=== PATIENT | female | born 1935 | race Caucasian/White ===

== ENCOUNTER → 2017-08-29 | Outpatient (CLI) | payer MEDICARE, SELFPAY | PROVIDERS: Visit Provider Nurse Practitioner Family | DX: R10.11 Right upper quadrant pain (principal) | CPT/HCPCS: 76705 ==

== ENCOUNTER 2017-10-14 14:24 | Emergency (ER) | payer MEDICARE, SELFPAY ==
[2017-10-14 14:30] VITALS: BP 118/70; PULSE 105; RESP 20; TEMP 36.7; O2SAT 96; BMI 34.0
[2017-10-14 15:08] VITALS: BP 125/67; PULSE 66; RESP 20; TEMP 36.6; O2SAT 98; BMI 34.0
--- NOTE | 2017-10-14 15:22 | PC.NURSE ---
STARTED BACTRIM FOR UTI YESTERDAY
--- NOTE | 2017-10-14 15:44 | HMH.EDUTC ---
[facility] [place] Disposition Clinical Impression: UTI (urinary tract infection) Qualifiers: Urinary tract infection type: site unspecified Hematuria presence: without hematuria Qualified Code(s): N39.0 - Urinary tract infection, site not specified Disposition: Home, Self-Care Condition on Discharge: Good Instructions: Urinary Tract Infection, Nitrofurantoin Additional Instructions: COntinue taking medication prescribed by family doctor Return if needed FOllow up with Family doctor if symptoms continue or worsen If you become confused or high fever go straight to ER Referrals: Jean Wade MD [Primary Care Provider] - Time of Disposition: 16:18 Medical Decision Making - Medical Records Medical records reviewed: Yes: I reviewed the patient's medical records. Vital Signs: 10/14/17 14:30 10/14/17 15:08 Temperature 98.0 F 98 F Temperature Source Oral Temporal Artery Scan Pulse Rate [Right Radial] 105 H 66 Respiratory Rate 20 20 Blood Pressure [Left Arm] 125/67 Blood Pressure [Right Arm] 118/70 Blood Pressure Mean [Left Arm] 86 Blood Pressure Mean [Right Arm] 86 Blood Pressure Source [Left Arm] Automatic Cuff Blood Pressure Source [Right Arm] Automatic Cuff Blood Pressure Position [Left Arm] Sitting Blood Pressure Position [Right Arm] Sitting 02 Sat by Pulse Oximetry 96 98 Oxygen Delivery Method Room Air Room Air - Lab Data Lab Results 10/14/17 15:03: Urine Color Yellow, Urine Appearance Clear, Urine pH 6.5, Ur Specific [place] 1.015, Urine Protein 2+, Urine Glucose (UA) Negative, Urine Ketones 15, Urine Blood 1+, Urine Nitrate Negative, Urine Bilirubin Negative, Urine Urobilinogen 0.2, Ur Leukocyte Esterase 1+ A - Tunde Inquiry Pt receiving controlled substance: No Tunde was queried for this patient: No - Reevaluation(s) Time: 16:15 Reevaluation #1: Patient was seen and treated yesterday by family doctor for UTI and started on Macrobid was worried that she may have the flu because she began to have body aches and chills. Patient flu test negative, patient advised to continued taking Macrobid as prescribed and drink plenty of fluids and if symptoms continued or worsened to follow up with Dr Wade or ER [facility] [place] HPI - General Stated complaint: weak,urinating a lot and pain,chills Mode of Arrival: Ambulatory Source of Information: Patient Limitations: No Limitations Description of Symptoms (Recalled from Triage Doc. by RN): DYSURIA BEGAN FRIDAY HEENT Symptoms (Recalled from RN notes): No Resp Symptoms (Recalled from RN notes): No Skin Symptoms (Recalled from RN notes): No MS Symptoms (Recalled from RN notes): No Functional Status (Recalled from RN notes): N - History of Present Illness Provider Complaint: Patient state that she was diagnosed with UTI yesterday by family doctor and started on Macrobid State that she has taken 2 doses and state that she is still having chills and body aches State that she is not sure if those are coming from the UTI or if she may have caught the flu at the doctors office - Related Data Allergies Allergy/AdvReac Type Severity Reaction Status Date / Time Penicillins Allergy Intermediate I-HIVES/FLAQUITO Verified 10/14/17 15:12 H - Worker's Comp Is this a Worker's Comp case?: No H History I have reviewed the patient's past medical history: Yes Laterality Cases: Right: Total Hip Replacement - *Social History Alcohol Intake: never - Psychiatric History Expresses thoughts of harming self/others: None Suicide Plan Description: No Plan ROS Obtained: Yes All systems reviewed & no additional complaints - Constitutional Constitutional: Reports body ache, Reports chills Physical Exam - General General appearance: alert, in no apparent distress - Expanded ENT Exam External ear exam: Present: normal external inspection - Respiratory Respiratory exam: Present: normal lung sounds bilaterally. Absent: respiratory distress - Cardiovascular Car
[2017-10-14 15:52] LABS: Apearance,Urine Clear (Clear); Bilirubin,Urine Negative (Negative); Blood, Urine 1+ (Negative); Color,Urine Yellow (Yellow); Glucose,Urine (UA) Negative (Negative); Ketones,Urine 15 (Negative); PH,Urine 6.5 (5.0-8.5); Protein,Urine 2+ (Negative); Specific Gravity, Urine 1.015 (1.005-1.030)
[2017-10-14 15:53] LABS: UTC Leukocyte Esterase,Urine 1+ (Negative); UTC Nitrate,Urine Negative (Negative); Urobilinogen,Urine 0.2 EU/dl (0.2)
--- NOTE | 2017-10-14 15:53 | ED_ITS ---
[facility] [place] Disposition Clinical Impression: UTI (urinary tract infection) Qualifiers: Urinary tract infection type: site unspecified Hematuria presence: without hematuria Qualified Code(s): N39.0 - Urinary tract infection, site not specified Disposition: Home, Self-Care Condition on Discharge: Good Instructions: Urinary Tract Infection, Nitrofurantoin Additional Instructions: COntinue taking medication prescribed by family doctor Return if needed FOllow up with Family doctor if symptoms continue or worsen If you become confused or high fever go straight to ER Referrals: Jean Wade MD [Primary Care Provider] - Time of Disposition: 16:18 Medical Decision Making - Medical Records Medical records reviewed: Yes: I reviewed the patient's medical records. Vital Signs: 10/14/17 14:30 10/14/17 15:08 Temperature 98.0 F 98 F Temperature Source Oral Temporal Artery Scan Pulse Rate [Right Radial] 105 H 66 Respiratory Rate 20 20 Blood Pressure [Left Arm] 125/67 Blood Pressure [Right Arm] 118/70 Blood Pressure Mean [Left Arm] 86 Blood Pressure Mean [Right Arm] 86 Blood Pressure Source [Left Arm] Automatic Cuff Blood Pressure Source [Right Arm] Automatic Cuff Blood Pressure Position [Left Arm] Sitting Blood Pressure Position [Right Arm] Sitting 02 Sat by Pulse Oximetry 96 98 Oxygen Delivery Method Room Air Room Air - Lab Data Lab Results 10/14/17 15:03: Urine Color Yellow, Urine Appearance Clear, Urine pH 6.5, Ur Specific [place] 1.015, Urine Protein 2+, Urine Glucose (UA) Negative, Urine Ketones 15, Urine Blood 1+, Urine Nitrate Negative, Urine Bilirubin Negative, Urine Urobilinogen 0.2, Ur Leukocyte Esterase 1+ A - Tunde Inquiry Pt receiving controlled substance: No Tunde was queried for this patient: No - Reevaluation(s) Time: 16:15 Reevaluation #1: Patient was seen and treated yesterday by family doctor for UTI and started on Macrobid was worried that she may have the flu because she began to have body aches and chills. Patient flu test negative, patient advised to continued taking Macrobid as prescribed and drink plenty of fluids and if symptoms continued or worsened to follow up with Dr Wade or ER [facility] [place] HPI - General Stated complaint: weak,urinating a lot and pain,chills Mode of Arrival: Ambulatory Source of Information: Patient Limitations: No Limitations Description of Symptoms (Recalled from Triage Doc. by RN): DYSURIA BEGAN FRIDAY HEENT Symptoms (Recalled from RN notes): No Resp Symptoms (Recalled from RN notes): No Skin Symptoms (Recalled from RN notes): No MS Symptoms (Recalled from RN notes): No Functional Status (Recalled from RN notes): N - History of Present Illness Provider Complaint: Patient state that she was diagnosed with UTI yesterday by family doctor and started on Macrobid State that she has taken 2 doses and state that she is still having chills and body aches State that she is not sure if those are coming from the UTI or if she may have caught the flu at the doctors office - Related Data Allergies Allergy/AdvReac Type Severity Reaction Status Date / Time Penicillins Allergy Intermediate I-HIVES/FLAQUITO Verified 10/14/17 15:12 H - Worker's Comp Is this a Worker's Comp case?: No [facility] History I have reviewed the patient's past medical history: Yes Laterality Cases: Right: Total Hip Replacement
[2017-10-14 16:27] VITALS: BP 125/67; PULSE 66; RESP 18; TEMP 36.6
[2017-10-14 16:27] LABS: UTC Influenza A Antigen Negative (Negative); UTC Influenza B Antigen Negative (Negative)
== END 2017-10-14 16:27 | disposition home or self-care (01) ==
LOC: ER 14:37 → UTC 14:43
PROVIDERS: Emergency Provider Nurse Practitioner; Family Provider Family Medicine; PCP Family Medicine
DX: N39.0 Urinary tract infection, site not specified (principal)
CPT/HCPCS: 81003; 87804; 99201

== ENCOUNTER 2017-10-18 14:10 | Observation (INO) | payer MEDICARE, SELFPAY ==
[2017-10-18] VITALS (7 sets, daily range): BP systolic 119–125; BP diastolic 65–73; PULSE 79–97; RESP 16–20; TEMP 36.6–36.9; O2SAT 94–97; BMI 33.5; BMI 32.8; BMI 34.4
--- NOTE | 2017-10-18 14:38 | HMH.EDUTC ---
[facility] [place] Disposition Clinical Impression: Pneumonia Qualifiers: Pneumonia type: due to unspecified organism Laterality: left Lung location: unspecified part of lung Qualified Code(s): J18.9 - Pneumonia, unspecified organism Disposition: Admitted As Inpatient Condition on Discharge: Fair Time of Disposition: 17:44 Medical Decision Making - Medical Records Medical records reviewed: Yes: I reviewed the patient's medical records. Vital Signs: 10/18/17 14:13 10/18/17 14:33 Temperature 98.0 F 98 F Temperature Source Oral Temporal Artery Scan Pulse Rate [Left Brachial] 97 H 97 H Respiratory Rate 20 20 Blood Pressure [Left Arm] 122/67 122/65 Blood Pressure Mean [Left Arm] 85 84 Blood Pressure Source [Left Arm] Automatic Cuff Automatic Cuff Blood Pressure Position [Left Arm] Sitting Sitting 02 Sat by Pulse Oximetry 96 Oxygen Delivery Method Room Air - Lab Data Lab results reviewed: Yes: I reviewed the patient's lab results. Lab Results 10/18/17 15:25: WBC 18.7 H, RBC 3.76 L, Hgb 11.1 L, Hct 34.7 L, MCV 92.5, MCH 29.7, MCHC 32.1, RDW 12.1, Plt Count 273, MPV 7.9, Neut % (Auto) 90.1 H, Lymph % (Auto) 5.0 L, [place] % (Auto) 3.9, Eos % (Auto) 0.8, Baso % (Auto) 0.2, Neut # (Auto) 16.9 H, Lymph # (Auto) 0.9, [place] # (Auto) 0.7, Eos # (Auto) 0.2, Baso # (Auto) 0.1, Total Counted 100, Neutrophils % (Manual) 87 H, Band Neutrophils % 1.0, Lymphocytes % (Manual) 5 L, Monocytes % (Manual) 5, Eosinophils % (Manual) 2, Platelet Estimate Normal, RBC Morphology Normal 10/18/17 15:25: Sodium 138, Potassium 4.7, Chloride 102, Carbon Dioxide 24, Anion Gap 16.7 H, BUN 23 H, Creatinine 1.11 H, Estimated Creat Clear 54, Estimated GFR 47 L, Est GFR ( Amer) 57 L, Glucose 131 H, Calcium 9.1, Total Bilirubin 0.4, AST 21, ALT 29, Alkaline Phosphatase 107, Total Protein 7.4, Albumin 3.0 L, Globulin 4.4 H, Albumin/Globulin Ratio 0.7 L 10/18/17 15:25: Hemoglobin A1c 6.5 Result diagrams: 10/18/17 15:25 10/18/17 15:25 Orders (Tests/Meds): ED MEDICATIONS Generic Name Dose Route Start Last Admin Trade Name Freq PRN Reason Stop Dose Admin Acetaminophen 650 mg 10/18/17 16:39 Acetaminophen 325mg Tab PO 11/17/17 16:38 Q4HP PRN As Needed for Fever or Pain Hydrocodone Bitart/Acetaminophen tab 10/18/17 16:39 [place] 5/325mg Tablet PO 11/17/17 16:38 Q4HP PRN Moderate Pain Albuterol Sulfate 2.5 mg 10/18/17 16:46 Albuterol 0.083% 2.5mg/3ml Neb IH 11/17/17 16:45 Q4HP PRN Wheezing Sodium Chloride 1,000 mls @ 50 mls/hr 10/18/17 16:45 Sod Chlor 0.9% 1000ml Bag IV 11/17/17 16:44 .Q20H GENESIS Levofloxacin/Dextrose 500 mg in 100 mls @ 100 mls/hr 10/18/17 16:45 Levaquin 500mg/100ml Premix IV 11/01/17 16:44 Q24H GENESIS Protocol Azithromycin 500 mg/ Sodium 250 mls @ 250 mls/hr 10/18/17 16:45 Chloride IV 11/01/17 16:44 Q24H GENESIS Protocol Methylprednisolone Sodium Succinate 125 mg 10/18/17 16:47 Solu-Medrol 125mg/2ml Vial IV 10/18/17 16:48 ONCE ONE Pantoprazole Sodium 40 mg 10/19/17 09:00 Protonix 40mg Tablet PO 11/18/17 08:59 DAILY GENESIS ORDERS Category Date Time Status Lactic Acid Stat Lab 10/18/17 16:44 Ordered Urine Culture Stat Micro 10/18/17 15:39 Received - Radiology Data #1 Image(s): Chest Image Reviewed: Yes I reviewed the patient's radiology image w/the ED provider Preliminary Findings: Abnormal (left perihilar infiltrate) - Tunde Inquiry Pt receiving controlled substance: No [facility] [place] HPI - General Stated complaint: cough Time Seen by Provider: 10/18/17 14:38 Mode of Arrival: Ambulatory Source of Information: Patient Limitations: No Limitations Description of Symptoms (Recalled from Triage Doc. by RN): PT ADVISES SHE WAS RECENTLY DX WITH A UTI. PT HAS SINCE DEVELOPED A COUGH AND FEVER HEENT Symptoms (Recalled from RN notes): No Resp Symptoms (Recalled from RN notes): Yes (COUGH)
--- NOTE | 2017-10-18 14:43 | ED_ITS ---
[facility] [place] Clinical Impression: Pneumonia Qualifiers: Pneumonia type: due to unspecified organism Laterality: left Lung location: unspecified part of lung Qualified Code(s): J18.9 - Pneumonia, unspecified organism Disposition: Admitted As Inpatient Condition on Discharge: Fair Time of Disposition: 17:44 Medical Decision Making - Medical Records Medical records reviewed: Yes: I reviewed the patient's medical records. Vital Signs: 10/18/17 14:13 10/18/17 14:33 Temperature 98.0 F 98 F Temperature Source Oral Temporal Artery Scan Pulse Rate [Left Brachial] 97 H 97 H Respiratory Rate 20 20 Blood Pressure [Left Arm] 122/67 122/65 Blood Pressure Mean [Left Arm] 85 84 Blood Pressure Source [Left Arm] Automatic Cuff Automatic Cuff Blood Pressure Position [Left Arm] Sitting Sitting 02 Sat by Pulse Oximetry 96 Oxygen Delivery Method Room Air - Lab Data Lab results reviewed: Yes: I reviewed the patient's lab results. Lab Results 10/18/17 15:25: WBC 18.7 H, RBC 3.76 L, Hgb 11.1 L, Hct 34.7 L, MCV 92.5, MCH 29.7, MCHC 32.1, RDW 12.1, Plt Count 273, MPV 7.9, Neut % (Auto) 90.1 H, Lymph % (Auto) 5.0 L, [place] % (Auto) 3.9, Eos % (Auto) 0.8, Baso % (Auto) 0.2, Neut # ( Auto) 16.9 H, Lymph # (Auto) 0.9, [place] # (Auto) 0.7, Eos # (Auto) 0.2, Baso # ( Auto) 0.1, Total Counted 100, Neutrophils % (Manual) 87 H, Band Neutrophils % 1.0, Lymphocytes % (Manual) 5 L, Monocytes % (Manual) 5, Eosinophils % (Manual) 2, Platelet Estimate Normal, RBC Morphology Normal 10/18/17 15:25: Sodium 138, Potassium 4.7, Chloride 102, Carbon Dioxide 24, Anion Gap 16.7 H, BUN 23 H, Creatinine 1.11 H, Estimated Creat Clear 54, Estimated GFR 47 L, Est GFR ( Amer) 57 L, Glucose 131 H, Calcium 9.1, Total Bilirubin 0.4, AST 21, ALT 29, Alkaline Phosphatase 107, Total Protein 7.4 , Albumin 3.0 L, Globulin 4.4 H, Albumin/Globulin Ratio 0.7 L 10/18/17 15:25: Hemoglobin A1c 6.5 Result diagrams: 10/18/17 15:25 10/18/17 15:25 Orders (Tests/Meds): ED MEDICATIONS Generic Name Dose Route Start Last Admin Trade Name Freq PRN Reason Stop Dose Admin Acetaminophen 650 mg 10/18/17 16:39 Acetaminophen 325mg Tab PO 11/17/17 16:38 Q4HP PRN As Needed for Fever or Pain Hydrocodone Bitart/Acetaminophen tab 10/18/17 16:39 [place] 5/325mg Tablet PO 11/17/17 16:38 Q4HP PRN Moderate Pain Albuterol Sulfate 2.5 mg 10/18/17 16:46 Albuterol 0.083% 2.5mg/3ml Neb IH 11/17/17 16:45 Q4HP PRN Wheezing Sodium Chloride 1,000 mls @ 50 mls/hr 10/18/17 16:45 Sod Chlor 0.9% 1000ml Bag IV 11/17/17 16:44 .Q20H GENESIS Levofloxacin/Dextrose 500 mg in 100 mls @ 100 mls/hr 10/18/17 16:45 Levaquin 500mg/100ml Premix IV 11/01/17 16:44 Q24H GENESIS Protocol Azithromycin 500 mg/ Sodium 250 mls @ 250 mls/hr 10/18/17 16:45 Chloride IV 11/01/17 16:44 Q24H GENESIS Protocol Methylprednisolone Sodium Succinate 125 mg 10/18/17 16:47 Solu-Medrol 125mg/2ml Vial IV 10/18/17 16:48 ONCE ONE Pantoprazole Sodium 40 mg 10/19/17 09:00 Protonix 40mg Tablet PO 11/18/17 08:59 DAILY GENESIS ORDERS Category Date Time Status Lactic Acid Stat Lab 10/18/17 16:44 Ordered Urine Cul
--- NOTE | 2017-10-18 15:16 | XR_ITS ---
XR chest 2V HISTORY: ITS.REASON: COUGH ORDERING PHYSICIAN: JAYCE Sr PATIENT AGE: 82 years COMPARISON: 07/17/2016 FINDINGS: The cardiomediastinal silhouette and pulmonary vascularity are within normal limits. Patchy density is present in the left midlung and left lower lobe with small left effusion.. Degenerative changes thoracic spine with mild kyphosis. IMPRESSION: Left lower lobe pneumonia with small effusion
[2017-10-18 15:36] LABS: Basophils # 0.1 K/mm3 (0-0.2); Basophils % 0.2 % (0.1-2.0); Eosinophils # 0.2 K/mm3 (0.0-0.4); Eosinophils % 0.8 % (0.1-12.0); Hematocrit 34.7 % (37.0-47.0); Hemoglobin 11.1 g/dL (12.2-16.2); Lymphocytes # 0.9 K/mm3 (0.7-4.5); Mean Corpuscular HGB Conc 32.1 g/dL (31.8-35.4); Mean Corpuscular Hemoglobin 29.7 pg (27.0-31.2); Mean Corpuscular Volume 92.5 fl (81-99); Mean Platelet Volume 7.9 fl (7.4-10.4); Monocytes # 0.7 K/mm3 (0.1-1.0); Monocytes % 3.9 % (1.7-9.3); Neutrophils # 16.9 K/mm3 (1.8-7.8); Neutrophils % 90.1 % (37.0-80.0); Platelet Count 273 K/mm3 (142-424); Red Blood Count 3.76 M/mm3 (4.20-5.40); Red Cell Distribution Width 12.1 % (11.5-17.5); White Blood Count 18.7 K/mm3 (4.8-10.8)
[2017-10-18 15:39] LABS: MANUAL DIFFERENTIAL MANUAL DIFFERENTIAL (MANUAL DIFF)
[2017-10-18 15:48] LABS: Alanine Aminotransferase 29 U/L (12-78); Albumin/Globulin Ratio 0.7 (1.1-1.8); Alkaline Phosphatase 107 U/L (46-116); Anion Gap 16.7 mEq/L (5-15); Aspartate Amino Transferase 21 U/L (15-37); Bilirubin,Total 0.4 mg/dL (0.2-1.0); Blood Urea Nitrogen 23 mg/dL (7-18); Calcium 9.1 mg/dL (8.5-10.1); Carbon Dioxide 24 mmol/L (21.0-32.0); Chloride 102 mmol/L (98-107); Creatinine Clearance Estimated 54 mL/min (0-300); Creatinine,Serum 1.11 mg/dL (0.55-1.02); Estimated Glomerular Filt Rate 47 ml/min (>60); GFR (African American) 57 ML/MIN (>60); Globulin 4.4 gm/dl (1.3-3.2); Glucose 131 mg/dL (74-106); Potassium 4.7 mmoL/L (3.5-5.1); Sodium 138 mmol/L (136-145); Total Protein,Serum 7.4 gm/dL (6.4-8.2)
[2017-10-18 15:53] LABS: Hemoglobin A1C 6.5 % (0.0-7.0)
[2017-10-18 16:07] LABS: Eosinophils % 2 % (0-3); Lymphocytes % 5 % (10-50); Monocytes % 5 % (2-9); Neutrophils % 87 % (42-76); Platelet Estimate Normal; RBC Morphology Normal; Total Cells Counted 100
--- NOTE | 2017-10-18 17:14 | PC.NURSE ---
PT TO BE ADMITTED TO DR CAT' SERVICE. PT GOING TO ROOM 211
--- NOTE | 2017-10-18 18:41 | HMH.HP ---
*Admission Date: 10/18/17 *Chief complaint: Shortness of breath *History of present illness: Patient states that she called her PCP on 10/14/17 with complains of dysuria. They called her in Macrobid for UTI. Later that day, she developed fever and cough. Was seen at [facility] and tested negative for the flu. Has continued to take Macrobid for UTI but has also continued to feel worse. Fever has persisted. She then developed pain in her left low back and shortness of air with exertion. Cough is sometimes productive. Denies ear pain. Denies sore throat, but states that mouth is sore since taking Macrobid. Has some nausea. No vomiting or diarrhea. No appetite. Denies history of cardiac problems. No history of breathing problems until this event. Says urinary urgency and dysuria are improving. [facility] History I have reviewed the patient's past medical history: Yes Medical History: Denies:: Coronary Artery Disease, Diabetes Mellitus Type 1, Diabetes Mellitus Type 2, Heart Murmur Laterality Cases: Right: Total Hip Replacement - *Social History Smoking Status: Never smoker Alcohol Intake: never - Psychiatric History Expresses thoughts of harming self/others: None Suicide Plan Description: No Plan Review of Systems - Review of Systems Review of systems:: pertinent systems reviewed and negative unless documented below - Constitutional Reports body ache(s), Reports chills, Reports fever(s), Reports headache(s), Reports lack of energy, Reports malaise, Reports weakness - ENT Reports headache(s), Reports other (mouth soreness), Denies ear pain, Denies sinus pressure, Denies sore throat - *Cardiovascular Reports shortness of breath, Denies chest pain - *Respiratory Reports chest congestion, Reports shortness of breath - *Gastrointestinal Reports nausea, Denies loose stools, Denies vomiting - *Genitourinary Reports painful urination, Reports urinary urgency - *Musculoskeletal Reports back pain - *Neurologic Reports weakness, Denies dizziness Meds Allergies Allergy/AdvReac Type Severity Reaction Status Date / Time Penicillins Allergy Intermediate I-HIVES/FLAQUITO Verified 10/14/17 15:12 H Exam Vital signs and Labs for Last 24 Hours: Temp Pulse Resp BP Pulse Ox 98.0 F 79 20 119/70 97 10/18/17 17:56 10/18/17 17:56 10/18/17 17:56 10/18/17 17:56 10/18/17 17:56 - Constitutional no acute distress - *Routine HEENT Exam Head: Present: normocephalic, atraumatic Eye: Present: EOMI, PERRL. Absent: scleral injection ENT: Present: mucous membranes moist - *Routine Neck Exam Present: supple, full ROM. Absent: lymphadenopathy - Routine Chest/Breast/Axilla Exam Chest wall: Absent: tenderness - *Routine Respiratory Exam Present: decreased breath sounds, rhonchi, diminished air movement. Absent: accessory muscle use, respiratory distress Comments: left lob - *Routine Cardiovascular Exam Present: RRR. Absent: murmur - *Routine Abdominal Exam Present: soft - *Routine Extremities Exam Absent: cyanosis, clubbing, edema - Routine Back/Spine/Pelvis Exam Back/Spine: Present: CVA tenderness (mild bilaterally) - *Routine Skin Exam Present: intact, dry. Absent: cyanosis, erythema - *Routine Neurological Exam Present: alert, oriented X3 - Routine Psychiatric Exam Present: normal affect, normal thought process H&P: Result - Labs Labs: WBC 18.7. - Imaging and Cardiology Chest x-ray Additional comments: Left perihilar infiltrate Assessment and Plan (1) Pneumonia Start date: 10/18/17 Current visit: Yes Status: Acute Qualifiers: Pneumonia type: due to unspecified organism Laterality: left Lung location: unspecified part of lung Qualified Code(s): J18.9 - Pneumonia, unspecified organism Category: Medical Code(s): J18.9 - Pneumonia, unspecified organism (2) UTI (urinary tract infection) Start date: 10/14/17 Current visit: No S
--- NOTE | 2017-10-18 18:44 | P.HP_ITS ---
*Admission Date: 10/18/17 *Chief complaint: Shortness of breath *History of present illness: Patient states that she called her PCP on 10/14/17 with complains of dysuria. They called her in Macrobid for UTI. Later that day, she developed fever and cough. Was seen at [facility] and tested negative for the flu. Has continued to take Macrobid for UTI but has also continued to feel worse. Fever has persisted. She then developed pain in her left low back and shortness of air with exertion. Cough is sometimes productive. Denies ear pain. Denies sore throat, but states that mouth is sore since taking Macrobid. Has some nausea. No vomiting or diarrhea. No appetite. Denies history of cardiac problems. No history of breathing problems until this event. Says urinary urgency and dysuria are improving. [facility] History I have reviewed the patient's past medical history: Yes Medical History: Denies:: Coronary Artery Disease, Diabetes Mellitus Type 1, Diabetes Mellitus Type 2, Heart Murmur Laterality Cases: Right: Total Hip Replacement - *Social History Smoking Status: Never smoker Alcohol Intake: never - Psychiatric History Expresses thoughts of harming self/others: None Suicide Plan Description: No Plan Review of Systems - Review of Systems Review of systems:: pertinent systems reviewed and negative unless documented below - Constitutional Reports body ache(s), Reports chills, Reports fever(s), Reports headache(s), Reports lack of energy, Reports malaise, Reports weakness - ENT Reports headache(s), Reports other (mouth soreness), Denies ear pain, Denies sinus pressure, Denies sore throat - *Cardiovascular Reports shortness of breath, Denies chest pain - *Respiratory Reports chest congestion, Reports shortness of breath - *Gastrointestinal Reports nausea, Denies loose stools, Denies vomiting - *Genitourinary Reports painful urination, Reports urinary urgency - *Musculoskeletal Reports back pain - *Neurologic Reports weakness, Denies dizziness Meds Allergies Allergy/AdvReac Type Severity Reaction Status Date / Time Penicillins Allergy Intermediate I-HIVES/FLAQUITO Verified 10/14/17 15:12 H Exam Vital signs and Labs for Last 24 Hours: Temp Pulse Resp BP Pulse Ox 98.0 F 79 20 119/70 97 10/18/17 17:56 10/18/17 17:56 10/18/17 17:56 10/18/17 17:56 10/18/17 17:56 - Constitutional no acute distress - *Routine HEENT Exam Head: Present: normocephalic, atraumatic Eye: Present: EOMI, PERRL. Absent: scleral injection ENT: Present: mucous membranes moist - *Routine Neck Exam Present: supple, full ROM. Absent: lymphadenopathy - Routine Chest/Breast/Axilla Exam Chest wall: Absent: tenderness - *Routine Respiratory Exam Present: decreased breath sounds, rhonchi, diminished air movement. Absent: accessory muscle use, respiratory distress Comments: left lob - *Routine Cardiovascular Exam Present: RRR. Absent: murmur - *Routine Abdominal Exam Present: soft - *Routine Extremities Exam Absent: cyanosis, clubbing, edema - Routine Back/Spine/Pelvis Exam Back/Spine: Present: CVA tenderness (mild bilaterally) - *Routine Skin Exam Present: intact, dry. Absent: cyanosis, erythema - *Routine Neurological Exam Present: alert, oriented X3 - Routine Psychiatric Exam Present: normal affect, normal thought process H&P: Result - Labs
[2017-10-18 19:42] LABS: Lactic Acid 0.9 mmol/L (0.4-2.0)
[2017-10-19] VITALS (7 sets, daily range): BP systolic 113–165; BP diastolic 71–81; PULSE 73–95; RESP 18–20; TEMP 36.7–36.9; O2SAT 93–95
--- NOTE | 2017-10-19 03:17 | PC.NURSE ---
PT HAS RESTED BRIEF PERIODS THIS SHIFT. DENIES PAIN AND SOA. BOWEL SOUNDS ARE ACTIVE IN ALL 4 QUADS. PT MAINTAINING O2 SATS IN THE 90'S ON RA. BREATH SOUNDS WERE CLEAR ON AUSCULTATION. PT AMBULATED TO AND FROM BR INDEPENDENTLY, TOLERATES WELL. VSS. CALL LIGHT WITHIN REACH. NO ACUTE DISTRESS AT THIS TIME. WILL CONT. TO MONITOR.
--- NOTE | 2017-10-19 08:06 | HMH.ACPN2 ---
Internal Medicine - PN: Subj *Date: 10/19/17 *Time: 08:06 Interval history: Patient reports in improvement in left-sided back discomfort associated with her pneumonia. She denies shortness of breath this morning. She still feels weak and has not been out of bed yet Exam Vital signs and Labs for Last 24 Hours: Temp Pulse Resp BP Pulse Ox 98.5 F 86 20 113/71 95 10/19/17 07:18 10/19/17 07:18 10/19/17 07:18 10/19/17 07:18 10/19/17 07:18 Laboratory Results - last 24 hr 10/18/17 19:00: Lactic Acid 0.9 I & O for Last 24 hours: Intake & Output 10/16/17 10/17/17 10/18/17 10/19/17 11:59 11:59 11:59 11:59 Intake Total 329 / 329 Balance 329 / 329 Weight 190 lb 3 oz Narrative: She is in no distress and looks well. Lungs have rales at the left lung base. Heart has a regular rate and rhythm. Assessment and Plan (1) Pneumonia Start date: 10/18/17 Current visit: Yes Status: Acute Qualifiers: Pneumonia type: due to unspecified organism Laterality: left Lung location: unspecified part of lung Qualified Code(s): J18.9 - Pneumonia, unspecified organism Category: Medical Code(s): J18.9 - Pneumonia, unspecified organism (2) UTI (urinary tract infection) Start date: 10/14/17 Current visit: No Status: Acute Qualifiers: Urinary tract infection type: acute cystitis Hematuria presence: without hematuria Qualified Code(s): N30.00 - Acute cystitis without hematuria Category: Medical Code(s): N39.0 - Urinary tract infection, site not specified (3) Anemia Current visit: Yes Status: Chronic Category: Medical Code(s): D64.9 - Anemia, unspecified - Assessment and plan all Dx Assessment and Plan for all problems:: Continue antibiotics. Change to Rocephin and azithromycin. Patient does have a penicillin allergy but I believe her Rocephin will be safe to give. Anticipate short stay
--- NOTE | 2017-10-19 09:42 | P.CONPHA_ITS ---
[facility] Pharmacy VTE Monitoring - Patient Demographics Admission date: 10/19/17 Report Date: 10/19/17 Time: 09:42 Allergies/Adverse Reactions: Patient Allergies Penicillins Allergy (Intermediate, Verified 10/14/17 15:12) I-HIVES/RASH Height: 1.57 m Weight: 86.268 kg Patient Problems: Current Active Problems Pneumonia (Acute) Anemia (Chronic) - VTE Risk Labs: VTE Related Lab Results Hgb 11.1 g/dL (12.2-16.2) L 10/18/17 15:25 Hct 34.7 % (37.0-47.0) L 10/18/17 15:25 Plt Count 273 K/mm3 (142-424) 10/18/17 15:25 BUN 23 mg/dL (7-18) H 10/18/17 15:25 Creatinine 1.11 mg/dL (0.55-1.02) H 10/18/17 15:25 Estimated Creat Clear 54 mL/min (0-300) 10/18/17 15:25 Was VTE Risk Assessment Performed: Yes VTE Score: 1 VTE Risk Level: Low Risk - VTE Diagnosis Confirmed Comment: LEIA FLETCHER
[2017-10-20] VITALS: BP 107/55; PULSE 76; RESP 18; TEMP 36.5; O2SAT 95
[2017-10-20 04:00] VITALS: BP 117/55; PULSE 74; RESP 20; TEMP 36.4; O2SAT 96
--- NOTE | 2017-10-20 04:03 | PC.NURSE ---
no changes from previous assessment, pt has rested well this shift, pt did state she has been feeling flushed and itchy throughout the day, pt denies pain, states she is SOA on exertion, breath sounds are slightly diminished but otherwise clear on auscultation, pt is maintaining O2 sats at or above 90 on room air, bowel sounds are active, no acute distress noted at this time, will continue to monitor.
--- NOTE | 2017-10-20 07:25 | HMH.DCSUM ---
General - General Admission date: 10/18/17 Discharge date: 10/20/17 HPI HPI: Patient states that she called her PCP on 10/14/17 with complains of dysuria. They called her in Macrobid for UTI. Later that day, she developed fever and cough. Was seen at [facility] and tested negative for the flu. Has continued to take Macrobid for UTI but has also continued to feel worse. Fever has persisted. She then developed pain in her left low back and shortness of air with exertion. Cough is sometimes productive. Denies ear pain. Denies sore throat, but states that mouth is sore since taking Macrobid. Has some nausea. No vomiting or diarrhea. No appetite. Denies history of cardiac problems. No history of breathing problems until this event. Says urinary urgency and dysuria are improving. Objective Vital signs: Temp Pulse Resp BP Pulse Ox 97.5 F L 74 20 117/55 96 10/20/17 04:00 10/20/17 04:00 10/20/17 04:00 10/20/17 04:00 10/20/17 04:00 Narrative: On exam patient had rales in the left lung base that improved each day during hospitalization. Hospital Course Hospital Course: Was admitted for observation of worsening symptoms as well as developing oxygen requirement. She never required supplemental oxygen. Physical exam improved each day in regards to left lower lobe rales. Energy level and appetite improved. She is continued on Rocephin and azithromycin while hospitalized in the discharge was discharged home on azithromycin only. Results Labs on day of discharge: Preliminary micro results at discharge 10/18/17 19:16 Blood Culture - Preliminary Blood NO GROWTH AFTER 24 HOURS 10/18/17 19:00 Blood Culture - Preliminary Blood NO GROWTH AFTER 24 HOURS DS: Diagnosis - Discharge Diagnosis (1) Pneumonia Status: Acute (2) UTI (urinary tract infection) Status: Acute (3) Anemia Status: Chronic Meds Home Medications Medication Instructions Recorded Confirmed Type Aspirin [Aspirin 81mg EC Tab] 81 mg PO DAILY 10/19/17 10/19/17 History Celecoxib [Celecoxib] 200 mg PO BID 10/19/17 10/19/17 History Cranberry Conc/C/Bacill Coag [Azo 2 each PO DAILY 10/19/17 10/19/17 History Cranberry Tablet] Ezetimibe [Zetia] 10 mg PO HS 10/19/17 10/19/17 History Meclizine HCl [Meclizine 25mg Tab] 25 mg PO TIDP PRN 10/19/17 10/19/17 History Simvastatin [Zocor] 40 mg PO HS 10/19/17 10/19/17 History Allergies Allergy/AdvReac Type Severity Reaction Status Date / Time Penicillins Allergy Intermediate I-HIVES/FLAQUITO Verified 10/14/17 15:12 H Discharge Plan - Patient Discharge Instructions ACTIVITY: Continue current activity DIET: continue same diet - Follow up Plan Disposition: Home, Self-Long-Term Medications: Home Medications Medication Instructions Recorded Confirmed Type Aspirin [Aspirin 81mg EC Tab] 81 mg PO DAILY 10/19/17 10/19/17 History Celecoxib [Celecoxib] 200 mg PO BID 10/19/17 10/19/17 History Cranberry Conc/C/Bacill Coag [Azo 2 each PO DAILY 10/19/17 10/19/17 History Cranberry Tablet] Ezetimibe [Zetia] 10 mg PO HS 10/19/17 10/19/17 History Meclizine HCl [Meclizine 25mg Tab] 25 mg PO TIDP PRN 10/19/17 10/19/17 History Simvastatin [Zocor] 40 mg PO HS 10/19/17 10/19/17 History Prescriptions/Medication Reconciliation: New Azithromycin [Z-Jw 250mg Tab] 250 mg PO UD DOSE PK #6 tab Continue Ezetimibe [Zetia] 10 mg PO HS Aspirin [Aspirin 81mg EC Tab] 81 mg PO DAILY Simvastatin [Zocor] 40 mg PO HS Meclizine HCl [Meclizine 25mg Tab] 25 mg PO TIDP PRN PRN Reason: Vertigo Cranberry Conc/C/Bacill Coag [Azo Cranberry Tablet] 2 each PO DAILY Celecoxib [Celecoxib] 200 mg PO BID
--- NOTE | 2017-10-20 07:28 | P.DS_ITS ---
General - General Admission date: 10/18/17 Discharge date: 10/20/17 HPI HPI: Patient states that she called her PCP on 10/14/17 with complains of dysuria. They called her in Macrobid for UTI. Later that day, she developed fever and cough. Was seen at [facility] and tested negative for the flu. Has continued to take Macrobid for UTI but has also continued to feel worse. Fever has persisted. She then developed pain in her left low back and shortness of air with exertion. Cough is sometimes productive. Denies ear pain. Denies sore throat, but states that mouth is sore since taking Macrobid. Has some nausea. No vomiting or diarrhea. No appetite. Denies history of cardiac problems. No history of breathing problems until this event. Says urinary urgency and dysuria are improving. Objective Vital signs: Temp Pulse Resp BP Pulse Ox 97.5 F L 74 20 117/55 96 10/20/17 04:00 10/20/17 04:00 10/20/17 04:00 10/20/17 04:00 10/20/17 04:00 Narrative: On exam patient had rales in the left lung base that improved each day during hospitalization. Hospital Course Hospital Course: Was admitted for observation of worsening symptoms as well as developing oxygen requirement. She never required supplemental oxygen. Physical exam improved each day in regards to left lower lobe rales. Energy level and appetite improved. She is continued on Rocephin and azithromycin while hospitalized in the discharge was discharged home on azithromycin only. Results Labs on day of discharge: Preliminary micro results at discharge 10/18/17 19:16 Blood Culture - Preliminary Blood NO GROWTH AFTER 24 HOURS 10/18/17 19:00 Blood Culture - Preliminary Blood NO GROWTH AFTER 24 HOURS DS: Diagnosis - Discharge Diagnosis (1) Pneumonia Status: Acute (2) UTI (urinary tract infection) Status: Acute (3) Anemia Status: Chronic Meds Home Medications Medication Instructions Recorded Confirmed Type Aspirin [Aspirin 81mg EC Tab] 81 mg PO DAILY 10/19/17 10/19/17 History Celecoxib [Celecoxib] 200 mg PO BID 10/19/17 10/19/17 History Cranberry Conc/C/Bacill Coag [Azo 2 each PO DAILY 10/19/17 10/19/17 History Cranberry Tablet] Ezetimibe [Zetia] 10 mg PO HS 10/19/17 10/19/17 History Meclizine HCl [Meclizine 25mg Tab] 25 mg PO TIDP PRN 10/19/17 10/19/17 History Simvastatin [Zocor] 40 mg PO HS 10/19/17 10/19/17 History Allergies Allergy/AdvReac Type Severity Reaction Status Date / Time Penicillins Allergy Intermediate I-HIVES/FLAQUITO Verified 10/14/17 15:12 H Discharge Plan - Patient Discharge Instructions ACTIVITY: Continue current activity DIET: continue same diet - Follow up Plan Disposition: Home, Self-Skilled Nursing Medications: Home Medications Medication Instructions Recorded Confirmed Type Aspirin [Aspirin 81mg EC Tab] 81 mg PO DAILY 10/19/17 10/19/17 History Celecoxib [Celecoxib] 200 mg PO BID 10/19/17 10/19/17 History Cranberry Conc/C/Bacill Coag [Azo 2 each PO DAILY 10/19/17 10/19/17 History Cranberry Tablet] Ezetimibe [Zetia] 10 mg PO HS 10/19/17 10/19/17 History Meclizine HCl [Meclizine 25mg Tab] 25 mg PO TIDP PRN 10/19/17 10/19/17 History Simvastatin [Zocor] 40 mg PO HS 10/19/17 10/19/17 History Pres
--- NOTE | 2017-10-20 07:31 | PC.NURSE ---
Report received from Valeria Keys RN
--- NOTE | 2017-10-20 08:38 | PC.NURSE ---
Pt A&Ox3 in NAD. VSS. Afebrile. Instructed pt on Discharge Instructions and follow up appointment /c Dr Wade on 10/27/17 @ 1000. Pt verbalizes understanding of all instructions. Pt waiting on family for transportation home.
[2017-10-21 13:10] LABS: Apearance,Urine Clear (Clear); Color,Urine Yellow (Yellow); PH,Urine 5.5 (5.0-8.5)
[2017-10-21 13:11] LABS: Bilirubin,Urine Negative (Negative); Blood, Urine Trace (Negative); Glucose,Urine (UA) Negative (Negative); Ketones,Urine Negative (Negative); Protein,Urine Negative (Negative); Specific Gravity, Urine 1.015 (1.005-1.030); UTC Leukocyte Esterase,Urine Trace (Negative); UTC Nitrate,Urine Negative (Negative); Urobilinogen,Urine 0.2 EU/dl (0.2)
== END 2017-10-20 08:50 | disposition home or self-care (01) ==
LOC: ER 14:25 → UTC 14:25 → 2ND 16:52
PROVIDERS: Admitting Provider Family Medicine; Emergency Provider Physician Assistant; Family Provider Family Medicine; PCP Family Medicine; Visit Provider Family Medicine
DX: J18.9 Pneumonia, unspecified organism (principal); N30.00 Acute cystitis without hematuria; D64.9 Anemia, unspecified; Z96.641 Presence of right artificial hip joint; Z88.0 Allergy status to penicillin
CPT/HCPCS: 36415; 71046; 80053; 81003; 83036; 83605; 85007; 85025; 87040; 87086; 99203; G0378; J0456; J1956

== ENCOUNTER → 2018-01-01 15:37 | Outpatient (CLI) | payer MEDICARE, SELFPAY ==
--- NOTE | 2018-01-01 15:46 | XR_ITS ---
EXAM: XR lumbar spine min 4V HISTORY: ITS.REASON: RT SIDED LOW BACK PAIN ORDERING PHYSICIAN: Evelyn Ly PATIENT AGE: 82 years COMPARISON: 01/29/2008 FINDINGS: There are severe degenerative changes of the lumbar spine with reversal of the thoracolumbar lordosis. Severe degenerative disc disease is present in the lower thoracic spine and throughout the lumbar spine at every level. Prominent bony hypertrophic changes are present on the right and anteriorly at L1-L2. Spurring is also noted at multiple other levels from L1 to S1. There is thoracic lumbar curvature convex left and lower lumbar curvature convex right. No acute fracture or dislocation evident. No obvious lytic or blastic change. Right hip total prosthesis is noted. IMPRESSION: Severe thoracic and lumbar spondylosis with scoliosis and bony spurring. These findings are progressed when compared to the previous exam
== END ==
PROVIDERS: PCP Nurse Practitioner Family; Visit Provider Nurse Practitioner Family
DX: M54.41 Lumbago with sciatica, right side (principal)
CPT/HCPCS: 72110

== ENCOUNTER → 2018-01-15 14:26 | Outpatient (CLI) | payer MEDICARE, SELFPAY ==
--- NOTE | 2018-01-15 14:29 | MR_ITS ---
MR lumbar spine wo con, MR 3-d myelogram/MRCP HISTORY: Mid and low back pain LBP worse on RT. Symptoms xyrs but worse [id number]. No trauma ITS.REASON: OTHER IDIOPATHIC SCOLIOSIS, THORACOLUMBAR ORDERING PHYSICIAN: Evelyn Ly PATIENT AGE: 82 years COMPARISON: X-RAY 01-01-18 TECHNIQUE: Standard multiplanar multiecho sequences are performed without contrast. 3-D MIP and myelographic images are also rendered and reviewed FINDINGS: Severe spondylosis of the lumbar spine is noted with multilevel degenerative disc disease along with facet ligamentum flavum hypertrophy and endplate osteophytes. The spinal cord ends at the T12-L1 level. T12-L1: There is fusion of the disc space anteriorly. Mild right facet and ligamentum flavum hypertrophy with mild right lateral recess narrowing. L1-L2: Degenerative disc disease with bulging disc along with facet and ligamentum flavum hypertrophy with moderate to severe right-sided foraminal narrowing. There is a dominant anterolateral osteophyte on the right. L2-L3: Severe degenerative disc disease with bulging disc along with endplate hypertrophic change and facet and ligamentum flavum hypertrophy with severe left-sided foraminal narrowing and mild right foraminal narrowing. There is transverse narrowing of the canal at 12 mm. L3-L4: Degenerative disc disease with bulging disc and facet and ligamentum flavum hypertrophy more severe on the left with severe left sided foraminal narrowing. L4-5: Degenerative disc disease with endplate and facet and ligamentum flavum hypertrophy. There is transverse canal stenosis along with severe bilateral lateral recess and foraminal narrowing secondary to the osteophytes. L5-S1: Mild anterolisthesis of L5 on S1 of 4 mm with bulging disc and there is facet and ligamentum flavum hypertrophy with moderate bilateral foraminal narrowing. There is severe right lateral recess narrowing from underlying hypertrophic changes of the facet and ligamentum flavum. No acute fracture or history herniated disc evident. IMPRESSION: Abnormal MRI of the lumbar spine with severe multilevel lumbar spondylosis comprised of degenerative disc disease, bulging disc, facet and ligamentum flavum hypertrophy with canal stenosis, lateral recess narrowing, and foraminal narrowing. Please see above for detailed descriptions at each level. No extruded herniated disc or acute fracture
--- NOTE | 2018-01-15 14:29 | MR_ITS ---
MR thoracic spine wo con HISTORY: Mid back pain worse on RT. Symptoms Xyrs but worse [id number]. No trauma ITS.REASON: OTHER IDIOPATHIC SCOLIOSIS, THORACOLUMBAR ORDERING PHYSICIAN: Evelyn Ly PATIENT AGE: 82 years COMPARISON: X-RAY 01-29-08 TECHNIQUE: Standard multiplanar multiecho sequences are performed without contrast. 3-D MIP and myelographic images are also rendered and reviewed FINDINGS: There is normal alignment. There is multilevel degenerative disc disease from T1 to T12 T1-T2: Bilateral dural ectasia more prominent on the right with degenerative disc disease T2-T3: Degenerative disc disease with bulging disc. Left-sided dural ectasia T3-T4 degenerative disc disease with mild right foraminal narrowing from hypertrophic changes at the costovertebral joint. T4-T5: Degenerative disc disease T5-T6: Degenerative disc disease. T6-T7: Degenerative disc disease with mild bulging disc T7-T8: Degenerative disc disease with type I endplate changes anteriorly with minimal bulging disc and mild bilateral neural ectasia. There is mild left-sided foraminal narrowing and minimal left paracentral disc protrusion. T8-T9 degenerative disc disease with minimal bulging disc and small left paracentral disc protrusion/disc osteophyte complex causing mild left lateral recess narrowing. T9-T10: There is fusion of the disc space at this level. There is left-sided neural ectasia and there is severe bilateral foraminal narrowing from underlying facet hypertrophic change. There is borderline canal stenosis at 12 millimeters. T10-T11: Degenerative disc disease with mild bulging disc along with facet and ligamentum hypertrophy with bilateral lateral recess narrowing and mild left-sided neural ectasia. T11-12: Degenerative disc disease with bulging disc along with moderate to severe facet and ligamentum flavum hypertrophy causing bilateral lateral recess and foraminal narrowing right greater than left and canal stenosis. No acute fracture. IMPRESSION: Abnormal MRI of the thoracic spine with multilevel thoracic spondylosis comprised of degenerative disc disease, bulging disc, and facet and ligamentum flavum hypertrophy with resultant lateral recess and foraminal narrowing and borderline canal stenosis. Please see above for detail description at each level Multilevel areas of dural ectasia. No acute fracture
== END ==
PROVIDERS: Family Provider Family Medicine; PCP Nurse Practitioner Family; Visit Provider Nurse Practitioner Family
DX: M41.25 Other idiopathic scoliosis, thoracolumbar region (principal)
CPT/HCPCS: 72146; 72148; 76376

== ENCOUNTER → 2018-02-26 08:54 | Outpatient (CLI) | payer MEDICARE, SELFPAY ==
--- NOTE | 2018-02-26 08:56 | XR_ITS ---
XR knee RT 4V Comparison: Right knee 4/5 view 07/04/2016 History: Long-standing right knee pain osteoarthritis Technique: Weightbearing AP, lateral and Nino views were performed as well as oblique. Findings: Severe arthritic changes at the right knee have progressed here at the medial compartment and compared to June 2016. Lateral compartment with [id number] appearance. Suggestion subtle diffuse erosive changes, diffuse subchondral cyst formation most evident along lateral femoral condyle.,-reflecting progressive arthritic changes here.. Additional sclerotic changes and cystic changes both sides the joint at the lateral compartment as well. Prominent marginal osteophytes tricompartmental but statistically evident at lateral compartment. Chondrocalcinosis at medial compartment. The 12 mm osseous density at the anterior aspect of the joint again noted. Although could reflect a intra-articular loose body of there is stable position of this area. Patellofemoral relationships appear stable. IMPRESSION. Advanced Arthritic changes left knee Specifically note Progressive of very severe degenerative changes at the lateral compartment left knee
== END ==
PROVIDERS: PCP Family Medicine; Visit Provider Orthopaedic Surgery
DX: M25.561 Pain in right knee (principal)
CPT/HCPCS: 73564

== ENCOUNTER → 2018-05-05 09:51 | Outpatient (CLI) | payer MEDICARE, SELFPAY ==
--- NOTE | 2018-05-05 09:53 | NM_ITS ---
NM gastric emptying study CLINICAL INDICATION: ITS.REASON: abdominal pain ORDERING PHYSICIAN: Rio French MD PATIENT AGE: 82 years Comparison: None DOSE: 0.53 mCi technetium sulfur colloid in radio labeled meal FINDINGS: The one half emptying time is 77 minutes which is within normal limits of 60 +/- 30 minutes. 38% of the gastric contents had emptied at 60 minutes. Images submitted show some activity in the area of the distal esophagus which may be related to reflux. IMPRESSION: 1. Normal gastric emptying time. 2. Possible gastroesophageal reflux
--- NOTE | 2018-05-05 10:18 | HMH.ITSHM ---
MULTIVITAMIN METHENAMINE LASOPRAZOLE MELATONIN LACTOBACILLUS GLUCOSAMINE ESTROGENS CALCIUM SIMVASTATIN MECLIZINE ZETIA CELECOXIB ASA
== END ==
PROVIDERS: Family Provider Family Medicine; PCP Family Medicine; Visit Provider Surgery
DX: R10.13 Epigastric pain (principal)
CPT/HCPCS: 78264; A9541

== ENCOUNTER → 2018-05-07 09:47 | Outpatient (CLI) | payer MEDICARE, SELFPAY ==
--- NOTE | 2018-05-07 09:49 | FL_ITS ---
FL upper GI small bowel HISTORY: Stomach pain, full feeling ITS.REASON: abdominal pain ORDERING PHYSICIAN: Rio French MD PATIENT AGE: 82 years Comparison: None FINDINGS: [employer] exam shows a mild amount retained colonic feces along with degenerative changes in the lumbar spine. There is a small hiatal hernia. There was some reflux noted during the exam along with some mild esophageal spasm. No ulcer or mass is evident. There is a small diverticulum projecting off the superior aspect of the transverse portion of the duodenum. Small bowel has an unremarkable appearance. There is normal transit time area no small bowel mass obstruction or mucosal abnormality is evident. FLUOROSCOPY TIME : 3 minutes and 32 seconds. IMPRESSION: 1. Small hiatal hernia with reflux and esophageal dysmotility 2. Otherwise negative upper GI and small bowel follow-through
== END ==
PROVIDERS: Family Provider Family Medicine; PCP Family Medicine; Visit Provider Surgery
DX: R10.13 Epigastric pain (principal)
CPT/HCPCS: 74245

== ENCOUNTER 2018-05-21 10:00 | Outpatient (RCR) | payer MEDICARE, SELFPAY | END 2018-05-21 10:01 | disposition home or self-care (01) | LOC: PT 10:00 | PROVIDERS: Family Provider Family Medicine; PCP Family Medicine; Visit Provider Orthopaedic Surgery | DX: M51.36 Other intervertebral disc degeneration, lumbar region | CPT/HCPCS: 97010; 97014; 97033; 97110; 97140; 97163; 97760; G0283 ==

== ENCOUNTER 2018-05-24 13:53 | Observation (INO) ==
--- NOTE | 2018-05-24 13:58 | Emergency Department Note ---
ED Disposition Clinical Impression: Precordial chest pain Disposition: Still a Patient Condition on Discharge: Good Referrals: Jean Wade MD [Primary Care Provider] - - Critical Care Critical Care Time: No Attestation: On , the high probability of a clinically significant, sudden or life threateni ng deterioration of the following system(s) required my full and direct attention, intervention and personal management. The time I documented below is in addition to time spent performing reported procedures but includes the following listed in this critical care notation. Medical Decision Making - [place] Inquiry Pt receiving controlled substance: No Vital Signs: 05/24/18 13:54 05/24/18 14:24 05/24/18 15:00 Temperature 97.9 F Temperature Source Oral Pulse Rate [Apical] 86 85 78 Respiratory Rate 18 18 Blood Pressure [Right Arm] 183/95 131/75 143/85 Blood Pressure Mean [Right Arm] 124 93 104 Blood Pressure Source [Right Arm] Automatic Cuff Automatic Cuff Automatic Cuff Blood Pressure Position [Right Arm] Sitting Sitting Supine 02 Sat by Pulse Oximetry 98 96 99 Oxygen Delivery Method Room Air Room Air Room Air 05/24/18 15:30 05/24/18 16:00 Temperature Temperature Source Pulse Rate [Apical] 74 78 Respiratory Rate 18 16 Blood Pressure [Right Arm] 133/74 126/75 Blood Pressure Mean [Right Arm] 93 92 Blood Pressure Source [Right Arm] Automatic Cuff Automatic Cuff Blood Pressure Position [Right Arm] Sitting Sitting 02 Sat by Pulse Oximetry 98 98 Oxygen Delivery Method Room Air Room Air - Lab Data Lab Results 05/24/18 14:10: WBC 7.7, RBC 3.79 L, Hgb 12.6, Hct 35.7 L, MCV 94.2, MCH 33.2 H, MCHC 35.2, RDW 12.3, Plt Count 189, MPV 7.5, Neut % (Auto) 73.5, Lymph % (Auto) 15.4, [place] % (Auto) 5.5, Eos % (Auto) 4.5, Baso % (Auto) 1.2, Neut # (Auto) 5.7, Lymph # (Auto) 1.2, [place] # (Auto) 0.4, Eos # (Auto) 0.4, Baso # (Auto) 0.1 05/24/18 14:10: Sodium 143, Potassium 4.2, Chloride 108 H, Carbon Dioxide 24, Anion Gap 15.2 H, BUN 33 H, Creatinine 1.31 H, Estimated Creat Clear 46, Estimated GFR 39 L, Est GFR ( Amer) 47 L, Glucose 143 H, Calcium 9.7, Troponin I < 0.02 Result diagrams: 05/24/18 14:10 05/24/18 14:10 Orders (Tests/Meds): ED MEDICATIONS Discontinued Medications Generic Name Dose Route Start Last Admin Trade Name Freq PRN Reason Stop Dose Admin Aspirin 243 mg 05/24/18 14:08 05/24/18 14:11 Aspirin 81mg Chewable Tablet PO 05/24/18 14:09 243 mg ONCE ONE Administration - Radiology Data #1 Image(s): Chest Image Reviewed: Yes I have reviewed radiologist's interpretation Possible mild cardiomegaly. Nothing acute. - ECG Data Tracing #1 EKG interpreted by Danilo Campos MD: Rhythm: sinus Rate: 90 [place]: normal Ectopy: Single PVC Conduction: normal ST Segment Changes: none T Wave Changes: none Q Waves: none Low voltage QRS Poor R-wave progression No signs of acute injury, ischemia, or infarction - Physician Consults Physician Consulted: Mauro Time: 15:30 Reason -: Admission Comment/Response: Agrees to admit the patient to the hospital. We discussed the patient's clinical information, including history, exam, laboratory and radiology results and ED course. Per hospital procedure, I will write temporary bridge inpatient orders on the patient. Specific orders requested by the admitting physician: Serial cardiac enzymes - Reevaluation(s) Time: 16:30 Reevaluation #1: Feels better, chest discomfort resolved spontaneously in the emergency department. Agreeable with admission. General Adult HPI - General Stated complaint: chest pain Time Seen by Provider: 05/24/18 14:09 - History of Present Illness HPI narrative: Complains of tightness in the chest off and on for 3-4 weeks. Current episode has been there all day long. Also had a sharp pain in the left anterior chest that woke her up from sleep during the night. States she is starting to have some heaviness of her left arm. States she is always short of breath, no recent change. No nausea or diaphoresis. She does not have any heart problems, hypertension, or diabetes. She is not a smoker. She is treated for hyperlipidemia. No history of coronary artery disease or myocardial infarction in her family. She has not had a stress test in several years. - Related Data Home Medications Medication Instructions Recorded Confirmed Aspirin [Aspirin 81mg EC Tab] 81 mg PO DAILY 10/19/17 05/24/18 Celecoxib 200 mg PO BID 10/19/17 05/24/18 Cranberry Conc/C/Bacill Coag [Azo 2 each PO DAILY 10/19/17 05/24/18 Cranberry Tablet] Ezetimibe [Zetia] 10 mg PO HS 10/19/17 05/24/18 Meclizine HCl [Meclizine 25mg Tab] 25 mg PO TIDP PRN 10/19/17 05/24/18 Simvastatin [Zocor] 40 mg PO HS 10/19/17 05/24/18 acetaminophen ER 650 mg 650 mg PO BID tab 02/26/18 05/24/18 tablet,extended release calcium carbonate-vitamin D3 600 1 cap PO DAILY 02/26/18 05/24/18 mg calcium-200 unit capsule conjugated estrogens 0.625 mg/gram 1 applic TOPICAL DIRECTED 02/26/18 05/24/18 vaginal cream glucosamine-chondroitin 250 mg-200 2 tab PO ONCE tab 02/26/18 05/24/18 mg tablet lactobacillus combination no.9 4 4,000 mmu cells PO ONCE 02/26/18 05/24/18 billion cell capsule lansoprazole 30 mg capsule,delayed 30 mg PO ONCE cap 02/26/18 05/24/18 release melatonin 5 mg capsule 5 mg PO .bedtime cap 02/26/18 05/24/18 methenamine hippurate 1 gram tablet 0.5 tab PO BID tab 02/26/18 05/24/18 multivitamin,xt-mchm-gkegoara 1 tab PO ONCE 02/26/18 05/24/18 tablet Allergies Allergy/AdvReac Type Severity Reaction Status Date / Time Penicillins Allergy Intermediate I-HIVES/FLAQUITO Verified 05/24/18 14:01 H [facility] History I have reviewed the patient's past medical history: Yes Medical History: Reports:: Hyperlipidemia Denies:: Cancer, Coronary Artery Disease, Diabetes Mellitus Type 1, Diabetes Mellitus Type 2, Heart Murmur, MRSA Laterality Cases: Right: Total Hip Replacement Other Surgeries: Yes: Colonoscopy Amputation: No Fractures: No - Social History Smoking Status: Never smoker Alcohol Intake: never Occupational Status: retired Housing: house Family Hx:: Cancer, Heart Attack, Hypertension ROS Obtained: Yes All systems reviewed & no additional complaints - Constitutional Constitutional: Denies fever(s) - Cardiovascular Cardiovascular: Reports chest pain, Denies diaphoresis - Respiratory Respiratory: Yes dyspnea (Chronic) - Gastrointestinal Gastrointestingal: Denies: nausea, vomiting - Musculoskeletal Musculoskeletal: Reports back pain (Chronic) Physical Exam - General General appearance: alert, in no apparent distress - Head Head exam: atraumatic, normocephalic, normal inspection - Eye Eye exam: Present: normal appearance, PERRL, EOMI - ENT ENT exam: Present: mucous membranes moist - Neck Neck exam: Present: normal inspection, full ROM, trachea midline. Absent: meningismus, lymphadenopathy - Chest Chest inspection: Present: normal inspection, symmetric chest wall rise. Absent: tenderness - Respiratory Respiratory exam: Present: normal lung sounds bilaterally. Absent: respiratory distress - Cardiovascular Cardiovascular exam: Present: regular rate, normal rhythm. Absent: JVD - Abdominal Exam Abdominal exam: Present: soft, normal bowel sounds. Absent: distention, tenderness, guarding - Extremities Exam Extremities exam: Present: normal inspection, full ROM, normal capillary refill. Absent: calf tenderness - Neurological Exam Neurological exam: Present: alert, oriented X3 - Psychiatric Psychiatric exam: Present: normal affect, normal mood - Skin Skin exam: Present: warm, dry, intact, normal color
[2018-05-24 14:31] LABS: Basophils # 0.1 K/mm3 (0-0.2); Basophils % 1.2 % (0.1-2.0); Eosinophils # 0.4 K/mm3 (0.0-0.4); Eosinophils % 4.5 % (0.1-12.0); Hematocrit 35.7 % (37.0-47.0); Hemoglobin 12.6 g/dL (12.2-16.2); Lymphocytes # 1.2 K/mm3 (0.7-4.5); Lymphocytes % 15.4 K/mm3 (10-50); Mean Corpuscular HGB Conc 35.2 g/dL (31.8-35.4); Mean Corpuscular Hemoglobin 33.2 pg (27.0-31.2); Mean Corpuscular Volume 94.2 fl (81-99); Mean Platelet Volume 7.5 fl (7.4-10.4); Monocytes # 0.4 K/mm3 (0.1-1.0); Monocytes % 5.5 % (1.7-9.3); Neutrophils # 5.7 K/mm3 (1.8-7.8); Neutrophils % 73.5 % (37.0-80.0); Platelet Count 189 K/mm3 (142-424); Red Blood Count 3.79 M/mm3 (4.20-5.40); Red Cell Distribution Width 12.3 % (11.5-17.5); White Blood Count 7.7 K/mm3 (4.8-10.8)
[2018-05-24 14:36] LABS: Anion Gap 15.2 mEq/L (5-15); Blood Urea Nitrogen 33 mg/dL (7-18); Calcium 9.7 mg/dL (8.5-10.1); Carbon Dioxide 24 mmol/L (21.0-32.0); Chloride 108 mmol/L (98-107); Glucose 143 mg/dL (74-106); Potassium 4.2 mmoL/L (3.5-5.1); Sodium 143 mmol/L (136-145)
--- NOTE | 2018-05-25 07:24 | History & Physical Report ---
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 Pressure would come and go and would last for 5-10 minutes at a time. Pressure was nonradiating but she did admit to a "funny feeling in my left neck". She has chronic dyspnea which was unchanged. She denies diaphoresis. She has no history of coronary disease. When symptoms continued throughout the day she sought treatment at the emergency department. In the emergency department she underwent evaluation which included a normal EKG and set of ca rdiac enzymes. She was not given any nitroglycerin. She was admitted for observation and serial troponins. She ruled out for CT overnight. This evening he denies chest pressure. She is scheduled for Lexiscan stress test this morning [facility] History I have reviewed the patient's past medical history: Yes Medical History: Reports:: Hyperlipidemia Denies:: Cancer, Coronary Artery Disease, Diabetes Mellitus Type 1, Diabetes Mellitus Type 2, Heart Murmur, MRSA Other Medical History: Reports: Arthritis, Cataracts, Sinus Problems Laterality Cases: Right: Total Hip Replacement Other Surgeries: Yes: Colonoscopy, Tubal Ligation Amputation: No Fractures: No - *Social History Educational Level: Completed College Smoking Status: Never smoker Alcohol Intake: never Occupational Status: retired Housing: house - Psychiatric History Expresses thoughts of harming self/others: None Suicide Plan Description: No Plan *Family Hx:: Cancer, Heart Attack, Hypertension Review of Systems - Review of Systems Review of systems:: pertinent systems reviewed and negative unless documented below Meds Home Medications Medication Instructions Recorded Confirmed Type Aspirin [Aspirin 81mg EC Tab] 81 mg PO DAILY 10/19/17 05/24/18 History Celecoxib 200 mg PO BID 10/19/17 05/24/18 History Cranberry Conc/C/Bacill Coag [Azo 2 each PO DAILY 10/19/17 05/24/18 History Cranberry Tablet] Ezetimibe [Zetia] 10 mg PO HS 10/19/17 05/24/18 History Meclizine HCl [Meclizine 25mg Tab] 25 mg PO TIDP PRN 10/19/17 05/24/18 History Simvastatin [Zocor] 40 mg PO HS 10/19/17 05/24/18 History acetaminophen ER 650 mg 650 mg PO BID tab 02/26/18 05/24/18 History tablet,extended release calcium carbonate-vitamin D3 600 1 cap PO DAILY 02/26/18 05/24/18 History mg calcium-200 unit capsule conjugated estrogens 0.625 mg/gram 1 applic TOPICAL DIRECTED 02/26/18 History vaginal cream glucosamine-chondroitin 250 mg-200 2 tab PO ONCE tab 02/26/18 05/24/18 History mg tablet lactobacillus combination no.9 4 4,000 mmu cells PO ONCE 02/26/18 05/24/18 History billion cell capsule lansoprazole 30 mg capsule,delayed 30 mg PO ONCE cap 02/26/18 05/24/18 History release melatonin 5 mg capsule 5 mg PO .bedtime cap 02/26/18 05/24/18 History methenamine hippurate 1 gram tablet 0.5 tab PO BID tab 02/26/18 05/24/18 History multivitamin,mv-nelp-gsbsrduc 1 tab PO ONCE 02/26/18 05/24/18 History tablet Allergies Allergy/AdvReac Type Severity Reaction Status Date / Time Penicillins Allergy Intermediate I-HIVES/FLAQUITO Verified 05/24/18 14:01 H Exam Vital signs and Labs for Last 24 Hours: Temp Pulse Resp BP Pulse Ox 97.8 F 80 16 131/81 96 05/25/18 03:43 05/25/18 04:00 05/25/18 03:43 05/25/18 03:43 05/25/18 03:43 Laboratory Results - last 24 hr 05/24/18 14:10: WBC 7.7, RBC 3.79 L, Hgb 12.6, Hct 35.7 L, MCV 94.2, MCH 33.2 H, MCHC 35.2, RDW 12.3, Plt Count 189, MPV 7.5, Neut % (Auto) 73.5, Lymph % (Auto) 15.4, [place] % (Auto) 5.5, Eos % (Auto) 4.5, Baso % (Auto) 1.2, Neut # (Auto) 5.7, Lymph # (Auto) 1.2, [place] # (Auto) 0.4, Eos # (Auto) 0.4, Baso # (Auto) 0.1 05/24/18 14:10: Sodium 143, Potassium 4.2, Chloride 108 H, Carbon Dioxide 24, Anion Gap 15.2 H, BUN 33 H, Creatinine 1.31 H, Estimated Creat Clear 46, Estimated GFR 39 L, Est GFR ( Amer) 47 L, Glucose 143 H, Calcium 9.7, Troponin I < 0.02 05/24/18 16:50: Troponin I < 0.02 05/24/18 20:15: Troponin I < 0.02 I & O for Last 24 hours: Intake & Output 05/22/18 05/23/18 05/24/18 05/25/18 11:59 11:59 11:59 11:59 Intake Total Balance Weight 193 lb Narrative: Patient is awake and alert in bed. She is oriented to person place and time. Oropharynx is moist. Neck is without carotid bruits. Lungs are clear to palpation. Heart has regular rate and rhythm. Abdomen is soft and nontender. She has no neurologic deficits. Assessment and Plan (1) Precordial chest pain Current visit: Yes Status: Acute Category: Medical Code(s): R07.2 - Precordial pain - Assessment and plan all Dx Assessment and Plan for all problems:: 1. Lexiscan stress test today. If negative she will be discharged home with positive cardiology will be consulted
--- NOTE | 2018-05-25 07:25 | Discharge Summary ---
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 Pressure would come and go and would last for 5-10 minutes at a time. Pressure was nonradiating but she did admit to a "funny feeling in my left neck". She has chronic dyspnea which was unchanged. She denies diaphoresis. She has no history of coronary disease. When symptoms continued throughout the day she sought treatment at the emergency department. In the emergency department she underwent evaluation which included a normal EKG and set of cardiac enzymes. She was not given any nitroglycerin. She was admitted for observation and serial troponins. She ruled out for [place] overnight. This evening he denies chest pressure. She is scheduled for Lexiscan stress test this morning Hospital Course Hospital Course: Patient ruled out for [place] with serial enzymes. She underwent Lexiscan stress test on the morning of the which was negative for ischemia. She was discharged home and will follow-up in the office in 3 days Objective Vital signs: Temp Pulse Resp BP Pulse Ox 97.8 F 80 16 131/81 96 05/25/18 03:43 05/25/18 04:00 05/25/18 03:43 05/25/18 03:43 05/25/18 03:43 Results Labs on day of discharge: Labs from last 24 hours 05/24/18 05/24/18 05/24/18 20:15 16:50 14:10 WBC RBC Hgb Hct MCV MCH MCHC RDW Plt Count MPV Neut % (Auto) Lymph % (Auto) [place] % (Auto) Eos % (Auto) Baso % (Auto) Neut # (Auto) Lymph # (Auto) [place] # (Auto) Eos # (Auto) Baso # (Auto) Sodium 143 Potassium 4.2 Chloride 108 H Carbon Dioxide 24 Anion Gap 15.2 H BUN 33 H Creatinine 1.31 H Estimated Creat Clear 46 Estimated GFR 39 L Est GFR ( Amer) 47 L Glucose 143 H Calcium 9.7 Troponin I < 0.02 < 0.02 < 0.02 05/24/18 14:10 WBC 7.7 RBC 3.79 L Hgb 12.6 Hct 35.7 L MCV 94.2 MCH 33.2 H MCHC 35.2 RDW 12.3 Plt Count 189 MPV 7.5 Neut % (Auto) 73.5 Lymph % (Auto) 15.4 [place] % (Auto) 5.5 Eos % (Auto) 4.5 Baso % (Auto) 1.2 Neut # (Auto) 5.7 Lymph # (Auto) 1.2 [place] # (Auto) 0.4 Eos # (Auto) 0.4 Baso # (Auto) 0.1 Sodium Potassium Chloride Carbon Dioxide Anion Gap BUN Creatinine Estimated Creat Clear Estimated GFR Est GFR ( Amer) Glucose Calcium Troponin I DS: Diagnosis - Discharge Diagnosis (1) Precordial chest pain Status: Acute Discharge Plan - Patient Discharge Instructions ACTIVITY: Continue current activity DIET: continue same diet Patient Instructions: DI for Chest Pain - Follow up Plan Follow up with: Jean Wade MD [Primary Care Provider] - 05/29/18 11:00 am Disposition: Home, Self-Half-Way Medications: Home Medications Medication Instructions Recorded Confirmed Type RX: Aspirin [Aspirin 81mg EC 81 mg PO DAILY 10/19/17 05/24/18 History Tab] RX: Celecoxib 200 mg PO BID 10/19/17 05/24/18 History RX: Cranberry Conc/C/Bacill Coag 2 each PO DAILY 10/19/17 05/24/18 History [Azo Cranberry Tablet] RX: Ezetimibe [Zetia] 10 mg PO HS 10/19/17 05/24/18 History RX: Meclizine HCl [Meclizine 25mg 25 mg PO TIDP PRN 10/19/17 05/24/18 History Tab] RX: Simvastatin [Zocor] 40 mg PO HS 10/19/17 05/24/18 History acetaminophen ER 650 mg 650 mg PO BID tab 02/26/18 05/24/18 History tablet,extended release calcium carbonate-vitamin D3 600 1 cap PO DAILY 02/26/18 05/24/18 History mg calcium-200 unit capsule conjugated estrogens 0.625 mg/gram 1 applic TOPICAL DIRECTED 02/26/18 8 History vaginal cream glucosamine-chondroitin 250 mg-200 2 tab PO ONCE tab 02/26/18 05/24/18 History mg tablet lactobacillus combination no.9 4 4,000 mmu cells PO ONCE 02/26/18 05/24/18 History billion cell capsule lansoprazole 30 mg capsule,delayed 30 mg PO ONCE cap 02/26/18 05/24/18 History release melatonin 5 mg capsule 5 mg PO .bedtime cap 02/26/18 05/24/18 History methenamine hippurate 1 gram tablet 0.5 tab PO BID tab 02/26/18 05/24/18 History multivitamin,ez-guis-ptvsfrdy 1 tab PO ONCE 02/26/18 05/24/18 History tablet Prescriptions/Medication Reconciliation: Continue lansoprazole 30 mg capsule,delayed release 30 mg PO ONCE cap acetaminophen ER 650 mg tablet,extended release 650 mg PO BID tab multivitamin,yl-rqgp-fgmdfkgi tablet 1 tab PO ONCE lactobacillus combination no.9 4 billion cell capsule 4,000 mmu cells PO ONCE melatonin 5 mg capsule 5 mg PO .bedtime cap glucosamine-chondroitin 250 mg-200 mg tablet 2 tab PO ONCE tab methenamine hippurate 1 gram tablet 0.5 tab PO BID tab conjugated estrogens 0.625 mg/gram vaginal cream 1 applic TOPICAL DIRECTED calcium carbonate-vitamin D3 600 mg calcium-200 unit capsule 1 cap PO DAILY RX: Ezetimibe [Zetia] 10 mg PO HS RX: Aspirin [Aspirin 81mg EC Tab] 81 mg PO DAILY RX: Simvastatin [Zocor] 40 mg PO HS RX: Meclizine HCl [Meclizine 25mg Tab] 25 mg PO TIDP PRN PRN Reason: Vertigo RX: Cranberry Conc/C/Bacill Coag [Azo Cranberry Tablet] 2 each PO DAILY RX: Celecoxib 200 mg PO BID
--- NOTE | 2018-05-25 08:42 | Pharmacy Consult Notes ---
[facility] Pharmacy VTE Monitoring - Patient Demographics Admission date: 05/24/18 Report Date: 05/25/18 Time: 08:42 Allergies/Adverse Reactions: Patient Allergies Penicillins Allergy (Intermediate, Verified 05/24/18 14:01) I-HIVES/RASH Height: 1.57 m Weight: 87.543 kg Patient Problems: Current Active Problems Precordial chest pain (Acute) - VTE Risk Labs: VTE Related Lab Results Hgb 12.6 g/dL (12.2-16.2) 05/24/18 14:10 Hct 35.7 % (37.0-47.0) L 05/24/18 14:10 Plt Count 189 K/mm3 (142-424) 05/24/18 14:10 BUN 33 mg/dL (7-18) H 05/24/18 14:10 Creatinine 1.31 mg/dL (0.55-1.02) H 05/24/18 14:10 Estimated Creat Clear 46 mL/min (0-300) 05/24/18 14:10 Was VTE Risk Assessment Performed: Yes VTE Score: 4 VTE Risk Level: Low Risk - Prophylaxis VTE Prophylaxis Ordered?: Yes Types of VTE Prophylaxis: TEDS Knee High Location of Applied Device: Bilateral Lower Extremeties - VTE Diagnosis Confirmed Treatment or plan recommended: Continue Current Treatment
== END 2018-05-25 12:45 | disposition home or self-care (01) ==
LOC: ER 13:53 → 2ND 13:53
PROVIDERS: ADMIT Family Medicine; ATTEND Family Medicine

== ENCOUNTER → 2018-12-29 13:54 | Outpatient (POV) | payer MEDICARE, SELFPAY | PROVIDERS: Visit Provider Dermatology | DX: Z00.00 Encounter for general adult medical examination without abnormal findings (principal) ==

== ENCOUNTER → 2020-02-18 14:13 | Outpatient (CLI) | payer MEDICARE, SELFPAY ==
--- NOTE | 2020-02-18 14:44 | XR_ITS ---
PROCEDURE: XR HIP LT 2-3V W/PELVIS CLINICAL INDICATION: BURSITIS OF LT HIP Left hip pain COMPARISON: [id number] HIP RT 2-3V W/PELVIS IF PERFOR from 07/23/2017 FINDINGS: Moderate osteoarthritic changes are present involving the left hip. No acute fracture or dislocation. Bony hypertrophy is present at the greater trochanter. There has been a prior total right hip replacement. IMPRESSION: Moderate osteoarthritis of the left hip Dictated by: Masoud Woody MD 02/18/2020 15:00 Electronically signed by Masoud Woody MD in [place] 02/18/2020 15:00
== END ==
PROVIDERS: PCP Family Medicine; Visit Provider Nurse Practitioner Family
DX: M70.62 Trochanteric bursitis, left hip (principal); S76.012D Strain of muscle, fascia and tendon of left hip, subsequent encounter
CPT/HCPCS: 73502

== ENCOUNTER 2020-03-30 09:00 | Outpatient (RCR) | payer MEDICARE, SELFPAY | END 2020-03-30 09:05 | disposition home or self-care (01) | LOC: PT 09:00 | PROVIDERS: PCP Family Medicine; Visit Provider Nurse Practitioner Family | DX: M70.62 Trochanteric bursitis, left hip (principal) | CPT/HCPCS: 97010; 97014; 97033; 97035; 97110; 97140; 97163; G0283 ==

== ENCOUNTER → 2020-07-17 10:09 | Outpatient (CLI) | payer MEDICARE, SELFPAY ==
[2020-07-17 12:04] LABS: Coronavirus 19 IgG Antibody Negative (Negative); Coronavirus 19 IgM Antibody Negative (Negative)
== END ==
PROVIDERS: Visit Provider Ophthalmology
DX: Z01.818 Encounter for other preprocedural examination (principal)
CPT/HCPCS: 36415; 86328

== ENCOUNTER 2020-07-18 08:34 | Day surgery (SDC) | payer MEDICARE, SELFPAY ==
[2020-07-12 10:01] VITALS: BMI 32.7
[2020-07-18 09:34] VITALS: BP 122/76; PULSE 82; RESP 20; TEMP 36.2; O2SAT 99
[2020-07-18 11:15] VITALS: BP 125/65; PULSE 72; RESP 18; TEMP 36.2; O2SAT 97
== END 2020-07-18 11:20 | disposition home or self-care (01) ==
LOC: OUTP 08:36
PROVIDERS: PCP Family Medicine; Visit Provider Ophthalmology
PROC: (CPT 66821; principal; 2020-07-18 09:30)
DX: H26.491 Other secondary cataract, right eye (principal); E78.5 Hyperlipidemia, unspecified; I10 Essential (primary) hypertension; Z88.0 Allergy status to penicillin; Z79.82 Long term (current) use of aspirin; Z79.899 Other long term (current) drug therapy
CPT/HCPCS: 66821

== ENCOUNTER → 2020-07-20 16:18 | Outpatient (CLI) | payer MEDICARE, SELFPAY | PROVIDERS: Visit Provider Nurse Practitioner Obstetrics & Gynecology | DX: N39.0 Urinary tract infection, site not specified (principal) | CPT/HCPCS: 87086; 87088; 87186 ==

== ENCOUNTER → 2020-10-04 09:57 | Outpatient (CLI) | payer MEDICARE, SELFPAY ==
--- NOTE | 2020-10-04 10:01 | XR_ITS ---
PROCEDURE: XR HIP LT 2-3V W/PELVIS XR HIP RT 2-3V W/PELVIS Referring Doctor: Jorge Parker Patient Age:85Y CLINICAL INDICATION: left hip pain Left hip pain since February 2020 no injury right hip prosthesis COMPARISON: CR [id number] HIP RT 2-3V W/PELVIS IF PERFOR from 07/23/2017 CR XR HIP LT 2-3V W/PELVIS from 02/18/2020 CR XR HIP LT 2-3V W/PELVIS from 10/04/2020 Right hip FINDINGS: Right hip.: AP and cross-table lateral view Right total hip arthroplasty. No fracture nor dislocation evident. The prosthetic components appear to be stable and well seated. No evidence of fracture or loosening at the medullary stem. The acetabular cup component is secured by for screws. Left hip: AP and frog-leg view Progressively severe arthritic changes left hip with progression evident even since February 2020. Additional sclerosis and narrowing at the superior joint space. Progressive subchondral cystic changes including a large 2 cm vague degenerative/subchondral cyst I believe now has become apparent at the superior femoral head. Of there is also suggestion of minor mild contour irregularity at the superior base of femoral head related progressive degenerative changes on today's frog-leg view. AP pelvis. Remainder osseous pelvis appears stable and otherwise unchanged. Iliac bone, pubic symphysis, sacrum SI joints stable and satisfactory. Degenerative changes lower L-spine noted IMPRESSION: 1.. Left hip-progressively severe arthritic changes at the left hip;, progression evident since February 2020 2.. Right hip-stable right hip LUIS. No fracture or loosening. 3. Remainder of osseous pelvis stable Dictated by: Tashi Bentley MD 10/09/2020 09:29 Tashi Bentley MD in [place] 10/09/2020 09:50
== END ==
PROVIDERS: PCP Family Medicine; Visit Provider Orthopaedic Surgery
DX: M25.552 Pain in left hip (principal); M25.551 Pain in right hip
CPT/HCPCS: 73502

== ENCOUNTER → 2021-04-04 09:02 | Outpatient (CLI) | payer MEDICARE, SELFPAY ==
--- NOTE | 2021-04-04 09:09 | XR_ITS ---
PROCEDURE: XR HIP LT 2-3V W/PELVIS CLINICAL INDICATION: left hip pain COMPARISON: CR XR HIP LT 2-3V W/PELVIS from 10/04/2020 FINDINGS: There has been interval collapse of the left femoral head superiorly with associated severe osteoarthritic changes the hip joint. There is fracture of the lateral aspect of the acetabulum which mostly represents a prominent spur. There is widening of the left hip joint space inferiorly and minimal subluxation of the femoral head laterally. The acetabular roof rests upon the compressed aspect of the femoral head superiorly. Subchondral cystic changes are present involving the femoral head. Total right hip prosthesis is in place. There are severe degenerative changes in the lumbar spine. IMPRESSION: Concave deformity involves the superior aspect of the left femoral head consistent with cortical collapse with associated acetabular lip fracture and severe osteoarthritis of the left hip with mild lateral subluxation of the femoral head and prominent subchondral cystic changes of the femoral head Dictated by: Masoud Woody MD 04/04/2021 11:53 Masoud Woody MD in [place] 04/04/2021 11:53
== END ==
PROVIDERS: PCP Family Medicine; Visit Provider Orthopaedic Surgery
DX: M16.12 Unilateral primary osteoarthritis, left hip (principal)
CPT/HCPCS: 73502

== ENCOUNTER → 2021-04-06 12:30 | Outpatient (CLI) | payer MEDICARE, SELFPAY ==
--- NOTE | 2021-04-06 12:37 | XR_ITS ---
PROCEDURE: XR CHEST 2V CLINICAL HISTORY: PRE-OP Hypertension COMPARISON: CR CXR CHEST(2 VIEWS-NOT PORTABLE) from 07/17/2016 CR CXR2V XR chest 2V from 10/18/2017 CR CXR1VP XR chest portable from 05/24/2018 FINDINGS: The cardiomediastinal silhouette and pulmonary vascularity are within normal limits. The lungs are clear without infiltrates, suspicious nodules, or pleural effusions. There is scattered small bilateral nodular opacities which may be due to granulomas. No lobar consolidation or collapse. There are degenerative changes in the thoracic with apparent fusion T9 and T10 IMPRESSION: No change with no acute finding Dictated by: Masoud Woody MD 04/06/2021 13:36 Masoud Woody MD in [place] 04/06/2021 13:36
== END ==
PROVIDERS: PCP Family Medicine; Visit Provider Family Medicine
DX: Z01.818 Encounter for other preprocedural examination (principal)
CPT/HCPCS: 71046

== ENCOUNTER → 2021-04-18 11:39 | Outpatient (CLI) | payer MEDICARE, SELFPAY ==
--- NOTE | 2021-04-18 11:40 | CT_ITS ---
PROCEDURE: CT HIP LT WO CON CLINICAL HISTORY: left hip pain; preop for LUIS COMPARISON: CR XR HIP LT 2-3V W/PELVIS from 02/18/2020 CR XR HIP LT 2-3V W/PELVIS from 04/04/2021 TECHNIQUE: Axial images obtained with sagittal and coronal reformats. All CT scans at the facility use one or more dose reduction, viz: automated exposure control, ma/kV adjustment per patient size (including targeted exams where dose is matched to indication, i.e. head), or iterative reconstruction technique. FINDINGS: There is loss of joint space of the left hip with prominent subchondral cystic changes and flattening of the left femoral head. The subchondral cystic changes involve both the acetabulum and the femoral head. There is an area of discontinuity along the anterior aspect of the acetabulum suggesting a nondisplaced fracture as seen on series 3, image 35 and series 601, image 26. The superior wall of the acetabulum is thinned at this region. No femoral neck fracture apparent. There is a medium-sized tib joint effusion. Along the superior aspect of the acetabulum laterally there is a small separate bony fragment triangular-shaped in nature measuring 9 mm consistent with fracture of a lateral acetabular osteophyte with mild separation of the fracture fragment laterally by proximally 6 mm. The femur is subluxed laterally by approximately 7 mm. There is faint ossification along the inferior aspect of the hip joint. There is a faint area of calcification measuring 2.7 by 1.4 cm lying along the junction of the femur neck and proximal femur medially and anteriorly and may represent a loose body versus periarticular ossification. 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 There does appear to be a nondisplaced fracture of the acetabular roof medially and anteriorly Faint calcification within the hip joint inferiorly with a more defined area of calcification along the inferior aspect of the femoral neck and proximal femur which may be due to a loose body Dictated by: Masoud Woody MD 04/18/2021 12:40 Masoud Woody MD in [place] 04/18/2021 12:40
[2021-04-18 14:34] LABS: Microscopic, Urine URINE MICROSCOPIC (MICROSCOPIC)
[2021-04-18 14:59] LABS: Appearance,Urine SL CLOUDY (Clear); Bilirubin,Urine Negative (Negative); Blood, Urine Negative (Negative); Color,Urine YELLOW (Yellow); Glucose,Urine (UA) Negative (Negative); Ketones,Urine Negative (Negative); Leukocyte Esterase,Urine Negative (Negative); Nitrate,Urine Negative (Negative); PH,Urine 5.5 (5.0-8.5); Protein,Urine Negative (Negative); Urobilinogen,Urine 0.2 EU/dl (0.2)
[2021-04-18 15:20] LABS: Bacteria,Urine Trace /lpf
== END ==
PROVIDERS: PCP Family Medicine; Visit Provider Orthopaedic Surgery
DX: M16.12 Unilateral primary osteoarthritis, left hip (principal)
CPT/HCPCS: 73700; 81001

== ENCOUNTER → 2021-04-18 14:31 | Outpatient (CLI) | payer MEDICARE, SELFPAY | PROVIDERS: Visit Provider Orthopaedic Surgery | DX: N39.0 Urinary tract infection, site not specified (principal) | CPT/HCPCS: 81001 ==

== ENCOUNTER → 2021-04-20 13:26 | Outpatient (CLI) | payer MEDICARE, SELFPAY | PROVIDERS: Visit Provider Orthopaedic Surgery | DX: Z01.818 Encounter for other preprocedural examination (principal); Z20.822 Contact with and (suspected) exposure to COVID-19 | CPT/HCPCS: 36415; 86850; U0003 ==

== ENCOUNTER 2021-04-23 06:24 | Observation (INO) | payer MEDICARE, SELFPAY ==
--- NOTE | 2021-04-19 13:26 | SW/DCPLANNER ---
Addendum entered by [facility] 04/25/21 11:14: Jenny with [facility] has stated they can accept this patient and precert has been started. Addendum entered by [facility] 04/25/21 10:03: Kimberlee walker/ [facility] informed me this AM that the precert has been cancelled and they can no longer accept this patient to their facility due to bed availability at facility. I spoke with this patient regarding situation and she is agreeable to fax patient information to [facility]. Jenny with [facility] stated that they do have beds available and are in network with patient insurance. I will follow up with: patient, MD and [facility]. Addendum entered by [facility] 04/24/21 13:05: Patient is agreeable to [facility] at time of discharge and understands no visitors are allowed at this time. Currently waiting to hear back from pre-cert. Kimberlee has stated that additional COVID swab is needed prior to discharge. Addendum entered by [facility] 04/24/21 12:06: Kimberlee with [facility] stated that precert has been started for this patient: I will inform MD and patient of this plan. Addendum entered by [facility] 04/24/21 10:17: Updated patient information has been faxed to Kimberlee at [facility]. Addendum entered by [facility] 04/23/21 13:57: Marybel with [facility] has stated that they will have one bed open tomorrow. I will speak with patient and fax information once surgery is complete. Discharge date is unknown at this time. Original Note: CALLED PATIENT TODAY TO SPEAK WITH HER ABOUT HER UPCOMING SURGERY THAT IS SCHEDULED FOR 04/[address] BARRON.. PATIENT STATED SHE HAD HER OTHER HIP DONE A FEW YEARS AGO AND WENT TO [facility] FOR REHAB SERVICES.. SHE WISHES TO GO THERE AGAIN, I EXPLAINED TO HER WE CAN CERTAINLY EXPLORE THAT FOR HER BUT IF THEY DON'T HAVE A BED WE WILL NEED A 2ND CHOICE TO LOOK INTO FOR HER.. I ASSURED HER SOMEONE WILL BE AVAILABLE TO TALK WITH HER ABOUT BED AVAILABILITY WHEN SHE IS ADMITTED HERE.. I WILL MENTION TO TAY ABOUT HER AND SEE IF SHE THINKS SHE WILL HAVE SOMETHING NEXT WEEK FOR THIS PATIENT.. I DID MENTION TO FLOR ABOUT THE [facility] THAT IS OWNED BY THE SAME COMPANY [employer] AND SHE SAID SHE REALLY DIDN'T WANT TO GO TO [place]..
[2021-04-20 08:05] VITALS: BMI 29.7
[2021-04-23] VITALS (22 sets, daily range): BP systolic 87–147; BP diastolic 45–86; PULSE 80–96; RESP 16–20; TEMP 36.6–43; O2SAT 95–100; BMI 29.5
--- NOTE | 2021-04-23 13:00 | XR_ITS ---
PROCEDURE: XR HIP LT 2-3V W/PELVIS CLINICAL INDICATION: surgery Postop COMPARISON: CR XR HIP LT 2-3V W/PELVIS from 04/04/2021 FINDINGS: Status post total left hip replacement with good alignment. Postsurgical gas, drains, and antibiotic beads present. No acute fracture or dislocation IMPRESSION: Good alignment status post total left hip replacement Dictated by: Masoud Woody MD 04/23/2021 14:22 Masoud Woody MD in [place] 04/23/2021 14:22
[2021-04-23 13:42] LABS: Microscopic,Cath URINE MICROSCOPIC (MICROSCOPIC)
[2021-04-23 13:49] LABS: Appearance,Urine/Cath CLEAR (Clear); Bilirubin,Cath Negative (Negative); Blood, Urine/Cath Negative (Negative); Color,Urine/Cath YELLOW (Yellow); Glucose,Urine/Cath (UA) Negative (Negative); Ketones,Urine/Cath Negative (Negative); Leukocyte Esterase,Cath Negative (Negative); Nitrate,Cath Negative (Negative); Protein,Urine/Cath Negative (Negative); Urobilinogen,Cath 0.2 EU/dl (0.2)
[2021-04-23 14:17] LABS: Bacteria,Urine/Cath TRACE /lpf; WBC,Urine/Cath Occasional #/hpf (0-3)
--- NOTE | 2021-04-23 14:45 | HMH.ANESCL ---
[facility] Anesthesia Checklist - Patient Identification Patient Identification: Arm Band, Verbal (Name & ) - Structural Data Admitted From: Home Planned Operative Procedure/s: left aditya Consent for Planned Operative Procedure(s) Verified: Yes Verified Documents: Surgical Consent, History and Physical - NPO Status Verified Time NPO: 00:00 - Chart Verification Results Verified: CBC, BMP - Additional verifications Patient : No Anesthesia Reactions: No Hx Blood Transfusions: No Blood Transfusion Reaction: No - Cardiovascular Assessment Heart Sounds: S1 & S2 Pulse Strength: Baseline Pulse Rhythm: Regular - Airway Assessment C-Spine Mobility Assessed: Yes TMJ Mobility Assessed: Yes Dentition: Good Dentition - Neurological Assessment Level of Consciousness: Awake, Alert, Appropriate Hx Seizures: No Numbness or tingling in extremities: No - Anesthesia Plan Anesthesia Risk discussed: Yes Anesthesia Plan: Verified ASA Class: II Anesthesia Type: General [facility] History I have reviewed the patient's past medical history: Yes Medical History: Reports:: Hyperlipidemia, Hypertension Denies:: Cancer, Coronary Artery Disease, Diabetes Mellitus Type 1, Diabetes Mellitus Type 2, Heart Murmur, Internal Pacemaker, MRSA, Seizures *Have you ever received a pneumonia vaccine?: No *Have you received a flu vaccine this season?: No Other Medical History: Reports: Arthritis, Cataracts, Sinus Problems. Denies: Blood Transfusion Reaction Anesthesia experience/problems:: none Laterality Cases: Right: Total Hip Replacement Other Surgeries: Yes: Colonoscopy, Tubal Ligation. No: Pacemaker Amputation: No Fractures: No - *Social History Last grade of school completed: Advanced degree Smoking Status: Never smoker Alcohol Intake: never Alcohol Intake Frequency:: other Substance Use Type: denies use *Occupational Status:: retired Housing: house Household Members: none *Travel in the last 8 weeks: None Family Hx:: Cancer, Heart Attack, Hypertension
--- NOTE | 2021-04-23 14:46 | P.PN_ITS ---
[facility] Anesthesia Record Part I Intake, IV Amount: 1,200 Estimated blood loss (mL): 300 Urine output (mL): 250 Blood Products used (#): none Blood Pressure: 112/65 SaO2: 99 Pulse Rate: 80 Respiratory Rate: 16 Temperature: 97.8 F Patient is:: Drowsy Stable to PACU at:: 12:53
--- NOTE | 2021-04-23 14:47 | HMH.ANESII ---
[facility] Anesthesia Record Part II Discharge Time: 13:03 Destination: Medical Surgical Department PACU nurse assessment reviewed?: Yes Patient Condition:: Good Anesthesia Complications:: None Swallowing reflex intact?: Yes Cyanosis?: No Blood Pressure: 115/70 Pulse Rate: 85 Temperature: 98 F Mental Status: Alert & Oriented Pain level:: 0 Nausea and/or vomitting:: None Intake, IV Amount: 30
--- NOTE | 2021-04-23 15:07 | HMH.PHACONS ---
- Pharmacy Consult Date: 04/23/21 Time: 15:07 Referring provider: DR. BARRON Reason for Consult:: VANCOMYCIN DOSING Allergies and ADEs:: Allergies Allergy/AdvReac Type Severity Reaction Status Date / Time Penicillins Allergy Intermediate I-HIVES/FLAQUITO Verified 04/18/21 13:32 H morphine AdvReac Mild Unknown Verified 04/20/21 08:10 allergy reaction Home Medications:: Home Medications Medication Instructions Recorded Confirmed Type Aspirin [Aspirin 81mg EC Tab] 81 mg PO DAILY 10/19/17 04/20/21 History Cranberry Conc/C/Bacill Coag [Azo 2 each PO DAILY 10/19/17 04/20/21 History Cranberry Tablet] Ezetimibe [Zetia] 10 mg PO HS 10/19/17 04/20/21 History Meclizine HCl [Meclizine 25mg Tab] 25 mg PO TIDP PRN 10/19/17 04/20/21 History Simvastatin [Zocor 40mg] 40 mg PO HS 10/19/17 04/20/21 History acetaminophen 650 mg 1,300 mg PO BID tab 02/26/18 04/23/21 History tablet,extended release calcium carbonate-vitamin D3 600 1 cap PO DAILY 02/26/18 04/20/21 History mg calcium-200 unit capsule conjugated estrogens 0.625 mg/gram 1 applic TP DIRECTED 02/26/18 04/23/21 History vaginal cream glucosamine-chondroitin 250 mg-200 2 tab PO DAILY tab 02/26/18 04/23/21 History mg tablet lansoprazole 30 mg capsule,delayed 30 mg PO DAILY cap 02/26/18 04/23/21 History release melatonin 5 mg capsule 5 mg PO HS cap 02/26/18 04/23/21 History methenamine hippurate 1 gram tablet 0.5 tab PO BID tab 02/26/18 04/20/21 History multivitamin,ob-fziw-alwobolx 1 tab PO DAILY 02/26/18 04/23/21 History celecoxib 200 mg capsule 200 mg PO DAILY cap 07/20/20 04/20/21 History Tramadol HCl [Tramadol 50mg 50 mg PO Q6HP PRN 04/20/21 04/23/21 History Tab] Height: 1.6 m Weight: 76.204 kg Laboratory Results:: Laboratory Results - last 24 hr 08/16/21 06:32: Blood Type AB Negative, Antibody Screen Negative 04/23/21 08:10: Urine Color Yellow, Urine Appearance Clear, Urine pH 6.0, Ur Specific Niles 1.020, Urine Protein Negative, Urine Glucose (UA) Negative, Urine Ketones Negative, Urine Blood Negative, Urine Nitrate Negative, Urine Bilirubin Negative, Urine Urobilinogen 0.2, Ur Leukocyte Esterase Negative, Urine RBC None, Urine WBC Occasional, Ur Squamous Epith Cells None, Urine Bacteria Trace Medical History: Reports:: Hyperlipidemia, Hypertension Denies:: Cancer, Coronary Artery Disease, Diabetes Mellitus Type 1, Diabetes Mellitus Type 2, Heart Murmur, Internal Pacemaker, MRSA, Seizures Assessment and Plan - Assessment and plan all Dx Assessment and Plan for all problems:: Age: 85 yo Serum creatinine: 1.5 mg/dL Height: 63.0 Inches Weight (kg): 76 Assessment: IBW (kg): 52.40 Dosing wt(kg): 76 Estimated Creatinine clearance (ml/min): 23.5 CRCL method: Cockcroft and Gault using ibw(default). Drug selected: Vancomycin Loading dose (mg): 0 Vd (liters): 60.8 (factor used: 0.8 L/kg) Feng (hr-1): 0.024 Half life (hrs): 28.88 Recommended dose: 1250 mg Interval: 36 hrs Infusion time (hrs): 2.0 Predicted peak (mcg/mL): 34.7 Predicted trough (mcg/mL): 15.34 Total body weight is being used for vancomycin dosing. Recommendations: Give Vancomycin 1250 mg q 36 hrs with an expected Cpeak of 34.7 mcg/ml and an expected Ctrough of 15.34 mcg/ml ----Vanco only - ignore for aminoglycosides----- CLvanco= 1.46 L/hr AUC 0-24 /NELLY Data: NELLY 0.5 mcg/mL: AUC/NELLY: 1141.6 NELLY 1.0 mcg/mL: AUC/NELLY: 570.8 --------- NELLY 1.5 mcg/mL: AUC/NELLY: 380.5 NELLY 2.0 mcg/mL: AUC/NELLY: 285.4 Thank you for the consult, will continue to follow.
--- NOTE | 2021-04-23 16:01 | HMH.PHAVTE ---
[facility] Pharmacy VTE Monitoring - Patient Demographics Admission date: 04/23/21 Report Date: 04/23/21 Time: 16:01 Allergies/Adverse Reactions: Patient Allergies Penicillins Allergy (Intermediate, Verified 04/18/21 13:32) I-HIVES/RASH morphine Adverse Reaction (Mild, Verified 04/20/21 08:10) Unknown allergy reaction Height: 1.6 m Weight: 75.75 kg - VTE Risk VTE Score: 3 VTE Risk Level: Low Risk - Prophylaxis VTE Prophylaxis Ordered?: Yes Types of VTE Prophylaxis: IPCS Thigh High, Pharmacological Location of Applied Device: Bilateral Lower Extremeties Pharmacologic Type: Other (XARELTO)
--- NOTE | 2021-04-23 18:32 | HMH.ORTHHP ---
*Admission Date: 04/23/21 *Reason for consult:: S/p total hip arthroplasty, left *History of present illness: Patient is an 85-year-old female with advanced degenerative arthritis of her left hip unresponsive to conservative management. She is admitted to hospital following a difficult but uncomplicated primary left total hip arthroplasty today. She has had left hip pain for over a year which is gradually gotten worse with more rapid deterioration over the last few months. She localizes the pain to anterior and lateral aspect of the left hip with radiation into the thigh and left knee. She previously had a successful right total hip arthroplasty about 4 and half years ago. Her walking distance has progressively decreased and she is more or less dependent on a walker. She states walking, twisting, turning and standing for long periods aggravate his pain. She reports night pain and sleep disturbance. She reports difficulty with activities of daily living. She also reports the left side giving out frequently and is at risk of falls and injuring herself. She says she can barely walk a few feet without discomfort. No history of any previous left hip surgery. No history of any neurological deficits distally. A left total hip arthroplasty is indicated to reduce the risk of falls, improve the pain, mobility and quality of life. The surgical and nonsurgical alternatives were discussed in detail with the patient as well as the risks and benefits of the surgery. Her medical history includes hypertension, hyperlipidemia and arthirits. She lives by herself. Please refer to my office note for full details. [facility] History I have reviewed the patient's past medical history: Yes Medical History: Reports:: Hyperlipidemia, Hypertension Denies:: Cancer, Coronary Artery Disease, Diabetes Mellitus Type 1, Diabetes Mellitus Type 2, Heart Murmur, Internal Pacemaker, MRSA, Seizures *Have you ever received a pneumonia vaccine?: Yes *Have you received a flu vaccine this season?: Yes Other Medical History: Reports: Arthritis, Cataracts, Sinus Problems. Denies: Blood Transfusion Reaction Anesthesia experience/problems:: none Laterality Cases: Right: Total Hip Replacement Other Surgeries: Yes: Colonoscopy, Tubal Ligation. No: Pacemaker Amputation: No Fractures: No - *Social History Last grade of school completed: Advanced degree Smoking Status: Never smoker Alcohol Intake: never Alcohol Intake Frequency:: other Substance Use Type: denies use *Occupational Status:: retired Housing: house Household Members: none *Travel in the last 8 weeks: None Family Hx:: Cancer, Heart Attack, Hypertension Review of Systems - Review of Systems Review of systems:: pertinent systems reviewed and negative unless documented below - Constitutional Denies chills, Denies fever(s) - Eyes Denies change in vision - ENT Denies abnormal hearing, Denies change in voice - *Cardiovascular Denies chest pain, Denies shortness of breath - *Respiratory Denies chest congestion, Denies cough, Denies shortness of breath - *Gastrointestinal Denies abdominal pain, Denies change in bowel habits - *Musculoskeletal Reports abnormal walking, Reports joint pain, Reports limited joint movement - *Neurologic Reports abnormal walking, Denies seizure-like activity, Denies tingling/numbness/burning sensations - Endocrine Denies cold intolerance, Denies heat intolerance - Hematologic/Lymphatic Denies easy bleeding, Denies easy bruising Meds Home Medications Medication Instructions Recorded Confirmed Type RX: Aspirin [Aspirin 81mg EC 81 mg PO DAILY 10/19/17 04/20/21 History Tab] RX: Cranberry Conc/C/Bacill Coag 2 each PO DAILY 10/19/17 04/20/21 History [Azo Cranberry Tablet] RX: Ezetimibe [Zetia] 10 mg PO HS 10/19/17 04/20/21 History RX: Meclizine HCl [Meclizine 25mg 25 mg PO TIDP PRN 10/19/17 04/20/21 History Tab] RX: Simvastatin [Zocor 40mg] 40 mg PO HS
--- NOTE | 2021-04-23 18:48 | HMH.OPNOTE ---
Date of procedure: 04/23/21 Pre-op Diagnosis:: Advanced degenerative arthritis, left hip Post-op Diagnosis:: Same Procedure performed:: Uncemented total hip arthroplasty, left Surgeon:: Jorge Parker MD Tobacco Educator(s):: Jenny Major WAGE ANALYST:: Other (Jean Sheffield) Anesthesia: GETA Estimated blood loss (mL): 300 Clinical Note:: Patient is an 85-year-old female with end-stage osteoarthritis of the LEFT hip unresponsive to conservative management. The arthritis is causing severe pain and significant disability and has not responded well to conservative management. Her mobility and quality of life is severely impacted. The pain is also affecting her lifestyle, activities of daily living and significantly impacting her sleep. Also she is at a high risk of falls from the arthritis. Therefore a total hip arthroplasty is indicated to relieve pain and to reduce the disability and risk of falls. Please refer to my office note for full details. Operative findings:: Preoperative examination and x-ray findings were consistent with the above diagnosis. Intraoperatively, end-stage osteoarthritis of the hip joint is noted. The femoral head was grossly arthritic and misshapen and osteophytes were noted on both the acetabular and the femoral side. The anterior acetabular wall was thin but intact. The capsule/soft tissues are contracted and very tight. The capsule was thickened and range of motion was markedly decreased. The bone quality is good. Overall it was a difficult procedure given the degree of arthritis and stiffness of the hip joint. Operative note:: On the day of the procedure the patient was met in the preoperative area and the patient was positively identified. A physical examination was performed and documented. The operative site was appropriately marked and initialed by me. I again reviewed the diagnosis, natural history and management options in detail including both nonsurgical and surgical. We discussed the proposed surgery, risks and benefits and alternatives in detail. The complications discussed include but are not limited to infection, bleeding, injury to nerves, blood vessels and tendons, DVT and PE, fracture, limb length inequality, dislocation, implant malpositioning, implant failure, squeaking, loosening, acetabular wear, osteolysis, periprosthetic femur fracture, heterotopic ossification, abductor weakness and limp, incomplete relief of pain, incomplete recovery of function, chronic pain, likely need for further surgery in future including revision, anesthetic complications including heart attack, stroke and even . We also discussed the postoperative recovery and rehabilitation. Patient verbalized a good understanding and wished to proceed with the proposed surgery. Patient understood the risks, agreed to proceed with surgery, signed the consent form and no guarantees or assurances were given or implied. The patient was brought to the operating room and a spinal anesthesia was administered by the social work supervisor. The patient was then positioned in the RIGHT lateral decubitus position with the LEFT hip facing up. We used Wixon hip positioner for this. All the bony prominences were appropriately padded. The LEFT hip was then prepped with isopropyl alcohol followed by chlorhexidine and draped in the usual sterile fashion. The entire operative team wore isolation suits and the Operating Room traffic was controlled. The skin incision was marked for a posterior approach to the hip joint. The perineum and the operative site were sealed off with Ioban drape. A preprocedure timeout was performed as per hospital protocol identifying the patient, correct surgery and correct site. Administration of prophylactic antibiotics (IV Ancef and vancomycin) was confirmed with the social work supervisor. Before completion of the procedure 1 more gram of IV Ancef was administered as the operating time was over 2 hours. We have also administered IV tranexamic acid just before the incisio
--- NOTE | 2021-04-23 21:40 | PC.NURSE ---
1944- Gave report to maggy, OB at this time
[2021-04-24] VITALS (9 sets, daily range): BP systolic 104–128; BP diastolic 58–74; PULSE 65–101; RESP 17–18; TEMP 36.6–38.6; O2SAT 95–99
--- NOTE | 2021-04-24 01:18 | PC.NURSE ---
LATE ENTRY: 2044 INCENTIVE SPIROMETER GIVEN AND EXPLAINED TO PT. PT V/U AND DEMONSTRATED PROPER USE.
--- NOTE | 2021-04-24 01:20 | PC.NURSE ---
ICE PACK REFILLED AND REPLACED TO LEFT HIP. XEROFORM DRESSING REMAINS IN PLACE AND CDI. AYLA DRAIN DRAINING MINIMAL AMOUNT OF SEROSANGINOUS FLUID. PT MEDICATED PER EMAR FOR HEADACHE AND BACK PAIN 01/15. WILL REASSESS.
--- NOTE | 2021-04-24 04:31 | PC.NURSE ---
PT IS SLEEPING WITH NO DISTRESS NOTED. F/C DRAINING CLEAR YELLOW URINE TO BEDSIDE. PT HAS TOLERATED WEDGE WELL THIS SHIFT. XEROFORM DRESSING REMAINS IN PLACE AND IS CDI. ICE PACK REMAINS IN PLACE ORDERED WELL SCUDD TO RLE. VS REMAIN STABLE. WILL CONTINUE TO MONITOR.
[2021-04-24 06:14] LABS: Basophils % 0.2 % (0.1-2.0); Hematocrit 26.4 % (37.0-47.0); Hemoglobin 8.5 g/dL (12.2-16.2); Mean Corpuscular HGB Conc 32.2 g/dL (31.8-35.4); Mean Corpuscular Hemoglobin 30.7 pg (27.0-31.2); Mean Corpuscular Volume 95.2 fl (81-99); Mean Platelet Volume 8.2 fl (7.4-10.4); Monocytes # 0.7 K/mm3 (0.1-1.0); Monocytes % 5.9 % (1.7-9.3); Neutrophils # 9.7 K/mm3 (1.8-7.8); Neutrophils % 84.9 % (37.0-80.0); Platelet Count 212 K/mm3 (142-424); Red Blood Count 2.77 M/mm3 (4.20-5.40); Red Cell Distribution Width 13.1 % (11.5-17.5); White Blood Count 11.4 K/mm3 (4.8-10.8)
[2021-04-24 06:27] LABS: Chloride 104 mmol/L (98-107); Potassium 4.7 mmoL/L (3.5-5.1); Sodium 132 mmol/L (136-145)
[2021-04-24 06:30] LABS: Anion Gap 10.7 mEq/L (5-15); Blood Urea Nitrogen 32 mg/dl (7-17); Carbon Dioxide 22 mmol/L (22.0-30.0); Creatinine Clearance Estimated 51 mL/min (50-200); Estimated Glomerular Filt Rate 53 ml/min (>60); GFR (African American) 64 ML/MIN (>60)
[2021-04-24 06:31] LABS: Calcium 8.3 mg/dl (8.4-10.2); Glucose 124 mg/dl (74-100)
--- NOTE | 2021-04-24 07:08 | HMH.CONS ---
*Admission Date: 04/23/21 *Reason for consult:: Continuity of care *History of present illness: Patient is an 85-year-old female with advanced degenerative arthritis of her left hip underwent left hip replacement yesterday by Dr. Parker. I have been consulted as her primary care physician. Patient has medical history of hypertension and hyperlipidemia [facility] History I have reviewed the patient's past medical history: Yes Medical History: Reports:: Hyperlipidemia, Hypertension Denies:: Cancer, Coronary Artery Disease, Diabetes Mellitus Type 1, Diabetes Mellitus Type 2, Heart Murmur, Internal Pacemaker, MRSA, Seizures *Have you ever received a pneumonia vaccine?: Yes *Have you received a flu vaccine this season?: Yes Other Medical History: Reports: Arthritis, Cataracts, Sinus Problems. Denies: Blood Transfusion Reaction Anesthesia experience/problems:: none Laterality Cases: Right: Total Hip Replacement Other Surgeries: Yes: Colonoscopy, Tubal Ligation. No: Pacemaker Amputation: No Fractures: No - *Social History Last grade of school completed: Advanced degree Smoking Status: Never smoker Alcohol Intake: never Alcohol Intake Frequency:: other Substance Use Type: denies use *Occupational Status:: retired Housing: house Household Members: none *Travel in the last 8 weeks: None Family Hx:: Cancer, Heart Attack, Hypertension Review of Systems - Constitutional Denies anorexia, Denies body ache(s), Denies lack of energy - Eyes Denies blurry vision - ENT Denies bleeding gums, Denies ear discharge, Denies lip swelling, Denies sore throat - *Cardiovascular Denies chest pain at rest, Denies shortness of breath with activity - *Respiratory Denies change in phlegm color, Denies chest congestion - *Gastrointestinal Denies abdominal pain, Denies belching, Denies bloating - *Genitourinary Denies abnormal vaginal bleeding, Denies painful urination - *Musculoskeletal Denies abnormal walking, Denies joint pain - Integumentary/Breasts Denies bleeding lesions - *Neurologic Reports abnormal walking, Denies abnormal hearing, Denies seizure-like activity, Denies tingling/numbness/burning sensations - Psychiatric Denies lack of enjoyment Meds Home Medications Medication Instructions Recorded Confirmed Type Aspirin [Aspirin 81mg EC Tab] 81 mg PO DAILY 10/19/17 04/20/21 History Cranberry Conc/C/Bacill Coag [Azo 2 each PO DAILY 10/19/17 04/20/21 History Cranberry Tablet] Ezetimibe [Zetia] 10 mg PO HS 10/19/17 04/20/21 History Meclizine HCl [Meclizine 25mg Tab] 25 mg PO TIDP PRN 10/19/17 04/20/21 History Simvastatin [Zocor 40mg] 40 mg PO HS 10/19/17 04/20/21 History acetaminophen 650 mg 1,300 mg PO BID tab 02/26/18 04/23/21 History tablet,extended release calcium carbonate-vitamin D3 600 1 cap PO DAILY 02/26/18 04/20/21 History mg calcium-200 unit capsule conjugated estrogens 0.625 mg/gram 1 applic TP DIRECTED 02/26/18 04/23/21 History vaginal cream glucosamine-chondroitin 250 mg-200 2 tab PO DAILY tab 02/26/18 04/23/21 History mg tablet lansoprazole 30 mg capsule,delayed 30 mg PO DAILY cap 02/26/18 04/23/21 History release melatonin 5 mg capsule 5 mg PO HS cap 02/26/18 04/23/21 History methenamine hippurate 1 gram tablet 0.5 tab PO BID tab 02/26/18 04/20/21 History multivitamin,yl-uhxk-jcbgjudm 1 tab PO DAILY 02/26/18 04/23/21 History celecoxib 200 mg capsule 200 mg PO DAILY cap 07/20/20 04/20/21 History Tramadol HCl [Tramadol 50mg 50 mg PO Q6HP PRN 04/20/21 04/23/21 History Tab] Allergies Allergy/AdvReac Type Severity Reaction Status Date / Time Penicillins Allergy Intermediate I-HIVES/FLAQUITO Verified 04/18/21 13:32 H morphine AdvReac Mild Unknown Verified 04/20/21 08:10 allergy reaction Exam Vital signs and Labs for Last 24 Hours: Temp Pulse Resp BP Pulse Ox 97.8 F 84 18 108/74 L 98 04/24/21 04:30 04/24/21 04:30 04/24/21 04:30 04/24/21
--- NOTE | 2021-04-24 08:55 | PC.NURSE ---
Pt's daughter is bringing her home meds for her to take.
--- NOTE | 2021-04-24 09:10 | PC.NURSE ---
Lortab 5/325 po given for left hip pain.
--- NOTE | 2021-04-24 09:15 | PC.NURSE ---
PT/OT at bs to see pt.
--- NOTE | 2021-04-24 10:05 | HMH.PTEV ---
Physical Therapy Evaluation Rehab PT IP Evaluation Start: 04/23/21 13:43 Freq: ONCE Status: Active Protocol: Document 04/24/21 09:54 DASH (Rec: 04/24/21 10:05 DASH [id number]) Subjective/History History History Pt is 85 year old female s/p left LUIS. Subjective Subjective Pt reported pain 2/10 this morning. Pt reported she lives alone in one level home and was using a rolling walker prior to surgery. Pt stated she would like to get out of bed to sit in a chair. Rehab PT IP Eval Objective Appearance Patient Behavior Appropriate,Cooperative Patient Orientation Name,Birthday Difficulty following instructions none Speech Pattern Clear,Appropriate,Coherent Ambulation Patient Able to Ambulate Yes Ambulation Observation IP General Gait Pattern Observation Wide Based Gait,Shuffling Step Ambulation Distance (feet) 10 Ambulation Assistive Device Rolling Walker Ambulation Ability Contact Guard/Hand Hold Balance Ability to Arise Able, uses arms to help Sitting Balance Steady, safe Standing Balance Steady, wide stance Dynamic Sitting Balance Ability Good Dynamic Standing Balance Ability Good Transfers Bed Transfer Ability Minimal x 1 (25% assist) Chair Transfer Ability Contact Guard/Hand Hold Sit to Stand Bed Transfer Ability Contact Guard/Hand Hold Sit to Stand Chair Transfer Ability Contact Guard/Hand Hold Pain Left Hip Pain Intensity 2 MMT All Extremities PT MMT WFL Rehab PT IP prob,goals,plan Problems Date of Evaluation: 04/24/21 PT IP Problems Bed Mobility,Transfers,Gait, Balance,Safety Rehab Potential Rehab Potential Good Equipment Needs Assistive Devices Rolling / Wheeled Walker Plan PT Intervention Plan Bed Mobility,Transfers,Gait, Balance,Safety,Therapeutic Exercise PT Plan Frequency BID Duration LOS Discharge Goals Bed Transfer Ability Contact Guard/Hand Hold Sit to Stand Chair Transfer Ability Contact Guard/Hand Hold Ambulation Assistive Device Rolling Walker Ambulation Distance (feet) 25 Discharge Plan PT Discharge Plan Due to pt living alone, pt would benefit from skilled therapy in short term stay at SNF to improve mobility and
--- NOTE | 2021-04-24 10:20 | PC.NURSE ---
Pt remains in recliner chair. Daughter at bs visiting. Pt denies any pain or needs at this time. Bed linens changed and room straightened.
--- NOTE | 2021-04-24 10:26 | HMH.PHAINT ---
MEDICATION RECONCILIATION COMPLETED USING LIST PROVIDED BY PATIENT AND RX BOTTLES.
--- NOTE | 2021-04-24 10:48 | HMH.OTEV ---
OT Inpatient Evaluation Rehab OT IP Evaluation Start: 04/23/21 13:43 Freq: ONCE Status: Complete Protocol: Document 04/24/21 09:56 [facility] (Rec: 04/24/21 10:48 [facility] [id number]) Rehab OT IP Assessment Subjective History Pt oriented x 3 on arrival. Pt agreeable to engage in therapy evaluation. Pt admitted to hospital after having a left total hip arthroplasy on 04/23/21. Pt has a past medical history of Hyperlipidemia, Hypertension. Pt reports prior to surgery she lived at home by herself. She lives in the [facility] where everything is one level and handicap accessible. She does use a walker during ambulation. Pt claims she was independently with all ADLs and IADLs. Subjective I will do my best. Objective Patient Orientation Person,Place,Birthday Upper Extremity Gross ROM WFL Bed Mobility bed mobility-scooting,bed mobility - supine/sit,bed mobility - rolling Assist Level Minimal x 1 (25% assist) Transfer Training Sit/Stand Transfer Assist Level Contact Guard/Hand Hold Chair Transfer Ability Contact Guard/Hand Hold Chair Transfer Technique Sit to/from Ambulatory Chair Transfer Assistive Devices Rolling Walker Rehab OT IP prob,goals,plan Problems Date of Evaluation: 04/24/21 OT IP Problems Bed Mobility,Transfers,Gait, Balance,Self care,Safety Rehab Potential Rehab Potential Good Equipment Needs Assistive Devices Rolling / Wheeled Walker Plan OT intervention Plan Bed Mobility,Transfers,Gait, Balance,Self care,Safety, Therapeutic Exercise OT Plan Frequency BID Duration LOS Discharge Goals Bed Mobility Ability Assistance x1 Sit to Stand Chair Transfer Ability Supervision/Stand by Chair Transfer Ability Supervision/Stand by Chair Transfer Technique Sit to/from Ambulatory Chair Transfer Assistive Devices Rolling Walker Feeding Ability Assist with Tray Set Up Lower Body Dressing Ability Assistance X1 Upper Body Dressing Ability Standby Assistance Bathing Ability Assistance x1 Per
--- NOTE | 2021-04-24 13:29 | PC.NURSE ---
PT/OT here to work with pt again. Pt was able to ambulate across room x1 and is now resting back in bed. Pt's daughter no longer at bs visiting.
--- NOTE | 2021-04-24 16:40 | PC.NURSE ---
No changes to report from previous assessment. Will be d/c'ing Cruz Cath after pt eats dinner. IV will also be saline locked. Pt tolerated regular diet well. Pt is very compliant and tolerant of wedge and having to lie on her back while in bed. Pulses palpable bilat/pedal. No edema noted. Lungs clear, continues to use I/S and is spitting up a minute amt of sputum intermettently. +BS x 4quads. Daughter remains at bs visiting.
--- NOTE | 2021-04-24 20:31 | HMH.ORTHPN ---
Subjective Date: 04/24/21 Time: 16:30 Principal diagnosis: S/p total hip arthroplasty, left Interval history: Patient is status post LEFT total hip arthroplasty post op day #1. Patient is lying down on the bed and says she is doing well. Patient has minimal pain and says it's well-controlled with medication. No history of any nausea or vomiting. No history of any cough, chest pain, shortness of breath or palpitations. Patient says she is eating and drinking well. No history of any distal tingling or numbness. PN: Obj Ex Vital signs: Temp Pulse Resp BP Pulse Ox 97.9 F 101 H 17 125/59 L 95 04/24/21 15:00 04/24/21 15:00 04/24/21 15:00 04/24/21 15:00 04/24/21 15:00 Narrative: Laboratory Results - last 24 hr 04/24/21 05:24: WBC 11.4 H, RBC 2.77 L, Hgb 8.5 L, Hct 26.4 L, MCV 95.2, MCH 30.7, MCHC 32.2, RDW 13.1, Plt Count 212, MPV 8.2, Neut % (Auto) 84.9 H, Lymph % (Auto) 9.0 L, Sharkey % (Auto) 5.9, Eos % (Auto) 0.0 L, Baso % (Auto) 0.2, Neut # (Auto) 9.7 H, Lymph # (Auto) 1.0, Sharkey # (Auto) 0.7, Eos # (Auto) 0.0, Baso # (Auto) 0.0 04/24/21 05:24: Sodium 132 L, Potassium 4.7, Chloride 104, Carbon Dioxide 22, Anion Gap 10.7, BUN 32 H, Creatinine 1.00, Estimated Creat Clear 51, Estimated GFR 53 L, Est GFR ( Amer) 64, Glucose 124 H, Calcium 8.3 L Intake & Output 04/22/21 04/23/21 04/24/21 04/25/21 11:59 11:59 11:59 11:59 Intake Total 2813 / 2813 1200 / 1200 Output Total 515 / 515 1630 / 1630 Balance 2298 / 2298 -430 / -430 Weight 167 lb Exam: General appearance: alert, active, awake, no acute distress Cardiovascular: regular rate & rhythm, normal peripheral pulses Respiratory: No respiratory distress noted, speaks in full sentences ABD: soft and non tender Neuro: alert, awake, oriented x 3 Psych: Appropriate mood and affect Genitourinary: Catheter in situ. On examination of the lower extremities the limb lengths are equal. Thigh and calf are soft and nontender. On examination of the LEFT hip the dressings are clean, dry and intact. The surgical drain is in place and total drainage is about 60 cc since surgery yesterday. Distal pulses are 1+. Distal sensation is intact to light touch throughout. No motor deficits noted distally. - Urinary Catheter Management Cruz Cath placed during this visit: no Progress Note: A&P (1) Primary osteoarthritis of left hip Status: Acute (2) S/P total hip arthroplasty Status: Acute (3) Anemia Status: Chronic Assessment and Plan for All Diagnoses:: I have reviewed the clinical findings and progress with the patient and her daughter. Patient is doing well and reports no problems. Patient is mobilizing well weightbearing as tolerated on the LEFT side with the walker and to continue the same. Continue DVT prophylaxis-recommend DVT prophylaxis for 6 weeks postop. Continue abduction pillow when in bed and continue standard precautions for the posterior approach hip replacement. Discontinue IV fluids and the urinary catheter. Case management looking into discharge planning. Continue medical management as per Dr. Wade.
--- NOTE | 2021-04-24 22:00 | PC.NURSE ---
2144 Dr Jones notified of new onset urinary incontinence, temp of 101.5, and pt requesting melatonin (pts own med). Orders for melatonin 10mg po qhs, send u/a. Tylenol already given per emar.
[2021-04-24 22:13] LABS: Microscopic, Urine URINE MICROSCOPIC (MICROSCOPIC)
[2021-04-24 22:17] LABS: Appearance,Urine CLEAR (Clear); Bilirubin,Urine Negative (Negative); Blood, Urine 2+ (Negative); Color,Urine YELLOW (Yellow); Glucose,Urine (UA) Negative (Negative); Ketones,Urine Negative (Negative); Leukocyte Esterase,Urine Negative (Negative); Nitrate,Urine Negative (Negative); PH,Urine 5.5 (5.0-8.5); Protein,Urine Negative (Negative); Urobilinogen,Urine 0.2 EU/dl (0.2)
[2021-04-24 22:32] LABS: Bacteria,Urine 1+ /lpf; Mucus,Urine 1+ /lpf; WBC,Urine Occasional #/hpf (0-3)
--- NOTE | 2021-04-24 23:15 | PC.NURSE ---
2015: LATE ENTRY: PT ASSISTED TO BSC. LINENS CHANGED. PT STATES SHE DOESN'T KNOW WHAT'S WRONG, ITS JUST POURING OUT OF ME . PT TYPICALLY IS CONTINENT OF URINE AND BOWELS. PT TOLERATED ACTIVITY WELL.
--- NOTE | 2021-04-24 23:17 | PC.NURSE ---
21:15 PURE WICK PLACED FOR PT COMFORT. PT V/U
--- NOTE | 2021-04-25 03:48 | PC.NURSE ---
PT HAS RESTED INTERMITTENTLY THROUGHOUT SHIFT WITH NO C/O PAIN. VS REMAIN STABLE CHARTED. NO ACUTE CHANGES IN ASSESSMENT. XEROFORM DRESSING TO LEFT HIP REMAINS CDI WITH ICE PACK IN PLACE ORDERED. PUREWICK REMAINS IN PLACE. URINE CULTURE PENDING. WILL CONTINUE TO MONITOR.
[2021-04-25 04:20] VITALS: BP 105/62; PULSE 100; RESP 18; TEMP 37.6; O2SAT 96
[2021-04-25 06:00] VITALS: TEMP 36.8
--- NOTE | 2021-04-25 07:04 | P.PN_ITS ---
Internal Medicine - PN: Subj *Date: 04/25/21 *Time: 07:04 Interval history: Patient had a fever of 101.5 yesterday evening along with urinary incontinence after removal of her Cruz catheter. A pure wick was placed on the patient which is helped control any incontinence. Patient reports discomfort over the bladder. Fevers have resolved. Patient participated with PT and OT yesterday Exam Vital signs and Labs for Last 24 Hours: Temp Pulse Resp BP Pulse Ox 99.7 F H 100 H 18 105/62 L 96 04/25/21 04:20 04/25/21 04:20 04/25/21 04:20 04/25/21 04:20 04/25/21 04:20 Laboratory Results - last 24 hr 04/24/21 21:45: Urine Color Yellow, Urine Appearance Clear, Urine pH 5.5, Ur Specific [place] 1.010, Urine Protein Negative, Urine Glucose (UA) Negative, Urine Ketones Negative, Urine Blood 2+, Urine Nitrate Negative, Urine Bilirubin Negative, Urine Urobilinogen 0.2, Ur Leukocyte Esterase Negative, Urine RBC 3-5, Urine WBC Occasional, Ur Squamous Epith Cells 3-5, Urine Bacteria 1+, Urine Mucus 1+ I & O for Last 24 hours: Intake & Output 04/22/21 04/23/21 04/24/21 04/25/21 11:59 11:59 11:59 11:59 Intake Total 2813 / 2813 1200 / 1200 Output Total 515 / 515 2220 / 2220 Balance 2298 / 2298 -1020 / -1020 Weight 167 lb - Constitutional no acute distress - *Routine Respiratory Exam Present: CTA bilaterally - *Routine Cardiovascular Exam Present: RRR - *Routine Abdominal Exam Present: soft, normoactive bowel sounds. Absent: tenderness Assessment and Plan (1) Primary osteoarthritis of left hip Status: Acute Category: Medical Code(s): M16.12 - Unilateral primary osteoarthritis, left hip (2) S/P total hip arthroplasty Status: Acute Category: Surgical Code(s): Z96.649 - Presence of unspecified artificial hip joint (3) Anemia Status: Chronic Qualifiers: Other causes of anemia: acute posthemorrhagic Category: Medical Code(s): D64.9 - Anemia, unspecified - Assessment and plan all Dx Assessment and Plan for all problems:: 1. Await morning CBC to monitor patient's postop anemia 2. Patient will begin ceftriaxone 1 g IV daily after she has completed her course of cefazolin
[2021-04-25 07:18] LABS: Chloride 104 mmol/L (98-107); Potassium 4.1 mmoL/L (3.5-5.1); Sodium 133 mmol/L (136-145)
[2021-04-25 07:21] LABS: Anion Gap 10.1 mEq/L (5-15); Blood Urea Nitrogen 23 mg/dl (7-17); Calcium 8.7 mg/dl (8.4-10.2); Carbon Dioxide 23 mmol/L (22.0-30.0); Creatinine Clearance Estimated 51 mL/min (50-200); Estimated Glomerular Filt Rate 60 ml/min (>60); GFR (African American) 72 ML/MIN (>60); Glucose 117 mg/dl (74-100)
[2021-04-25 07:30] LABS: Basophils % 0.4 % (0.1-2.0); Eosinophils # 0.1 K/mm3 (0.0-0.4); Eosinophils % 0.9 % (0.1-12.0); Hematocrit 22.9 % (37.0-47.0); Hemoglobin 7.7 g/dL (12.2-16.2); Lymphocytes # 0.8 K/mm3 (0.7-4.5); Lymphocytes % 9.5 % (10-50); Mean Corpuscular HGB Conc 33.5 g/dL (31.8-35.4); Mean Corpuscular Hemoglobin 30.7 pg (27.0-31.2); Mean Corpuscular Volume 91.8 fl (81-99); Mean Platelet Volume 8.4 fl (7.4-10.4); Monocytes # 0.6 K/mm3 (0.1-1.0); Monocytes % 7.1 % (1.7-9.3); Neutrophils # 7.3 K/mm3 (1.8-7.8); Neutrophils % 82.1 % (37.0-80.0); Platelet Count 178 K/mm3 (142-424); Red Cell Distribution Width 12.6 % (11.5-17.5); White Blood Count 8.9 K/mm3 (4.8-10.8)
[2021-04-25 08:00] VITALS: BP 108/54; PULSE 97; RESP 19; TEMP 36.9; O2SAT 98
--- NOTE | 2021-04-25 08:52 | PC.NURSE ---
Morning assessment complete. Left leg edema noted this a.m. (+1 pitting). Pulses strong and easy to palpate. Pedal pulses palpated. Pt reports doing leg/feet ROM exercises occasionally. Surgical dressing remains CDI. will change dressing today. AYLA drain remains in place at this time.
[2021-04-25 13:48] VITALS: O2SAT 94
--- NOTE | 2021-04-25 15:01 | PC.NURSE ---
Pt assisted up to bsc to use the restroom before going back to bed.
--- NOTE | 2021-04-25 15:25 | HMH.ORTHPN ---
Subjective Date: 04/25/21 Time: 13:00 Principal diagnosis: S/p total hip arthroplasty, left Interval history: Patient is status post LEFT total hip arthroplasty post op day #2. Patient is sitting out in the chair and says she is doing well. Patient has minimal pain and says it's well-controlled with medication. No history of any nausea or vomiting. No history of any cough, chest pain, shortness of breath or palpitations. No history of any distal tingling or numbness. PN: Obj Ex Vital signs: Temp Pulse Resp BP Pulse Ox 98.4 F 97 H 19 108/54 L 94 L 04/25/21 08:00 04/25/21 08:00 04/25/21 08:00 04/25/21 08:00 04/25/21 13:48 Narrative: Laboratory Results - last 24 hr 04/24/21 21:45: Urine Color Yellow, Urine Appearance Clear, Urine pH 5.5, Ur Specific [place] 1.010, Urine Protein Negative, Urine Glucose (UA) Negative, Urine Ketones Negative, Urine Blood 2+, Urine Nitrate Negative, Urine Bilirubin Negative, Urine Urobilinogen 0.2, Ur Leukocyte Esterase Negative, Urine RBC 3-5, Urine WBC Occasional, Ur Squamous Epith Cells 3-5, Urine Bacteria 1+, Urine Mucus 1+ 04/25/21 06:06: WBC 8.9, RBC 2.50 L, Hgb 7.7 L, Hct 22.9 L, MCV 91.8, MCH 30.7, MCHC 33.5, RDW 12.6, Plt Count 178, MPV 8.4, Neut % (Auto) 82.1 H, Lymph % (Auto) 9.5 L, [place] % (Auto) 7.1, Eos % (Auto) 0.9, Baso % (Auto) 0.4, Neut # (Auto) 7.3, Lymph # (Auto) 0.8, [place] # (Auto) 0.6, Eos # (Auto) 0.1, Baso # (Auto) 0.0 04/25/21 06:06: Sodium 133 L, Potassium 4.1, Chloride 104, Carbon Dioxide 23, Anion Gap 10.1, BUN 23 H D, Creatinine 0.90, Estimated Creat Clear 51, Estimated GFR 60, Est GFR ( Amer) 72, Glucose 117 H, Calcium 8.7 Intake & Output 04/23/21 04/24/21 04/25/21 04/26/21 11:59 11:59 11:59 11:59 Intake Total 2813 / 2813 1200 / 1200 Output Total 515 / 515 2220 / 2220 Balance 2298 / 2298 -1020 / -1020 Weight 167 lb Exam: General appearance: alert, active, awake, no acute distress Cardiovascular: regular rate & rhythm, normal peripheral pulses Respiratory: No respiratory distress noted, speaks in full sentences ABD: soft and non tender Neuro: alert, awake, oriented x 3 Psych: Appropriate mood and affect On examination of the lower extremities the limb lengths are equal. Thigh and calf are soft and nontender. On examination of the LEFT hip the dressings are clean, dry and intact. The dressings are changed by me. There is no soakage of the dressings. I have also removed surgical drain. The incision looks clean and healthy. No evidence of any infection or other complications is noted. Distal pulses are 1+. Distal sensation is intact to light touch throughout. No motor deficits noted distally. - Urinary Catheter Management Cruz Cath placed during this visit: no Progress Note: A&P (1) Primary osteoarthritis of left hip Status: Acute (2) S/P total hip arthroplasty Status: Acute (3) Anemia Status: Chronic Assessment and Plan for All Diagnoses:: I have reviewed the clinical findings and progress with the patient and her daughter. Patient is doing well with regards to her hip replacement and reports no problems. She is found to have UTI and started on IV Rocephin by Dr. Wade. Patient is mobilizing well weightbearing as tolerated on the LEFT side with the walker and to continue the same. Continue DVT prophylaxis-recommend DVT prophylaxis for 6 weeks postop. Continue abduction pillow when in bed and continue standard precautions for the posterior approach hip replacement. Case management looking into discharge planning. Continue medical management as per Dr. Wade.
--- NOTE | 2021-04-25 15:31 | PC.NURSE ---
Assisted pt back to bed after using bsc. only able to void at this time, no bm, but states she passed a lot of gas . Did not tolerate this ambulatory transfer as well as she had the others earlier today. Upon getting to side of bed, became light headed and dizzy and had to sit on side of bed for a while with a wet washcloth. After a few minutes, pt then assisted to semi-fowlers position with wedge between legs. Ice pack refilled and placed over incision. Pure wick applied per pt's request for incontinence. Call light, bed side table situated. Pt states that she is wanting to nap for a while.
--- NOTE | 2021-04-25 16:55 | PC.NURSE ---
Pt is sleeping soundly. Not awakening pt for meds at this time.
--- NOTE | 2021-04-25 18:12 | PC.NURSE ---
lab at to draw blood.
[2021-04-25 18:38] LABS: Hematocrit 25.3 % (37.0-47.0)
[2021-04-25 19:01] LABS: Hemoglobin 8.6 g/dL (12.2-16.2)
[2021-04-25 20:00] VITALS: BP 131/69; PULSE 115; RESP 18; TEMP 37.6; O2SAT 97
[2021-04-26 04:00] VITALS: BP 147/80; PULSE 104; RESP 18; TEMP 36.7; O2SAT 97
--- NOTE | 2021-04-26 06:29 | PC.NURSE ---
Pt has slept in intervals this shift. A&Ox4. BLT lungs CTA. Bowel sounds present in all 4 quadrants. Pt was able to have a small bowel movement while up to the bedside commode. Pt up with x1 assistance. wedge in place while in bed. Pt with scudd to Rt leg. Pt Lt hip dressing C/D/I.
[2021-04-26 07:27] LABS: Basophils % 0.4 % (0.1-2.0); Eosinophils # 0.1 K/mm3 (0.0-0.4); Eosinophils % 1.4 % (0.1-12.0); Hematocrit 23.7 % (37.0-47.0); Lymphocytes # 0.9 K/mm3 (0.7-4.5); Lymphocytes % 9.5 % (10-50); Mean Corpuscular HGB Conc 33.6 g/dL (31.8-35.4); Mean Corpuscular Hemoglobin 30.6 pg (27.0-31.2); Monocytes # 0.5 K/mm3 (0.1-1.0); Monocytes % 5.6 % (1.7-9.3); Neutrophils # 7.7 K/mm3 (1.8-7.8); Neutrophils % 83.2 % (37.0-80.0); Platelet Count 197 K/mm3 (142-424); Red Blood Count 2.61 M/mm3 (4.20-5.40); White Blood Count 9.2 K/mm3 (4.8-10.8)
--- NOTE | 2021-04-26 07:32 | HMH.ACPN2 ---
Internal Medicine - PN: Subj *Date: 04/26/21 *Time: 07:32 Interval history: Patient complains of bladder spasm. Most of her bladder spasm occurs overnight. Pure wick is still in place. Patient was started on Rocephin yesterday evening for potential UTI. Culture is pending Exam Vital signs and Labs for Last 24 Hours: Temp Pulse Resp BP Pulse Ox 98.1 F 104 H 18 147/80 H 97 04/26/21 04:00 04/26/21 04:00 04/26/21 04:00 04/26/21 04:00 04/26/21 04:00 Laboratory Results - last 24 hr 04/25/21 06:06: Sodium 133 L, Potassium 4.1, Chloride 104, Carbon Dioxide 23, Anion Gap 10.1, BUN 23 H D, Creatinine 0.90, Estimated Creat Clear 51, Estimated GFR 60, Est GFR ( Amer) 72, Glucose 117 H, Calcium 8.7 04/25/21 18:15: Hgb 8.6 L D, Hct 25.3 L 04/26/21 06:59: WBC 9.2, RBC 2.61 L, Hgb 8.0 L, Hct 23.7 L, MCV 91.0, MCH 30.6, MCHC 33.6, RDW 13.0, Plt Count 197, MPV 8.0, Neut % (Auto) 83.2 H, Lymph % (Auto) 9.5 L, [place] % (Auto) 5.6, Eos % (Auto) 1.4, Baso % (Auto) 0.4, Neut # (Auto) 7.7, Lymph # (Auto) 0.9, [place] # (Auto) 0.5, Eos # (Auto) 0.1, Baso # (Auto) 0.0 I & O for Last 24 hours: Intake & Output 04/23/21 04/24/21 04/25/21 04/26/21 11:59 11:59 11:59 11:59 Intake Total 2813 / 2813 1200 / 1200 Output Total 515 / 515 2220 / 2220 1200 / 1200 Balance 2298 / 2298 -1020 / -1020 -1200 / -1200 Weight 167 lb - Constitutional no acute distress - *Routine Respiratory Exam Present: CTA bilaterally - *Routine Cardiovascular Exam Present: RRR - *Routine Abdominal Exam Present: soft, normoactive bowel sounds. Absent: tenderness Assessment and Plan (1) Primary osteoarthritis of left hip Status: Acute Category: Medical Code(s): M16.12 - Unilateral primary osteoarthritis, left hip (2) S/P total hip arthroplasty Status: Acute Category: Surgical Code(s): Z96.649 - Presence of unspecified artificial hip joint (3) Anemia Status: Chronic Qualifiers: Other causes of anemia: acute posthemorrhagic Category: Medical Code(s): D64.9 - Anemia, unspecified (4) Cystitis Status: Suspected Category: Medical Code(s): N30.90 - Cystitis, unspecified without hematuria - Assessment and plan all Dx Assessment and Plan for all problems:: 1. Patient is medically stable and once bed has been secured at [facility] facility patient may be discharged 2. Continue iron supplementation for her postoperative anemia 3. Continue antibiotics at discharge for suspected UTI until culture is available. Recommend Bactrim DS twice daily for additional 5 days. 4. Begin oxybutynin for bladder spasm.
[2021-04-26 08:00] VITALS: BP 109/52; PULSE 105; RESP 20; TEMP 36.7; O2SAT 97
--- NOTE | 2021-04-26 08:00 | PC.NURSE ---
PATIENT ASSESSMENT COMPLETED AT THIS TIME. A/OX4. LUNGS CTA AND BOWEL SOUND ACTIVE X4. PATIENT REPORTS SHE HAS BEEN USING HER INCENTIVE SPRIOMETER. IV SALINE LOCKED TO RIGHT WRIST. PULSES 2+ AND CAP REFILL <3 SECONDS. 1+ EDEMA TO RIGHT LOWER EXTREMITIES AND 2+ IN LEFT LOWER. INCISION NOTED TO PATIENTS LEFT HIP AREA. COVERED IN XEROFORM DRESSING THAT IS C/D/I. PT HAS SCATTERED PETECHIA IN THE LEFT THIGH AREA. SKIN ASSESSMENT COMPLETE. NO OPEN WOUNDS NOTED. PT DENIES NUMBNESS/TINGLING AND DENIES PAIN AT THIS TIME. NO CURRENT NEEDS. PT REPORTS OCCASIONAL DIZZINESS WITH AMBULATION. IS PALE IN COLOR.
--- NOTE | 2021-04-26 09:43 | SW/DCPLANNER ---
PATIENT HAS BEEN APPROVED BY HER [employer] MEDICARE TO GO TO [facility] TODAY TO START SKILLED REHAB SERVICES... I HAVE SENT A MESSAGE TO DR BARRON TO DO THE DISCHARGE SUMMARY AND ORDER FOR HER TO LEAVE SOON POSSIBLE TODAY...
[2021-04-26 10:47] LABS: Coronavirus 19, PCR Not Detected (NotDetected); Influenza A, PCR Not Detected (NotDetected); Influenza B, PCR Not Detected (NotDetected)
--- NOTE | 2021-04-26 13:00 | PC.NURSE ---
DR. BARRON AT BEDSIDE. REPORT GIVEN. GOING TO D/C PATIENT
--- NOTE | 2021-04-26 13:01 | HMH.DCSUM ---
General - General Admission date:: 04/23/21 Discharge date: 04/26/21 HPI HPI: Patient is an 85-year-old female with advanced osteoarthritis of the LEFT hip unresponsive to conservative management. The arthritis is causing severe pain and significant disability and has not responded well to conservative management. Her mobility and quality of life is severely impacted. The pain is also affecting her lifestyle, activities of daily living and significantly impacting her sleep. Also she is at a high risk of falls from the arthritis. Therefore, a total hip arthroplasty is indicated to relieve pain and to reduce the disability and risk of falls. Please refer to my office note for full details. Hospital Course Hospital Course: Following it difficult but uncomplicated primary total hip arthroplasty patient was admitted to the hospital and has progressed well. The postoperative check x-ray was satisfactory with good alignment and fixation of the components. Patient was advised to ambulate weight-bearing as tolerated on the left side. Patient managed this very well using the walker. Her pain is well controlled with oral analgesics. The surgical incision is clean and dry without any active discharge or signs of infection. Distal neurovascular status is intact. No clinical signs of DVT. Patient is eating and drinking well without any problems. Patient is medically stable at the time of discharge and was cleared for discharge by Dr. Wade and also the physical therapy. The dressings were changed and surgical drain removed on the second postoperative day and the surgical incision is healthy and healing well. No signs of any erythema, induration or discharge noted. Patient was started on Xarelto 10 mg daily for DVT prophylaxis after surgery. The neurovascular status in both lower extremities is intact. Pedal pulses 1+ bilaterally and fully sensate distally. On the day of discharge, the incision is clean and dry. Patient had low-grade fever on the first postoperative day, thought to be secondary to UTI. She started on antibiotics for this and is being discharged on oral Bactrim DS for 5 days. She is also experiencing bladder spasms and started on oxybutynin for this. Patient was started on oral ferrous sulfate for postoperative anemia. Patient is afebrile at the time of discharge. Patient is being discharged to a custodial facility for postoperative rehab. Condition at discharge: improved and stable. Treatments and Procedures: Total hip arthroplasty, left hip; date of surgery 04/23/2021. Objective Vital signs: Temp Pulse Resp BP Pulse Ox 98.1 F 105 H 20 109/52 L 97 04/26/21 08:00 04/26/21 08:00 04/26/21 08:00 04/26/21 08:00 04/26/21 08:00 no acute distress - *Routine HEENT Exam Head: Present: normocephalic Eye: Present: EOMI ENT: Present: mucous membranes moist - *Routine Neck Exam Present: supple, full ROM - *Routine Respiratory Exam Present: CTA bilaterally - *Routine Cardiovascular Exam Present: RRR - *Routine Abdominal Exam Present: soft, normoactive bowel sounds. Absent: tenderness - *Routine Extremities Exam Comments: On examination of the lower extremities the limb lengths are equal. Thigh and calf are soft and nontender. On examination of the left hip the dressings are clean, dry and intact. There is no soakage of the dressings. No evidence of any infection or other complications is noted. Distal pulses are 1+. Distal sensation is intact to light touch throughout. No motor deficits noted distally. - *Routine Skin Exam Present: warm, normal turgor. Absent: rash - *Routine Neurological Exam Present: alert, oriented X3, moving all extremities - Routine Psychiatric Exam Present: normal affect, cooperative Results Labs on day of discharge: Labs from last 24 hours 04/26/21 04/26/21 04/25/21 10:17 06:59 18:15 WBC 9.2 RBC 2.61 L Hgb 8.0 L 8.6 L D Hct 23.7 L 25.3 L MCV
--- NOTE | 2021-04-26 13:30 | PC.NURSE ---
REPORT GIVEN [facility] AT [facility].
--- NOTE | 2021-04-26 13:40 | PC.NURSE ---
PATIENT HAS VOIDED ADEQUATE AMOUNT TODAY IN BRIEF AND IN BEDSIDE COMMODE. PATIENT PAD CHANGED AND FRESH ONE APPLIED. PT WAS NOTED TO HAS REDNESS AT TOP OF BUTTOCKS- TOLD PATIENT TO MAKE SURE THEY SAY ON TOP OF THIS IN THE SENIOR CARE AND MAKE SURE SHE IS SHIFTING HERSELF FREQUENTLY. HAS DONE WELL WITH AMBULATING.
--- NOTE | 2021-04-26 13:58 | PC.NURSE ---
PATIENT LEFT UNIT AT THIS TIME WITH EMS PERSONNEL. ALL PERSONAL BELONGINGS TAKEN WITH PATIENT
== END 2021-04-26 13:58 ==
LOC: 2ND 06:25 → OB 21:10
PROVIDERS: Emergency Medicine; Admitting Provider Orthopaedic Surgery; PCP Family Medicine; Visit Provider Orthopaedic Surgery
PROC: (CPT 27130; principal; 2021-04-23 07:30)
DX: M16.12 Unilateral primary osteoarthritis, left hip (principal); D64.9 Anemia, unspecified; N30.90 Cystitis, unspecified without hematuria; I10 Essential (primary) hypertension; E78.5 Hyperlipidemia, unspecified; Z96.641 Presence of right artificial hip joint; N32.89 Other specified disorders of bladder
CPT/HCPCS: 27130; G0378; 36415; 73502; 80048; 81001; 85014; 85018; 85025; 86850; 87086; 96374; 97110; 97116; 97163; 97166; 97530; C1713; C1776; J2405; J3370; U0003

== ENCOUNTER → 2021-05-09 09:04 | Outpatient (CLI) | payer MEDICARE, SELFPAY ==
--- NOTE | 2021-05-09 09:10 | XR_ITS ---
PROCEDURE: XR HIP LT 2-3V W/PELVIS CLINICAL INDICATION: SP LT LUIS, sx 04/23/21 the the COMPARISON: CR XR HIP LT 2-3V W/PELVIS from 04/04/2021 CR XR HIP LT 2-3V W/PELVIS from 04/23/2021 FINDINGS: Good alignment status post total left hip prosthesis placement. No evidence of prosthesis loosening or dislocation. At least 1 the acetabular screws extends beyond the medial cortex of the bony pelvis by approximately 11 mm. There is a healing fracture involving the lateral aspect of the acetabular roof. Knee AP view of the pelvis also shows good alignment of the total right hip prosthesis. Severe degenerative changes are present in the lumbar spine. IMPRESSION: Good alignment status post total left hip prosthesis placement. Healing lateral acetabular roof fracture. Dictated by: Masoud Woody MD 05/09/2021 14:12 Masoud Woody MD in [facility] 05/09/2021 14:12
== END ==
PROVIDERS: PCP Family Medicine; Visit Provider Orthopaedic Surgery
DX: Z96.649 Presence of unspecified artificial hip joint (principal)
CPT/HCPCS: 73502

== ENCOUNTER → 2021-05-23 10:00 | Outpatient (CLI) | payer MEDICARE, SELFPAY ==
--- NOTE | 2021-05-23 10:04 | XR_ITS ---
PROCEDURE: XR HIP LT 2-3V W/PELVIS CLINICAL INDICATION: sp LT LUIS, sx 04/23/21 COMPARISON: CR XR HIP LT 2-3V W/PELVIS from 05/09/2021 FINDINGS: AP view of the pelvis shows bilateral total hip prosthesis in place. There is good alignment. Lateral acetabular rim fracture once again noted not significantly changed. There is good alignment of the hip prosthesis. IMPRESSION: Overall no change good alignment status post left total hip replacement Dictated by: Masoud Woody MD 05/23/2021 11:17 Masoud Woody MD in [facility] 05/23/2021 11:17
== END ==
PROVIDERS: PCP Family Medicine; Visit Provider Orthopaedic Surgery
DX: M25.552 Pain in left hip; Z96.642 Presence of left artificial hip joint
CPT/HCPCS: 73502

== ENCOUNTER 2021-06-19 10:31 | Emergency (ER) | payer MEDICARE, SELFPAY ==
[2021-06-19 10:32] VITALS: BP 145/87; PULSE 77; RESP 18; TEMP 36.9; O2SAT 98; BMI 30.7
[2021-06-19 11:00] VITALS: BP 138/76; PULSE 90; O2SAT 99
--- NOTE | 2021-06-19 11:02 | HMH.EDGENADL ---
ED Disposition Clinical Impression: Facial laceration Qualifiers: Encounter type: initial encounter Qualified Code(s): S01.81XA - Laceration without foreign body of other part of head, initial encounter Fall Qualifiers: Encounter type: initial encounter Qualified Code(s): W19.XXXA - Unspecified fall, initial encounter Contusion, hip Qualifiers: Encounter type: initial encounter Laterality: left Qualified Code(s): S70.02XA - Contusion of left hip, initial encounter Disposition: Home, Self-Care Condition on Discharge: Good Instructions: How to Prevent Falls, DI for Closed Head Injury, DI for Laceration Repair-Skin Glue Additional Instructions: Tylenol for pain. Additional instructions for HEAD INJURY: See your physician as soon as possible for further evaluation. Return immediately if severe headache, vomiting, problems with vision or speech, numbness or weakness of the extremities, or severe neck pain. Referrals: Jean Wade MD [Primary Care Provider] - - Critical Care Critical Care Time: No Attestation: On 06/19/21, the high probability of a clinically significant, sudden or life threatening deterioration of the following system(s) required my full and direct attention, intervention and personal management. The time I documented below is in addition to time spent performing reported procedures but includes the following listed in this critical care notation. Medical Decision Making - Tunde Inquiry Pt receiving controlled substance: No Vital Signs: 06/19/21 10:32 06/19/21 11:00 Temperature 98.4 F Temperature Source Oral Pulse Rate 90 Pulse Rate [Right Radial] 77 Respiratory Rate 18 Blood Pressure 138/76 Blood Pressure [Right Arm] 145/87 H Blood Pressure Mean 105 Blood Pressure Mean [Right Arm] 106 Blood Pressure Source [Right Arm] Automatic Cuff Blood Pressure Position [Right Arm] Sitting 02 Sat by Pulse Oximetry 98 99 Oxygen Delivery Method Room Air - Radiology Data #1 Image(s): Hip Image Reviewed: Yes I reviewed the patient's radiology image, Yes I have reviewed radiologist's interpretation PROCEDURE: XR HIP LT 2-3V W/PELVIS CLINICAL INDICATION: fall Pain COMPARISON: CR XR HIP LT 2-3V W/PELVIS from 05/23/2021 FINDINGS: There has been bilateral total hip prosthesis placement. No acute fracture or dislocation is evident. No lytic or blastic change. No change in the intrapelvic extension of 1 of the screws within the left acetabular cup. Severe degenerative changes of the lumbar spine. IMPRESSION: No acute findings. Dictated by: Masoud Woody MD 06/19/2021 12:06 Masoud Woody MD in [facility] 06/19/2021 12:06 - CT Data CT Scan: Head Time Received: 12:[address] Reviewed: Yes: I have viewed the radiologist's interpretation Findings Narrative: PROCEDURE: CT HEAD/BRAIN WO CON CLINICAL INDICATION: fell, hit head COMPARISON: No exams were available for comparison TECHNIQUE: Axial images obtained. All CT scans at the facility use one or more dose reduction, viz: automated exposure control, ma/kV adjustment per patient size (including targeted exams where dose is matched to indication, i.e. head), or iterative reconstruction technique. FINDINGS: No midline shift, mass effect, intracranial hemorrhage, hydrocephalus, or extra-axial fluid collection is evident. Small hyperdensities are present in the medial basal ganglia on both sides within the globus pallidus slightly more prominent on the right and may be related to early calcification. The calvarium has an unremarkable appearance. No mastoid effusion. There is mild mucosal thickening of the sphenoid sinus on the right posteriorly. IMPRESSION: No acute intracranial finding Dictated by: Masoud Woody MD 06/19/2021 12:30 Masoud Woody MD in [facility] 06/19/2021 12:30 General Adult HPI - General Chief complaint: Fall Stated complaint: AO [id number] fell in hospi
--- NOTE | 2021-06-19 11:03 | PC.NURSE ---
pt applied to dermabond to laceration to L hoahaoism area
--- NOTE | 2021-06-19 11:03 | PC.NURSE ---
notified rad of orders on pt
[2021-06-19 12:00] VITALS: BP 146/91; PULSE 77; RESP 16; O2SAT 99
[2021-06-19 12:33] VITALS: BP 152/88; PULSE 53; RESP 18; O2SAT 99
[2021-06-19 12:48] VITALS: BP 152/88; PULSE 53; RESP 18; TEMP 36.9; O2SAT 99
== END 2021-06-19 12:48 | disposition home or self-care (01) ==
PROVIDERS: Emergency Provider Emergency Medicine; PCP Family Medicine
DX: S01.81XA Laceration without foreign body of other part of head, initial encounter (principal); S70.02XA Contusion of left hip, initial encounter; W01.0XXA Fall on same level from slipping, tripping and stumbling without subsequent striking against object, initial encounter; Y92.89 Other specified places as the place of occurrence of the external cause; I10 Essential (primary) hypertension; E78.5 Hyperlipidemia, unspecified; Z88.0 Allergy status to penicillin; Z88.8 Allergy status to other drugs, medicaments and biological substances; Z96.642 Presence of left artificial hip joint
CPT/HCPCS: 12011; 70450; 73502; 99282

== ENCOUNTER → 2021-08-07 09:17 | Outpatient (CLI) | payer MEDICARE, SELFPAY ==
--- NOTE | 2021-08-07 09:20 | XR_ITS ---
PROCEDURE: XR HIP LT 2-3V W/PELVIS CLINICAL INDICATION: sp LT total hip, sx 04/23/21 COMPARISON: CR XR HIP LT 2-3V W/PELVIS from 06/19/2021 FINDINGS: Status post total left hip replacement with good alignment. No change in the acetabular cup screws 1 which extends beyond the bony margin the pelvis. Status post right total hip replacement as well on the AP view of the pelvis. Degenerative changes lumbar spine. No acute fracture or dislocation. IMPRESSION: No change status post bilateral total hip replacement Dictated by: Masoud Woody MD 08/07/2021 10:28 Masoud Woody MD in [facility] 08/07/2021 10:28
== END ==
PROVIDERS: PCP Family Medicine; Visit Provider Orthopaedic Surgery
DX: M25.552 Pain in left hip; Z96.642 Presence of left artificial hip joint
CPT/HCPCS: 73502

== ENCOUNTER 2021-08-14 09:00 | Outpatient (RCR) | payer MEDICARE, SELFPAY ==
--- NOTE | 2021-06-14 10:35 | HMH.PTOPEV ---
PT Outpatient Evaluation Rehab PT Outpatient Evaluation Start: 06/14/21 09:49 Freq: Status: Active Protocol: Document 06/14/21 10:20 DASH (Rec: 06/14/21 10:34 DASH [id number]) Electronically Signed By Jose Buenrostro, PT 06/14/21 10:20 Outpatient Therapy Subjective History Subjective History Patient is an 85 year old female presenting to outpatient PT with reports of L hip pain S/P L LUIS performed 04/23/21. Patient reports hx of L hip pain starting 09/2020. She was discharged after surgery to SNF for approx 2 weeks. She then completed an episode of home health PT. Patient reports symptoms similar to sciatic nerve pain. Comorbidities include hx of R LUIS, HL, OA and lumbar spine tumor removal. Chief Complaint Pain,Stiff Symptom Type Ache,Numbness Symptoms Relieved By Activity Symptoms Aggravated By Sitting Prior Functional Limitations Housework,Standing,Walking, Stairs Current Functional Limitations Housework,Standing,Walking, Balance Level of pain today (0-10) 0 Pain scale - at its best (0-10) 0 Pain scale - at its worst (0-10) 8 Hip/Knee Eval Gait Observation General Gait Pattern Observation Antalgic Gait,Decrease Weight Bear (L) Assistive Device Assistive Devices Straight Cane Palpation Tenderness left Knee Palpation Finding Tenderness Knee Palpation Overall Comment Hip surgical incision, piriformis 3/4 MMT Hip Flexion Strength Grade 4- Good- Hip Abduction Strength Grade 4- Good- Hip Adduction Strength Grade 3+ Fair+ Hip External Rotation Strength Grade 3+ Fair+ Hip Internal Rotation Strength Grade 3+ Fair+ Knee Extension Strength Grade 4 Good Knee Flexion Strength Grade 4 Good ROM Hip Flexion w/Knee Flexed Passive Range 85 of Motion (degrees) Hip Flexion w/Knee Extended Passive 40 Range of Motion (degrees) Hip Abduction Passive Range of Motion ( 40 degrees) Hip Extension Passive Range of Motion ( NT degrees) Hip External Rotation Passive Range of 10 Motion (degrees) Hip Internal Rotation Passive Range of 8 Motion (degrees) Knee ROM Reason Not Measured Within Functional Limits Special Tests Sciatic Nerve Tensi
--- NOTE | 2021-07-12 10:14 | HMH.RHREAS ---
Rehab Reassessment Rehab OP Re-assessment Start: 07/12/21 10:03 Freq: Status: Active Protocol: Document 07/12/21 10:04 DASH (Rec: 07/12/21 10:13 DASH [id number]) Electronically Signed By Jose Buenrostro, PT 07/12/21 10:04 Rehab Re-assessment Subjective Subjective Patient reports 65% improvement since start of care. Objective Objective Notes L hip PROM: flx 92; abd 45; add 35; ER 28; IR 5; ext 3 MMT: hip flx 4/5; hip abd/add 4+/5; hip ER/IR 4+/5; hip ext 4/5; knee flx 5/5; knee ext 4+ /5 Pain: 0/10 currently; 2/10 at worst over past week SLS: left 3/10; R 7/10 Special tests: negative Assessment Progress Assessment Progressing as Expected Assessment Notes Objective improvements as noted above. Rx has focused on LLE stretching, strengthening and neuro-edna. Patient does not require modalities for pain modulation . Patient experienced a fall approx 3 weeks ago in which she lost her balance and hit her head. ER diagnostics/ imaging negative. Patient demonstrates fear avoidance with all standing/ambulatory activities. Persistent functional limitations with all standing and ambulatory activities. Patient would benefit from continuing skilled PT services in order to progress strength and improve balance to address functional limitations. Patient goals met STG's Goals Not Met LTG's Revised Goals NA Plan Plan Continue with current POC. Frequency of Therapy 2x/week Duration of therapy 4 weeks Time and Billing Re-Eval Time 15 Re-Eval Billing Units 1 PHYSICIAN CERTIFICATION: I certify the specified therapy services for Leticia Alonzo are required, authorized, and reviewed every 30 days.
== END 2021-08-14 09:05 | disposition home or self-care (01) ==
LOC: PT 09:00
PROVIDERS: PCP Family Medicine; Visit Provider Orthopaedic Surgery
DX: M25.552 Pain in left hip (principal); Z96.642 Presence of left artificial hip joint
CPT/HCPCS: 97010; 97014; 97110; 97112; 97163; 97164; G0283

== ENCOUNTER → 2021-10-30 10:08 | Outpatient (CLI) | payer MEDICARE, SELFPAY ==
--- NOTE | 2021-10-30 10:12 | XR_ITS ---
FINAL REPORT CLINICAL HISTORY: sp LT LUIS, sx 04/23/21 COMPARISON: August 07, 2021 FINDINGS: Left hip with pelvis. There is no acute fracture or dislocation. There has been bilateral hip arthroplasty. There are hypertrophic changes along the left greater trochanter. IMPRESSION: Postoperative and degenerative changes. Reviewed, Interpreted and Dictated by Eber Knight MD Transcribed by Mohan Meyers Authenticated by Eber Knight MD on 10/30/2021 11:16:04 AM [facility]
== END ==
PROVIDERS: PCP Family Medicine; Visit Provider Orthopaedic Surgery
DX: M25.552 Pain in left hip; Z96.642 Presence of left artificial hip joint
CPT/HCPCS: 73502

== ENCOUNTER → 2022-04-08 10:24 | Outpatient (CLI) | payer MEDICARE, SELFPAY ==
--- NOTE | 2022-04-08 10:31 | XR_ITS ---
FINAL REPORT CLINICAL HISTORY: hip pain COMPARISON: 10/30/2021 FINDINGS: LEFT HIP Two views of the left hip including an AP pelvis demonstrate bilateral hip arthroplasty, stable. No acute fracture is seen. There is degenerative change in the lower lumbar spine which is stable. The visualized bony structures are well aligned. No soft tissue abnormality is seen. IMPRESSION: Postoperative and degenerative change, stable No acute bony abnormality. Reviewed, Interpreted and Dictated by Josh Herman III, MD Transcribed by Nehal Wallace Authenticated and [facility]
--- NOTE | 2022-04-08 10:31 | XR_ITS ---
FINAL REPORT CLINICAL HISTORY: hip pain COMPARISON: 10/30/2021 pelvis radiograph FINDINGS: RIGHT HIP Two views of the right hip demonstrate right hip arthroplasty. There is no acute fracture or dislocation. No soft tissue abnormality is seen. IMPRESSION: Stable exam. No acute bony abnormality. Reviewed, Interpreted and Dictated by Josh Herman III, MD Transcribed by Nehal Wallace Authenticated and [facility]
== END ==
PROVIDERS: PCP Nurse Practitioner Family; Visit Provider Orthopaedic Surgery
DX: S70.00XA Contusion of unspecified hip, initial encounter (principal); M25.552 Pain in left hip; M25.551 Pain in right hip
CPT/HCPCS: 73502

== ENCOUNTER → 2022-05-07 14:22 | Outpatient (CLI) | payer MEDICARE, SELFPAY ==
--- NOTE | 2022-05-07 14:23 | MM_ITS ---
PROCEDURE INFORMATION: Exam: MG Bilateral Screening 3D Mammography Exam date and time: 05/07/2022 2:18 PM Age: 86 years old Clinical indication: Screening examination; Additional info: Screening mammogram TECHNIQUE: Imaging protocol: Bilateral Screening tomosynthesis and 2D mammography including computer-aided detection (CAD) when performed. COMPARISON: 1. MG DMSB DIG MAMM-SCREEN SUMAN W/CAD 04/01/2017 10:01 AM 2. MG DMSB DIG MAMM-SCREEN SUMAN 04/05/2014 4:37 PM 3. MG DMSB DIGITAL MAMM-SCREEN BILATERAL 11/17/2012 10:01 AM FINDINGS: MAMMOGRAPHY: Breast composition: There are scattered areas of fibroglandular density. Mass: No suspicious masses. Architectural distortion: No suspicious distortion. Calcifications: There is a new grouping of calcifications in the 6 o'clock position of the lower right breast, far posterior depth. Asymmetric density: None. Skin thickening: None. Axillary adenopathy: None. IMPRESSION: 1. Recommend right breast spot magnification CC/ML views for further evaluation of a grouping of calcifications in the 6 o'clock position of the lower right breast, far posterior depth. 2. No definite mammographic evidence of malignancy in the left breast. ASSESSMENT: BI-RADS Category 0: Incomplete- Need Additional Imaging Evaluation and/or Prior Mammograms for Comparison
== END ==
PROVIDERS: PCP Nurse Practitioner Family; Visit Provider Nurse Practitioner Obstetrics & Gynecology
DX: Z12.31 Encounter for screening mammogram for malignant neoplasm of breast (principal)
CPT/HCPCS: 77063; 77067

== ENCOUNTER 2022-05-17 11:00 | Outpatient (RCR) | payer MEDICARE, SELFPAY ==
--- NOTE | 2022-04-16 13:55 | HMH.PTOPEV ---
PT Outpatient Evaluation Rehab PT Outpatient Evaluation Start: 04/16/22 13:37 Freq: Status: Active Protocol: Document 04/16/22 13:37 DASH (Rec: 04/16/22 13:55 [email or web address] [id number]) Electronically Signed By Jose Buenrostro, PT 04/16/22 13:37 Outpatient Therapy Subjective History Subjective History Patient is an 86 year old female presenting to outpatient PT with reports of chronic R hip pain that has progressively gotten worse over the past 3 months. Signs and symptoms consistent with R greater trochanteric bursitis. Most recent imaging indiates post-op degenerative changes. Patient has had B TKA's (R apporx 6 years ago, L 04/28). Patient reports that she participates with [employer] exercise program 2x/ week, and walks at home for approximately 30 min per day. Other comorbidities include hx of HL. Chief Complaint Pain,Stiff,Weakness Symptom Type Ache,Dull Symptoms Relieved By Rest/Positioning,OTC Meds Symptoms Aggravated By Standing,Physical Activity, Walking Prior Functional Limitations Standing,Walking Current Functional Limitations Standing,Walking Symptom Description Intermittent Level of pain today (0-10) 1 Pain scale - at its best (0-10) 0 Pain scale - at its worst (0-10) 4 Hip/Knee Eval Gait Observation General Gait Pattern Observation Wide Based Gait,Decrease Weight Bear (R) Assistive Device Assistive Devices None / NA Palpation Tenderness right Knee Palpation Overall Comment R greater trochanteric bursa 3 /4 Hip Palpation Findings Tenderness MMT Hip Flexion Strength Grade 4- Good- Hip Abduction Strength Grade 4- Good- Hip Adduction Strength Grade 4 Good Hip Extension Strength Grade 4 Good Hip External Rotation Strength Grade 4 Good Hip Internal Rotation Strength Grade 4 Good Knee Extension Strength Grade 5 Normal Knee Flexion Strength Grade 5 Normal ROM Hip Flexion w/Knee Flexed Passive Range 88 of Motion (degrees) Hip Flexion w/Knee Extended Passive 52 Range of Motion (degrees) Hip Abduction Passive Range of Motion ( 26 degrees) Hip Extension Passive Range of M
== END 2022-05-17 11:05 | disposition home or self-care (01) ==
LOC: PT 11:00
PROVIDERS: PCP Nurse Practitioner Family; Visit Provider Orthopaedic Surgery
DX: M70.61 Trochanteric bursitis, right hip (principal)
CPT/HCPCS: 97010; 97014; 97035; 97110; 97140; 97163; G0283

== ENCOUNTER → 2022-05-22 14:41 | Outpatient (CLI) | payer MEDICARE, SELFPAY ==
--- NOTE | 2022-05-22 14:41 | MM_ITS ---
PROCEDURE INFORMATION: Exam: MG Right Diagnostic Breast Tomosynthesis Exam date and time: 05/22/2022 2:33 PM Age: 86 years old Clinical indication: Patient recalled on the basis of a screening mammogram for further evaluation; Right breast; calcifications TECHNIQUE: Imaging protocol: Right Diagnostic tomosynthesis and 2D mammography including computer-aided detection (CAD) when performed. Unilateral or bilateral exam. COMPARISON: 1. MG MM DIG SCREENING MAMM BI W/CAD 05/07/2022 2:18 PM 2. MG DMSB DIG MAMM-SCREEN SUMAN W/CAD 04/01/2017 10:01 AM FINDINGS: MAMMOGRAPHY: Digital diagnostic magnification views of the posterior right 6 o'clock axis demonstrates uniformly dense smoothly marginated predominantly ovoid calcifications without associated soft tissue mass. The calcifications span 0.4 cm of breast tissue and are probably benign in etiology. IMPRESSION: Probably benign calcifications in the posterior right 6 o'clock axis. A six-month follow-up diagnostic right mammogram with magnification views are recommended to ensure stability over time ASSESSMENT: BI-RADS Category 3: Probably benign
== END ==
PROVIDERS: PCP Nurse Practitioner Family; Visit Provider Nurse Practitioner Obstetrics & Gynecology
DX: R92.8 Other abnormal and inconclusive findings on diagnostic imaging of breast (principal)
CPT/HCPCS: 77061; 77065; G0279

== ENCOUNTER 2022-06-10 09:45 | Emergency (ER) | payer MEDICARE, SELFPAY ==
--- NOTE | 2022-06-10 09:41 | ECG_ITS ---
APPROVED REPORT Exam: Resting ECG HR:85 bpm ECG Measurements Heart Rate 85 AXES SC 149 P 50 QRSd 79 QRS -15 QT 339 T 48 QTc 381 Conclusion SINUS RHYTHM LOW QRS VOLTAGE IN PRECORDIAL LEADS Late R wave progression No changes since 2017 tracing BORDERLINE ECG UNCONFIRMED REPORT Electronically signed by : Jean Guevara MD 06/10/2022 20:06:23
[2022-06-10 09:47] VITALS: BP 125/94; PULSE 84; RESP 18; TEMP 36.5; O2SAT 99; BMI 31.8
--- NOTE | 2022-06-10 09:51 | HMH.EDCP ---
Discharge Plan Disposition Patient Disposition: Home, Self-Care Condition: Good Chief Complaint: Chest Pain Prescriptions Prescriptions: No Action celecoxib 200 mg capsule 200 mg PO BID aspirin 81 mg tablet,delayed release (DR/EC) 81 mg PO DAILY lansoprazole 30 mg capsule,delayed release(DR/EC) 30 mg PO DAILY acetaminophen 650 mg tablet extended release 1,300 mg PO BID melatonin 5 mg capsule 10 mg PO HS methenamine hippurate 1 gram tablet 0.5 tab PO BID Premarin 0.625 mg/gram cream TOPICAL triamcinolone acetonide 0.1 % ointment 1 applic TP BID Qty: 80 3RF simvastatin 40 MG tablet 40 mg PO HS ezetimibe 10 MG tablet 10 mg PO HS cranberry tgnt-A-qferidpt coag 1 EACH tablet 2 each PO DAILY calcium carbonate-vitamin D3 1 EACH tablet 1 tab PO DAILY polyethylene glycol 3350 119 GM powder 17 gm PO DAILY Lactobacillus rhamnosus GG 1 EACH capsule 1 each PO DAILY wixeadvj-eaz-mwop-FA-lutein 1 EACH tablet 1 each PO DAILY pjtsnqehquf-E7-Kkhzirxgl serr 1 EACH tablet 2 tab PO DAILY Activity Restrictions/Add. Instructions Additional Instructions/Restrictions: Please follow-up with your primary care doctor within the next 2 to 3 days. Return to the emergency department immediately if you feel worse in any way. I believe that your chest pain is from a musculoskeletal cause. If the pain changes please return to the emergency department right away. Continue taking all medications as prescribed. Clinical Impressions Clinical Impression: Chest pain, musculoskeletal Instructions Patient Instructions: DI for Atypical Chest Pain Discharge ED Provider: Rohith Arroyo Chest Pain HPI General Chief Complaint: Chest Pain Stated Complaint: chest pain Time Seen by Provider: 06/10/22 09:51 Mode of Arrival: Ambulatory Source of Information: Patient History of Present Illness HPI narrative: The patient presents to the emergency department complaining of intermittent chest pain lasting between 15 to 60 minutes at a time and it began at 3 AM today. She attributes the pain to having done some weightlifting exercises lately. She says that the pain is reproducible with movement and palpation. But she wanted to have it checked because she heard that women have heart attacks with different symptoms from men. She denies any other symptoms. JODIE Score for Non-Stemi Age of Patient: 80-89 years old Heart Rate: 70-89 bpm Systolic Blood Pressure: 120-139 mmhg Serum Creatinine: 0.80-1.19 mg/dl CHF Killip Class: I-No CHF Other Risk Factors: None Non-Stemi Risk Score: 141 Risk Stratification: [id number] = High Risk Related Data Home Medications Medication Instructions Recorded Confirmed cranberry yxvb-W-gfgthqwh 2 each PO DAILY uti 10/19/17 05/08/22 coagulans 250 mg-30 mg-15 mg tablet ezetimibe 10 mg tablet 10 mg PO HS High cholesterol 10/19/17 05/08/22 simvastatin 40 mg tablet 40 mg PO HS High cholesterol 10/19/17 05/08/22 acetaminophen 650 mg 1,300 mg PO BID Arthritis 02/26/18 05/08/22 tablet,extended release lansoprazole 30 mg capsule,delayed 30 mg PO DAILY GERD 02/26/18 05/08/22 release melatonin 5 mg capsule 10 mg PO HS sleep 02/26/18 05/08/22 methenamine hippurate 1 gram tablet 0.5 tab PO BID UTIs 02/26/18 05/08/22 celecoxib 200 mg capsule 200 mg PO BID bones 07/20/20 05/08/22 Lactobacillus rhamnosus GG 10 1 each PO DAILY PROBIOTIC 04/24/21 05/08/22 billion cell capsule calcium carbonate 600 mg-vitamin 1 tab PO DAILY Supplement 04/24/21 05/08/22 D3 20 mcg (800 unit) tablet glucosamine UOj-U3-Kzjrtjdvi 2 tab PO DAILY BONE HEALTH 04/24/21 05/08/22 breonna 1,500 mg-400 unit-100 mg tablet multivit with 1 each PO DAILY Supplement 04/24/21 05/08/22 rzohsdvg-vyin-BV-lutein 8 mg iron-400 mcg-300 mcg tablet polyethylene glycol 3350 17 17 gm PO DAILY CONSTIPATION 04/24/21 05/08/22 gram/dose oral powder aspi
--- NOTE | 2022-06-10 09:54 | XR_ITS ---
FINAL REPORT CLINICAL HISTORY: CP COMPARISON: April 06, 2021 FINDINGS: PORTABLE CHEST A single portable view of the chest was obtained. The heart size and pulmonary vascularity are within normal limits. The mediastinum is within normal limits. No acute pulmonary abnormality is identified. There are degenerative changes in the left shoulder. IMPRESSION: No active cardiopulmonary disease. Reviewed, Interpreted and Dictated by Josh Herman III, MD Transcribed by Nehal Wallace Authenticated and [facility]
[2022-06-10 10:00] LABS: Basophils # 0.1 K/mm3 (0-0.2); Basophils % 1.5 % (0.1-2.0); Eosinophils # 0.2 K/mm3 (0.0-0.4); Eosinophils % 2.7 % (0.1-12.0); Hematocrit 42.7 % (37.0-47.0); Hemoglobin 13.6 g/dL (12.2-16.2); Lymphocytes # 1.6 K/mm3 (0.7-4.5); Lymphocytes % 20.3 % (10-50); Mean Corpuscular HGB Conc 31.9 g/dL (31.8-35.4); Mean Corpuscular Hemoglobin 31.4 pg (27.0-31.2); Mean Corpuscular Volume 98.2 fl (81-99); Mean Platelet Volume 8.4 fl (7.4-10.4); Monocytes # 0.5 K/mm3 (0.1-1.0); Monocytes % 6.8 % (1.7-9.3); Neutrophils # 5.4 K/mm3 (1.8-7.8); Neutrophils % 68.7 % (37.0-80.0); Platelet Count 246 K/mm3 (142-424); Red Blood Count 4.35 M/mm3 (4.20-5.40); Red Cell Distribution Width 12.4 % (11.5-17.5); White Blood Count 7.8 K/mm3 (4.8-10.8)
[2022-06-10 10:03] LABS: Chloride 103 mmol/L (98-107); Potassium 4.2 mmoL/L (3.5-5.1); Sodium 143 mmol/L (136-145)
[2022-06-10 10:06] LABS: Alanine Aminotransferase 19 U/L (12-78); Albumin Level 4.9 g/dl (3.5-5.0); Albumin/Globulin Ratio 1.6 (1.1-1.8); Alkaline Phosphatase 94 U/L (38-126); Anion Gap 17.2 mEq/L (5-15); Aspartate Amino Transferase 42 U/L (14-36); Bilirubin,Total 0.5 mg/dl (0.2-1.3); Blood Urea Nitrogen 29 mg/dl (7-17); Carbon Dioxide 27 mmol/L (22.0-30.0); Creatinine Clearance Estimated 52 mL/min (50-200); Estimated Glomerular Filt Rate 53 ml/min (>60); GFR (African American) 64 ML/MIN (>60); Globulin 3.1 g/dL (1.3-3.2)
[2022-06-10 10:07] LABS: Calcium 9.5 mg/dl (8.4-10.2); Glucose 130 mg/dl (74-100)
[2022-06-10 10:15] VITALS: BP 144/94; PULSE 82; RESP 18; O2SAT 98
[2022-06-10 10:23] LABS: Troponin I < 0.01 ng/ml (0.00-0.034)
[2022-06-10 10:45] VITALS: BP 145/86; PULSE 77; RESP 18; O2SAT 97
[2022-06-10 11:00] VITALS: BP 132/80; PULSE 68; O2SAT 97
[2022-06-10 11:56] VITALS: BP 130/82; PULSE 77; RESP 18; TEMP 36.5; O2SAT 97
== END 2022-06-10 11:57 | disposition home or self-care (01) ==
PROVIDERS: Emergency Provider Emergency Medicine; PCP Nurse Practitioner Family
DX: R07.89 Other chest pain (principal); Z79.82 Long term (current) use of aspirin; Z79.899 Other long term (current) drug therapy; Z88.0 Allergy status to penicillin; Z88.5 Allergy status to narcotic agent; Z96.643 Presence of artificial hip joint, bilateral
CPT/HCPCS: 71045; 80053; 84484; 85025; 93005; 99284

== ENCOUNTER → 2022-06-28 07:09 | Outpatient (CLI) | payer MEDICARE, SELFPAY | PROVIDERS: PCP Nurse Practitioner Family; Visit Provider Internal Medicine | DX: R07.9 Chest pain, unspecified (principal); R94.31 Abnormal electrocardiogram [ECG] [EKG] | CPT/HCPCS: 78452; 93017; 93306; A9502; J2785 ==

== ENCOUNTER → 2022-10-14 09:56 | Outpatient (CLI) | payer MEDICARE, SELFPAY ==
[2022-10-14 11:30] LABS: Anion Gap 10.3 mEq/L (5-15); Blood Urea Nitrogen 36 mg/dl (7-17); Calcium 9.1 mg/dl (8.4-10.2); Carbon Dioxide 25 mmol/L (22.0-30.0); Chloride 107 mmol/L (98-107); Estimated Glomerular Filt Rate 36 ml/min (>60); GFR (African American) 43 ML/MIN (>60); Glucose 128 mg/dl (74-100); Potassium 4.3 mmoL/L (3.5-5.1); Sodium 138 mmol/L (136-145)
== END ==
PROVIDERS: PCP Nurse Practitioner Family; Visit Provider Internal Medicine
DX: I20.0 Unstable angina (principal); R06.00 Dyspnea, unspecified; R07.9 Chest pain, unspecified; R94.31 Abnormal electrocardiogram [ECG] [EKG]
CPT/HCPCS: 36415; 80048

== ENCOUNTER → 2022-11-20 13:40 | Outpatient (CLI) | payer MEDICARE, SELFPAY ==
--- NOTE | 2022-11-20 13:41 | MM_ITS ---
PROCEDURE INFORMATION: Exam: MG Right Diagnostic Breast Tomosynthesis Exam date and time: 11/20/2022 1:46 PM Age: 87 years old Clinical indication: Short-term radiographic followup; Right breast; cacifications TECHNIQUE: Imaging protocol: Right Diagnostic tomosynthesis and 2D mammography including computer-aided detection (CAD) when performed. Unilateral or bilateral exam. COMPARISON: 1. MG MM DIG MAMM DX UNILAT RT CAD 05/22/2022 2:33 PM 2. MG MM DIG SCREENING MAMM BI W/CAD 05/07/2022 2:18 PM FINDINGS: MAMMOGRAPHY: The breast tissue is composed of scattered areas of fibroglandular density. There is no stellate mass, architectural distortion or suspicious microcalcifications to suggest malignancy. No skin thickening or axillary adenopathy. Magnification views of the posterior right 6 o'clock axis demonstrate benign dystrophic calcifications. IMPRESSION: No mammographic evidence of malignancy. Benign calcifications in the posterior right breast.Annual bilateral mammographic screening is recommended in May 2023 unless otherwise clinically indicated. ASSESSMENT: BI-RADS Category 2: Benign
== END ==
PROVIDERS: PCP Nurse Practitioner Family; Visit Provider Nurse Practitioner Obstetrics & Gynecology
DX: R92.8 Other abnormal and inconclusive findings on diagnostic imaging of breast (principal)
CPT/HCPCS: 77061; 77065; G0279

== ENCOUNTER → 2023-01-09 14:57 | Outpatient (CLI) | payer MEDICARE, SELFPAY ==
--- NOTE | 2023-01-09 15:02 | XR_ITS ---
FINAL REPORT CLINICAL HISTORY: right hip pain COMPARISON: 04/08/2022 FINDINGS: RIGHT HIP Two views of the right hip demonstrat postoperative changes from right hip arthroplasty. No acute fracture is seen. Enthesophytes are noted arising from the greater trochanter. IMPRESSION: Postoperative changes with no acute bony abnormality. Reviewed, Interpreted and Dictated by Santos Cummings MD Transcribed by Bel Tejada Authenticated and [facility]
== END ==
PROVIDERS: PCP Nurse Practitioner Family; Visit Provider Orthopaedic Surgery
DX: M25.551 Pain in right hip; S70.01XA Contusion of right hip, initial encounter
CPT/HCPCS: 73502

== ENCOUNTER → 2023-02-07 08:38 | Outpatient (CLI) | payer MEDICARE, SELFPAY ==
--- NOTE | 2023-02-07 08:47 | US_ITS ---
FINAL REPORT CLINICAL HISTORY: EPIGASTRIC PAIN,NAUSEA,DYSPEPSIA COMPARISON: None FINDINGS: Sonographic images of the right upper quadrant were obtained. The pancreas is partially obscured. The liver has a coarse echogenic texture suggesting fatty infiltration. A small gallstone is identified in the gallbladder. There is no evidence of biliary ductal dilatation.The common duct measures 4mm. Limited images of the right kidney are unremarkable. IMPRESSION: Fatty liver Small gallstone noted in the gallbladder. Reviewed, Interpreted and Dictated by Eber Knight MD Transcribed by Maryuri Moseley Authenticated and [facility]
== END ==
PROVIDERS: PCP Nurse Practitioner Family; Visit Provider Nurse Practitioner Family
DX: R10.13 Epigastric pain (principal); R11.0 Nausea
CPT/HCPCS: 76705

== ENCOUNTER 2023-03-05 11:34 | Day surgery (SDC) | payer MEDICARE, SELFPAY ==
[2023-03-05] VITALS (7 sets, daily range): BP systolic 95–150; BP diastolic 56–75; PULSE 66–74; RESP 17–18; TEMP 36.1–36.2; O2SAT 90–98; BMI 31.6
--- NOTE | 2023-03-05 13:17 | EXP.ANES.CKL ---
[facility] Disclaimer: The information contained in this section may have been updated after the patient was seen, as this information can be updated by other users. Medical History Abnormal electrocardiogram [ECG] [EKG] Dyspnea Hyperlipidemia Hypertension Surgical History S/P total left hip arthroplasty S/P total right hip arthroplasty Family History Other Family history of cancer Social History Smoking Status: Never smoker alcohol intake: never substance use type: denies use current occupational status: retired Travel in the last 8 weeks: None household members: none housing: house current occupational exposures/hazards: No caffeine: No [facility] Anesthesia Checklist Patient Identification Patient Identification: Arm Band and Verbal (Name & ) Structural Data Admitted From: Home Planned Operative Procedure/s: EGD Consent for Planned Operative Procedure(s) Verified: Yes NPO Status Verified Time NPO: 00:00 Additional verifications Anesthesia Reactions: No Hx Blood Transfusions: No Blood Transfusion Reaction: No Airway Assessment C-Spine Mobility Assessed: Yes TMJ Mobility Assessed: Yes Dentition: Good Dentition Neurological Assessment Level of Consciousness: Awake Hx Seizures: No Numbness or tingling in extremities: No Anesthesia Plan Anesthesia Risk discussed: Yes Anesthesia Plan: Verified ASA Class: II Anesthesia Type: MAC
--- NOTE | 2023-03-05 13:39 | HMH.SCOPE ---
Procedure: Date: 03/05/23 Patient Date of :: 1935 Procedure Performed:: EGD Indications:: The patient is an 87 year old who presents for EGD evaluation of epigastric abdominal pain. Symptom is primarily postprandial. The patient has a recent ultrasound of the abdomen that showed gallbladder stones. Performing Provider:: Alfred Graves MD Referring Provider:: Ezra Ly APRN Sedation:: See RN records Procedure:: The gastroscope was gently passed through the incisoral orifice into the oral cavity and under direct visualization the esophagus was intubated. The endoscope was passed down the esophagus, through the stomach, and into the duodenum. Color, texture, mucosa, and anatomy of the esophagus, stomach, and duodenum were carefully examined with the scope. Findings:: Oropharynx: normal Esophagus: some tortuosity of dista esophagus EG Junction: measured at 33 cm Cardia: Moderate sized hiatal hernia, 3-4 cm in size Fundus: small gastric polyps (less than 5 mm in size) Body: Gastritis. Small gastric polyps (less than 5 mm in size). Biopsies obtained Antrum: normal Duodenal bulb: normal Duodenum (second and third portion): normal Impression: Hiatal hernia Gastritis Fundic gland polyps Recommendations:: Await pathology results Follow up with with surgery appointment Complications:: None Estimated blood obtained (mL): 0 Colonoscopy Component Colonoscopy Component Was a colonoscopy performed during today's procedure?: No
== END 2023-03-05 14:30 | disposition home or self-care (01) ==
PROVIDERS: PCP Nurse Practitioner Family; Visit Provider Internal Medicine
PROC: 0DJ08ZZ Inspection of Upper Intestinal Tract, Via Natural or Artificial Opening Endoscopic (ICD-10-PCS; CPT 43235; principal; 2023-03-05 13:00)
DX: K29.50 Unspecified chronic gastritis without bleeding (principal); K44.9 Diaphragmatic hernia without obstruction or gangrene
CPT/HCPCS: 43239; 88305

== ENCOUNTER 2023-03-14 11:00 | Outpatient (RCR) | payer MEDICARE, SELFPAY ==
--- NOTE | 2023-01-16 14:44 | HMH.PTOPEV ---
PT Outpatient Evaluation Rehab PT Outpatient Evaluation Start: 01/16/23 13:03 Freq: Status: Active Protocol: Document 01/16/23 14:23 DASH (Rec: 01/16/23 14:43 DASH [id number]) E-signed By Jose Buenrostro, PT Outpatient Therapy Subjective History Subjective History Patient is an 87 year old female presenting to outpatient PT with reports of acute R hip pain starting approx 2 weeks ago. Patient reports that she was walking at home and experienced a pinch in her hip. Pain is specific to R posterior hip. Most recent imaging indicates post-operative changes bone spurs of the greater trochanter. 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 Chief Complaint Pain,Stiff,Gives out/Unstable, Weakness Symptom Type Throb Symptoms Relieved By Rest/Positioning,OTC Meds Symptoms Aggravated By Standing,Bending/Stooping, Physical Activity,Walking, Lifting Prior Functional Limitations Standing,Walking Current Functional Limitations Lifting,Housework,Standing, Walking,Stairs,Balance Symptom Description Constant and Continuous Level of pain today (0-10) 2 Pain scale - at its best (0-10) 1 Pain scale - at its worst (0-10) 9 Hip/Knee Eval Gait Observation General Gait Pattern Observation Antalgic Gait,Decrease Weight Bear (R) Assistive Device Assistive Devices None / NA Palpation Tenderness right Knee Palpation Overall Comment R piriformis mm 3/4 Hip Palpation Findings Tenderness MMT Hip Flexion Strength Grade 4- Good- Hip Abduction Strength Grade 4 Good Hip Adduction Strength Grade 4- Good- Hip Extension Strength Grade 4- Good- Hip External Rotation Strength Grade 4- Good- Hip Internal Rotation Strength Grade 4- Good- Knee Extension Strength Grade 4 Good Knee Flexion Strength Grade 4 Good ROM Hip Flexion w/Knee Flexed Passive Range 88 of Motion (degrees) Hip Flexion w/Knee Extended Passive 42 Range of Motion (degrees) Hip Abduction Passive Range of Motion ( 38 degrees)
--- NOTE | 2023-02-12 09:02 | HMH.RHREAS ---
Rehab Reassessment Rehab OP Re-assessment Start: 02/12/23 08:05 Freq: Status: Active Protocol: Document 02/12/23 08:05 DASH (Rec: 02/12/23 09:00 DASH [id number]) E-signed By Jose Buenrostro, PT Rehab Re-assessment Subjective Subjective Patient reports 70% improvement since start of care. Objective Objective Notes MMT: BLE grossly 4/5 except for 4-/5 hip flexors Pain: 2/10 today; 4/10 at worst over past week. Neuro: WNL Assessment Progress Assessment Progressing as Expected Assessment Notes Objective improvements as noted above. Patient reporting overall decreased intensity, frequency and duration of symptoms. Main complaint cotinues to be poor endurance and balance with prolonged standing activitity. She would continue to benefit from skilled PT interventions in order to address functional limitations with all standing/ambulatory activities. Patient goals met STG's Goals Not Met LTG's Revised Goals NA Plan Plan Continue with current POC. Frequency of Therapy 2x/week Duration of therapy 4 weeks Time and Billing Re-Eval Time 16 Re-Eval Billing Units 1 PHYSICIAN CERTIFICATION: I certify the specified therapy services for Leticia Alonzo are required, authorized, and reviewed every 30 days.
== END 2023-03-14 11:05 | disposition home or self-care (01) ==
LOC: PT 11:00
PROVIDERS: PCP Nurse Practitioner Family; Visit Provider Orthopaedic Surgery
DX: M25.551 Pain in right hip (principal)
CPT/HCPCS: 97010; 97014; 97035; 97110; 97140; 97163; 97164; 97530; G0283

== ENCOUNTER → 2023-04-03 08:49 | Outpatient (POV) | payer MEDICARE, SELFPAY ==
[2023-04-03 09:13] VITALS: BP 183/83; PULSE 71; RESP 20; O2SAT 97; BMI 31.4
--- NOTE | 2023-04-03 09:16 | EXP.PAIN.OV ---
HPI Data of Consult Patient: new to practice Consult date: 04/03/23 Requesting Physician: Jenny Drake APRN Primary Care Provider: Evelyn Ly APRN Consult Narrative Reason for consult: Low back pain, right hip pain, bilateral leg numbness History of present illness: Ms. Alonzo is a 87 year old female who presents today as a new patient. She is a referral from Bhanu Evans's office. Today she rates her pain a 1 out of 10. She does state that when she is up moving around more her pain will go to about a 5 or 6 out of 10. She states that her pain is in her low back and right hip as well as numbness into her extremities. Patient does describe her pain as an achy sensation that is worse with increased activity. Patient does state that certain movements aggravate her pain and that this has been going on for years and progressively worsened over time. Patient denies any specific trauma or injury that initially led to her symptoms. She does also state that she will stand for longer periods of time and will experience numbness into her bilateral lower extremities. Patient did have a total right hip replacement done years ago and still has some pain at the incision sites and does believe it is related to arthritis. She also questions whether or not if she has 1 leg shorter than the other and may be causing additional pain symptoms due to this. Patient has just been released from physical therapy approximately 2 weeks ago and she did state that this did provide significant improvement in some of her hip pain. She does state that she will take two 650 mg Tylenol arthritis tablets in the morning and 2 at bedtime and this does help some of her symptoms. She states when it is worse she will occasionally have to take a dose during the middle of the day. Patient has tried amln-wao-qcjjunn creams such as IcyHot and Biofreeze and will even use lidocaine patches she has also tried heat and ice. She does state that she will have more soreness into her right buttocks in comparison to her left. She does have a history of having a tumor removed from her lumbar spine years ago. Patient is not on any scheduled medications. Her Tunde is [id number]. Its been reviewed and appropriate. CC: Jenny Drake APRN [facility] Disclaimer: The information contained in this section may have been updated after the patient was seen, as this information can be updated by other users. Medical History Abnormal electrocardiogram [ECG] [EKG] Dyspnea Hyperlipidemia Hypertension Surgical History S/P total left hip arthroplasty S/P total right hip arthroplasty Family History Other Family history of cancer Social History (Updated 04/03/23 @ 09:13 by Magaly Hernandes RN) Smoking Status: Never smoker alcohol intake: never substance use type: denies use current occupational status: other Travel in the last 8 weeks: None household members: none housing: house current occupational exposures/hazards: No caffeine: No Review of Systems Review of Systems Review of systems:: pertinent systems reviewed and negative unless documented below Review of systems (narrative): Review of Systems: General: No recent weight changes, no fever, no sleep disturbances Respiratory: No cough, no shortness of air, no recurring pulmonary infections Cardiovascular/peripheral vascular: No chest pain, no palpitations, no edema, no shortness of breath Gastrointestinal: No new onset incontinence, normal bowel movements reported Genitourinary: No new onset incontinence Musculoskeletal: Low back pain, right hip pain, bilateral lower extremity numbness Psychiatric: [Normal mood/affect] Neurological: [Denies weakness in extremities], [denies balance issues] Meds Home Medications and Allergie
== END ==
PROVIDERS: PCP Nurse Practitioner Family; Visit Provider Nurse Practitioner Family
DX: M54.50 Low back pain, unspecified (principal); G89.29 Other chronic pain; M25.551 Pain in right hip; R20.0 Anesthesia of skin; G57.01 Lesion of sciatic nerve, right lower limb
CPT/HCPCS: 99202; G0463

== ENCOUNTER 2023-04-22 10:14 | Day surgery (SDC) | payer MEDICARE, SELFPAY ==
[2023-04-22 10:30] VITALS: BP 141/92; PULSE 84; RESP 16; TEMP 36.4; O2SAT 96; BMI 31.2
--- NOTE | 2023-04-22 10:49 | EXP.PAIN.PRO ---
Procedure Date: 04/22/23 Time: 10:40 Anesthesiologist:: Leland Dorman CRNA Complications:: None Pre-procedure Diagnosis:: Right piriformis syndrome. Post-procedure Diagnosis:: Same Indications for Procedure:: Very pleasant 87-year-old female comes our clinic today for a right piriformis injection. Patient has had right buttock pain for quite some time. Patient reports today she has been feeling better since having physical therapy. She rates her pain 3/10. Procedure Details:: Details of the procedure explained to the patient. The patient taken to procedure room placed in the prone position. The area over the right buttock was cleaned using chlorhexidine as a cleansing solution. Using fluoroscopy guidance and a 22-gauge 3 and half inch needle the right piriformis muscle was accessed with ease. Needle position was confirmed with 0.5 cc of contrast dye with a lateral spread. At this time after negative aspiration a 5 cc solution containing 0.25% Marcaine +1% lidocaine and 40 mg of Depo-Medrol was injected. Patient tolerated procedure without difficulty. There are no complications. Plan and Disposition:: Patient was discharged without incident.
[2023-04-22 10:53] VITALS: BP 130/89; PULSE 67; RESP 16; O2SAT 96
== END 2023-04-22 10:53 | disposition home or self-care (01) ==
PROVIDERS: PCP Nurse Practitioner Family; Visit Provider Nurse Anesthetist, Certified Registered
DX: G57.01 Lesion of sciatic nerve, right lower limb (principal)
CPT/HCPCS: 20552; 77002; J1040; Q9966

== ENCOUNTER → 2023-05-05 11:19 | Outpatient (POV) | payer MEDICARE, SELFPAY ==
--- NOTE | 2023-05-05 11:26 | EXP.PAIN.SOA ---
[facility] Pain Management SOAP Note Subjective:: Patient is a pleasant 87-year-old female who presents today for follow-up of right piriformis injection on 04/22/2023. We are currently treating the patient for low back pain, right hip pain, lumbar radiculopathy symptoms, right piriformis syndrome. Today she rates her pain a 0 out of 10. Patient states she has had at least 90 to 100% relief following this injection and feels like it is still continuing to provide additional relief. Patient states she has been able to increase her activity with decreased pain. She does state that she still feels it presents however there is no pain at that site like what it was. Patient is not on any scheduled medications. Her Tunde is [id number]. Its been reviewed and appropriate. Review of Systems: General: No recent weight changes, no fever, no sleep disturbances Respiratory: No cough, no shortness of air, no recurring pulmonary infections Cardiovascular/peripheral vascular: No chest pain, no palpitations, no edema, no shortness of breath Gastrointestinal: No new onset incontinence, normal bowel movements reported Genitourinary: No new onset incontinence Musculoskeletal: Right buttocks pain Psychiatric: [Normal mood/affect] Neurological: [Denies weakness in extremities], [denies balance issues] Objective:: Physical Exam: General: Alert and oriented x3, no acute distress, pleasant and cooperative Lungs: Respirations even and unlabored, symmetrical chest expansion Eyes: PERRL Musculoskeletal: Flexion and extension of lumbar [spine] somewhat guarded secondary to pain, [antalgic gait noted] Neurological: Speech clear, no gross sensory deficit Assessment:: Degenerative disc disease of lumbar spine with lumbar radiculopathy symptoms, right hip pain, right piriformis syndrome Plan:: Patient has had 90 to 100% relief following her right piriformis injection and does not require any additional injective therapy at this time. Patient will return to clinic in 1 month for reevaluation of symptoms and plan of care. Patient has been instructed to contact the clinic with any concerns before the next appointment. Dr. Dougherty has reviewed this note and agrees with this plan of care. This note was dictated using voice recognition software and make contain errors or omissions. [facility] Disclaimer: The information contained in this section may have been updated after the patient was seen, as this information can be updated by other users. Medical History Abnormal electrocardiogram [ECG] [EKG] Dyspnea Hyperlipidemia Hypertension Surgical History S/P total left hip arthroplasty S/P total right hip arthroplasty Family History Other Family history of cancer Social History Smoking Status: Never smoker alcohol intake: never substance use type: denies use current occupational status: other Travel in the last 8 weeks: None household members: none housing: house current occupational exposures/hazards: No caffeine: No
[2023-05-05 12:04] VITALS: BP 143/83; PULSE 69; RESP 18; O2SAT 97; BMI 31.2
== END ==
PROVIDERS: Visit Provider Nurse Practitioner Family
DX: M51.16 Intervertebral disc disorders with radiculopathy, lumbar region (principal); M25.551 Pain in right hip; G57.01 Lesion of sciatic nerve, right lower limb
CPT/HCPCS: 99212; G0463

== ENCOUNTER → 2023-05-08 08:49 | Outpatient (CLI) | payer MEDICARE, SELFPAY ==
[2023-05-08 09:32] LABS: Basophils # 0.1 K/mm3 (0-0.2); Eosinophils # 0.2 K/mm3 (0.0-0.4); Eosinophils % 2.9 % (0.1-12.0); Hematocrit 38.4 % (37.0-47.0); Hemoglobin 12.8 g/dL (12.2-16.2); Lymphocytes # 0.8 K/mm3 (0.7-4.5); Lymphocytes % 13.8 % (10-50); Mean Corpuscular HGB Conc 33.3 g/dL (31.8-35.4); Mean Corpuscular Hemoglobin 32.2 pg (27.0-31.2); Mean Corpuscular Volume 96.9 fl (81-99); Mean Platelet Volume 8.4 fl (7.4-10.4); Monocytes # 0.4 K/mm3 (0.1-1.0); Monocytes % 7.2 % (1.7-9.3); Neutrophils # 4.5 K/mm3 (1.8-7.8); Neutrophils % 75.1 % (37.0-80.0); Platelet Count 185 K/mm3 (142-424); Red Blood Count 3.96 M/mm3 (4.20-5.40); Red Cell Distribution Width 12.6 % (11.5-17.5)
[2023-05-08 10:53] LABS: Alanine Aminotransferase 23 U/L (12-78); Albumin Level 4.2 g/dl (3.5-5.0); Alkaline Phosphatase 69 U/L (38-126); Anion Gap 14.8 mEq/L (5-15); Aspartate Amino Transferase 33 U/L (14-36); Bilirubin,Indirect 0.5 mg/dL (0.0-0.9); Bilirubin,Total 0.5 mg/dl (0.2-1.3); Bilirubin,Unconjugated 0.6 mg/dL (0.0-1.1); Blood Urea Nitrogen 35 mg/dl (7-17); Calcium 9.4 mg/dl (8.4-10.2); Carbon Dioxide 25 mmol/L (22.0-30.0); Chloride 102 mmol/L (98-107); Chol/HDL Ratio 3.1 (1-3.5); Cholesterol 136 mg/dl (140-200); Estimated Glomerular Filt Rate 43 ml/min (>60); GFR (African American) 52 ML/MIN (>60); Glucose 98 mg/dl (74-100); HDL Cholesterol 44 mg/dl (40-60); Magnesium 1.7 mg/dl (1.6-2.3); Potassium 4.8 mmoL/L (3.5-5.1); Sodium 137 mmol/L (136-145); Total Protein,Serum 6.7 g/dl (6.3-8.2); Triglycerides 112 mg/dl (30-150); VLDL Cholesterol 22 mg/dL (0-40)
[2023-05-08 11:04] LABS: Direct LDL Cholesterol 64.11 mg/dL (100-129)
[2023-05-08 11:05] LABS: Free T4 (Free Thyroxine) 1.15 ng/dl (0.78-2.19)
== END ==
PROVIDERS: PCP Nurse Practitioner Family; Visit Provider Nurse Practitioner
DX: R94.31 Abnormal electrocardiogram [ECG] [EKG]; R07.89 Other chest pain; Z79.899 Other long term (current) drug therapy; R06.09 Other forms of dyspnea
CPT/HCPCS: 36415; 80048; 80061; 80076; 83735; 84439; 84443; 85025

== ENCOUNTER → 2023-05-27 11:15 | Outpatient (CLI) | payer MEDICARE, SELFPAY ==
--- NOTE | 2023-05-27 11:20 | XR_ITS ---
FINAL REPORT CLINICAL HISTORY: Severe left shoulder pain/immobility FINDINGS: 3 views of the left shoulder were obtained. There is no acute fracture or dislocation. There are advanced hypertrophic changes of osteoarthritis at the glenohumeral joint. There are mild hypertrophic changes at the AC joint. There is inferior subluxation of the humeral head of uncertain significance. IMPRESSION: Advanced glenohumeral osteoarthritis with inferior subluxation of the humeral head of uncertain significance. Reviewed, Interpreted and Dictated by Eber Knight MD Transcribed by Mohan Meyers Authenticated and [facility]
== END ==
PROVIDERS: PCP Nurse Practitioner Family; Visit Provider Internal Medicine
DX: M25.512 Pain in left shoulder (principal)
CPT/HCPCS: 73030

== ENCOUNTER → 2023-05-30 16:44 | Outpatient (CLI) | payer MEDICARE, SELFPAY | PROVIDERS: PCP Internal Medicine; Visit Provider Internal Medicine | DX: N39.0 Urinary tract infection, site not specified (principal) ==

== ENCOUNTER 2023-06-02 09:39 | Emergency (ER) | payer MEDICARE, SELFPAY ==
[2023-06-02 09:40] VITALS: BP 144/78; PULSE 86; RESP 18; TEMP 36.7; O2SAT 96; BMI 30.9
--- NOTE | 2023-06-02 09:48 | HMH.EDGENADL ---
Discharge Plan Disposition Patient Disposition: Home, Self-Care Prescriptions Prescriptions: New diclofenac sodium 1 % gel 2 g topical TID Qty: 100 3RF Rx Instructions: apply to elbow and knee three times daily Discontinued celecoxib [Celebrex] 200 mg capsule 200 mg PO BID No Action aspirin 81 mg tablet,delayed release (DR/EC) 81 mg PO DAILY methenamine hippurate 1 gram tablet 0.5 g PO DAILY lansoprazole [Prevacid] 30 mg capsule,delayed release(DR/EC) 30 mg PO DAILY melatonin 5 mg capsule 10 mg PO HS tizanidine 2 mg tablet 2 mg PO Q8H PRN (Reason: muscle spasticity) Qty: 10 0RF nitrofurantoin macrocrystal 100 mg capsule 100 mg PO Q12H Qty: 10 0RF Rx Instructions: must administer with a meal/food lidocaine 5 % adhesive patch,medicated 1 patch topical DAILY Qty: 15 0RF Rx Instructions: leave on most painful area for up to 12 hrs hydrocodone-acetaminophen 5-325 mg tablet 1 tab PO Q8H PRN (Reason: pain) Qty: 10 0RF bisoprolol fumarate 5 mg tablet 5 mg PO QDAY simvastatin 40 MG tablet 40 mg PO HS cranberry ufcl-J-itjexnot coag 1 EACH tablet 2 each PO DAILY calcium carbonate-vitamin D3 1 EACH tablet 1 tab PO DAILY Lactobacillus rhamnosus GG 1 EACH capsule 1 each PO DAILY tozdtrcd-obo-gbhz-FA-vit K-lut 1 EACH tablet 1 each PO DAILY cjqvlkfizqp-N9-Jwhfvotgb serr 1 EACH tablet 2 tab PO DAILY hydrochlorothiazide 12.5 mg capsule See Rx Instructions .ROUTE .COMPLEX Rx Instructions: TAKE ONE CAPSULE BY MOUTH EVERY DAY Referrals Follow up/Referrals: Johnathon Garcia DO [Primary Care Provider] - See instructions Activity Restrictions/Add. Instructions Additional Instructions/Restrictions: Call your family doctor to establish care for this visit to the emergency department and schedule follow-up within 48 hours to ensure improvement. If you have any worsening of your condition or any other concerning signs or symptoms, return to the emergency department or your primary care doctor for further evaluation. Diclofenac as prescribed Clinical Impressions Clinical Impression: Acute pain of right knee, Osteoarthritis of right knee Discharge ED Provider: Davide Winn General Adult HPI General Chief complaint: PAIN Stated complaint: possible UTI, Rt knee swollen, Lt shoulder pain Time Seen by Provider: 06/02/23 09:40 History of Present Illness HPI narrative: 87-year-old female with history of chronic left shoulder and right knee pain presenting with acute on chronic pain. Patient states that her left shoulder has been getting worse for about 2 weeks. Is following with Dr. Drake, and orthopedics. Next appointment is tomorrow, 06/03. Patient states that left shoulder pain has been atraumatic and progressively worsening. Currently 8 out of 10 and does not radiate. Patient also states that 1 day prior to arrival, she started having pain in her right knee. Not bad, mild, at rest. Moderate to severe in intensity when standing up from seated position, walking up stairs, or any resisted knee flexion. Denies any neurologic deficits. Has been taking Tylenol, mild improvement of pain. Has not had fevers, chills, nausea, vomiting, any other concerns. States that she is not taking ibuprofen because of her creatinine. Also, recently diagnosed with urinary tract infection and started on Macrobid. This has since improved and is asymptomatic at this time. Related Data Home Medications Medication Instructions Recorded Confirmed cranberry weze-G-yplbusin 2 each PO DAILY uti 10/19/17 05/30/23 coagulans 250 mg-30 mg-15 mg tablet simvastatin 40 mg tablet 40 mg PO HS High cholesterol 10/19/17 05/30/23 lansoprazole 30 mg capsule,delayed 30 mg PO DAILY GERD 02/26/18 05/30/23 release (Prevacid) melatonin 5 mg capsule 10 mg PO HS sleep 02/26/18 05/30/23 Lactobacillus rhamnosus GG 10 1 each PO DAILY
--- NOTE | 2023-06-02 09:50 | PC.NURSE ---
WARM BLANKET PROVIDED AND PILLOW FOR RIGHT KNEE
--- NOTE | 2023-06-02 09:51 | PC.NURSE ---
DR FLORES AT BEDSIDE
--- NOTE | 2023-06-02 09:55 | PC.NURSE ---
Family at BS
--- NOTE | 2023-06-02 09:56 | PC.NURSE ---
FAMILY AT BEDSIDE
[2023-06-02 10:00] VITALS: BP 144/73; PULSE 82; RESP 18; O2SAT 97
--- NOTE | 2023-06-02 10:02 | XR_ITS ---
FINAL REPORT CLINICAL HISTORY: AP/lat/sunrise for PFS, worsening pain and swellin COMPARISON: None FINDINGS: AP, lateral and oblique views of the right knee were obtained. There is no prior exam for comparison. There is no acute osseous abnormality of the right knee. There are advanced degenerative changes present in the knee. The soft tissues are normal. There is an anterior loose body within the knee joint, as well as a small effusion. IMPRESSION: Advanced degenerative change present in the knee. Small effusion and an anterior loose body within the knee joint. Reviewed, Interpreted and Dictated by Ally Mendiola MD Transcribed by Maryuri Moseley Authenticated and [facility]
--- NOTE | 2023-06-02 10:07 | PC.NURSE ---
PT TO XR
--- NOTE | 2023-06-02 10:14 | PC.NURSE ---
PT RETURNED FROM XR
[2023-06-02 10:30] VITALS: BP 136/75; PULSE 84; O2SAT 94
--- NOTE | 2023-06-02 10:46 | PC.NURSE ---
PT RESTING COMFORTABLY, WARM BLANKET PROVIDED. FAMILY AT BEDSIDE. CALL LIGHT WITHIN REACH
[2023-06-02 11:34] VITALS: BP 136/75; PULSE 84; RESP 18; TEMP 36.7; O2SAT 94
== END 2023-06-02 11:30 | disposition home or self-care (01) ==
PROVIDERS: Emergency Provider Emergency Medicine; PCP Internal Medicine
DX: M25.561 Pain in right knee (principal); M17.11 Unilateral primary osteoarthritis, right knee; I10 Essential (primary) hypertension; E78.5 Hyperlipidemia, unspecified
CPT/HCPCS: 73562; 99283

== ENCOUNTER → 2023-06-05 09:47 | Outpatient (POV) | payer MEDICARE, SELFPAY ==
--- NOTE | 2023-06-05 10:36 | EXP.PAIN.SOA ---
[facility] Pain Management SOAP Note Subjective:: Patient is a pleasant 87-year-old female who presents today for follow-up. We are currently treating the patient for degenerative disc disease of lumbar spine with lumbar radiculopathy symptoms, lumbar facet arthropathy, right hip pain, right piriformis syndrome. Today she rates her pain a 10 out of 10. Patient states she continues to experience significant pain in her left shoulder related to a 10-year as well as her bilateral hips and her right knee. Patient states she has been going to Dr. Drake's office who did recently do cortisone injections into her shoulder hip and knee however she states she did not notice significant relief. Patient does state that she feels like these chronic pain areas have aggravated her low back symptoms and she does state that is her worst pain during today's visit. She does describe this as a constant aching, throbbing sensation that is worse with increased activity or certain movements such as bending and twisting. Patient denies any radiating symptoms into her legs. Patient does state from our last injection that we did of her right piriformis that she is still continue to get significant relief and not had any additional pain in this area. Patient is interested in any help we may be able to provide. She states she has tried topicals including lidocaine patches and Voltaren with minimal improvement. Patient is prescribed tizanidine 2 mg every 8 hours as needed however she states she does not think this really has made much improvement. Her Tunde has been reviewed and is appropriate. Review of Systems: General: No recent weight changes, no fever, no sleep disturbances Respiratory: No cough, no shortness of air, no recurring pulmonary infections Cardiovascular/peripheral vascular: No chest pain, no palpitations, no edema, no shortness of breath Gastrointestinal: No new onset incontinence, normal bowel movements reported Genitourinary: No new onset incontinence Musculoskeletal: Low back pain shoulder pain hip pain knee pain Psychiatric: [Normal mood/affect] Neurological: [Denies weakness in extremities], [denies balance issues] Objective:: Physical Exam: General: Alert and oriented x3, no acute distress, pleasant and cooperative Lungs: Respirations even and unlabored, symmetrical chest expansion Eyes: PERRL Musculoskeletal: Flexion and extension of lumbar [spine] somewhat guarded secondary to pain, [antalgic gait noted] positive Kemps test Neurological: Speech clear, no gross sensory deficit Assessment:: Degenerative disc disease of lumbar spine with lumbar radiculopathy symptoms, lumbar facet arthropathy, right hip pain, right piriformis syndrome, left shoulder pain, right knee pain Plan:: Patient is experiencing significant pain at multiple areas however her worst pain is at her low back. Patient did have limited range of motion of her lumbar spine along with a positive Kemps test during today's visit. I have discussed with the patient that she may benefit from a lumbar medial branch block. Risk and benefits were discussed with the patient and she would like to proceed forward with this plan of care. Patient is not on any blood thinners. I have discussed with the patient that we can try and see if we can get her at our [facility] location for this injection as soon as tomorrow if insurance can approve it. I will also order the patient a compounded cream and discontinue her tizanidine and change it to baclofen 5 mg twice daily and provide a 14-day supply of this medication. Patient will be scheduled for a lumbar medial branch block L4-L5 and L5-S1 bilaterally. Patient has been instructed to contact the clinic with any concerns before the next appointment. Dr. Dougherty has reviewed this note and agrees with this plan of care. This note was dictated using voice recognition software and make contain errors or omissions. [facility] Disclaimer: The information contained in thi
[2023-06-05 10:39] VITALS: BP 110/64; PULSE 73; RESP 18; O2SAT 99; BMI 30.7
== END | disposition home or self-care (01) ==
PROVIDERS: PCP Internal Medicine; Visit Provider Nurse Practitioner Family
DX: M51.16 Intervertebral disc disorders with radiculopathy, lumbar region (principal); M47.26 Other spondylosis with radiculopathy, lumbar region; M25.551 Pain in right hip; G57.01 Lesion of sciatic nerve, right lower limb; M25.512 Pain in left shoulder; M25.561 Pain in right knee
CPT/HCPCS: 99212; G0463